=== PATIENT | female | born 1935 | race Caucasian/White ===

== ENCOUNTER → 2020-04-21 20:45 | Outpatient (CLI) | payer MEDICARE, OTHER, SELFPAY ==
[2019-11-27 16:33] VITALS: BMI 24.4
[2020-04-21 21:05] LABS: Absolute Lymphocyte Count 1.49 X10^3/uL (0.83-4.51); Basophil# 0.03 X10^3/uL; Basophil% 0.4 % (0-1); Eosinophil# 0.12 X10^3/uL; Eosinophils% 1.6 % (0-5); Hematocrit 42.7 % (37-47); Hemoglobin 13.8 g/dL (12.0-15.0); Lymphocyte # 1.49 X10^3/ul (4.0); Lymphocyte % 20.4 % (19-41); Mean Corp Hgb Conc 32.3 g/dL (32-36); Mean Corpuscular Hgb 30.1 pg (27.0-32.0); Mean Platelet Vol. 12.7 fl (6.2-12.0); Monocyte% 8.2 % (0-10); NRBC Flagged by Analyzer 0 % (0-5); Neutrophil # 5.04 X10^3/uL (2.7-7.7); Neutrophil % 69.3 % (47-70); Platelet Count 144 K/mm3 (150-450); RBC Distribution Width CV 12.8 % (11.6-14.6); RBC Distribution Width SD 43.5 fl (35.1-43.9); Red Blood Count 4.59 M/mm3 (4.2-5.4); White Blood Count 7.3 K/mm3 (4.4-11.0)
[2020-04-21 21:30] LABS: ALB/GLOB Ratio 1.2 RATIO (0.9-2.4); AST(SGOT) 19 U/L (15-37); Alanine Aminotransfer ALT/SGPT 19 U/L (13-56); Alkaline Phosphatase 77 U/L (45-117); Anion Gap 7 (5-15); BUN 10 mg/dL (7-18); CRP, High Sensitivity Cardiac 1.55 mg/L; Calcium,Total 9.4 mg/dL (8.5-10.1); Chloride 104 mmol/L (98-107); Cholesterol 290 mg/dL (200); Creatinine, Serum 0.71 mg/dL (0.55-1.02); EST Glomerular Filtration Rate 83 mL/min (>60); Est Glom Filt Rate - Afr Amer 100 mL/min (>60); Globulin 3.3 g/dL (2.2-4.2); Glucose 83 mg/dL (74-106); High Density Lipoprotein 76 mg/dL; Protein, Total 7.3 g/dL (6.4-8.2); Sodium Level 139 mmol/L (136-145); Thyroid Stim Hormone (TSH) 1.85 uIU/mL (0.358-3.74); Triglycerides 187 mg/dL; Very Low Density Lipoprotein 37 mg/dL (5-40)
== END ==
PROVIDERS: Visit Provider Nurse Practitioner
DX: M62.81 Muscle weakness (generalized) (principal); R07.9 Chest pain, unspecified; K21.9 Gastro-esophageal reflux disease without esophagitis; F32.9 Major depressive disorder, single episode, unspecified; R06.02 Shortness of breath; R63.4 Abnormal weight loss; E78.5 Hyperlipidemia, unspecified; R05 Cough
CPT/HCPCS: 80053; 80061; 84443; 85025; 86141

== ENCOUNTER → 2020-06-30 21:16 | Outpatient (CLI) | payer MEDICARE, OTHER, SELFPAY ==
[2020-06-30 19:35] VITALS: BMI 25.0
[2020-06-30 21:44] LABS: Absolute Lymphocyte Count 1.42 X10^3/uL (0.83-4.51); Absolute Neutrophil Count 4.8 X10^3/uL (2.0-7.7); Basophil# 0.02 X10^3/uL; Basophil% 0.3 % (0-1); Eosinophil# 0.12 X10^3/uL; Eosinophils% 1.7 % (0-5); Hematocrit 40.9 % (37-47); Hemoglobin 13.7 g/dL (12.0-15.0); Lymphocyte # 1.42 X10^3/ul (4.0); Lymphocyte % 20.3 % (19-41); Mean Corp Hgb Conc 33.5 g/dL (32-36); Mean Corpuscular Hgb 30.9 pg (27.0-32.0); Mean Corpuscular Volume 92.1 fL (81-99); Mean Platelet Vol. 12.2 fl (6.2-12.0); Monocyte# 0.63 X10^3/uL; NRBC Flagged by Analyzer 0 % (0-5); Neutrophil # 4.81 X10^3/uL (2.7-7.7); Neutrophil % 68.6 % (47-70); Platelet Count 192 K/mm3 (150-450); RBC Distribution Width CV 12.6 % (11.6-14.6); RBC Distribution Width SD 42.3 fl (35.1-43.9); Red Blood Count 4.44 M/mm3 (4.2-5.4)
[2020-06-30 21:56] LABS: ALB/GLOB Ratio 1.2 RATIO (0.9-2.4); AST(SGOT) 17 U/L (15-37); Alanine Aminotransfer ALT/SGPT 18 U/L (13-56); Albumin, Serum 3.8 g/dL (3.2-5.0); Alkaline Phosphatase 76 U/L (45-117); Anion Gap 4 (5-15); BUN 14 mg/dL (7-18); BUN/Creat Ratio 16.3 RATIO (10-20); Calcium,Total 9.7 mg/dL (8.5-10.1); Chloride 105 mmol/L (98-107); Creatinine, Serum 0.86 mg/dL (0.55-1.02); EST Glomerular Filtration Rate 67 mL/min (>60); Est Glom Filt Rate - Afr Amer 81 mL/min (>60); Globulin 3.3 g/dL (2.2-4.2); Glucose 88 mg/dL (74-106); Potassium 4.1 mmol/L (3.5-5.1); Protein, Total 7.1 g/dL (6.4-8.2); Sodium Level 139 mmol/L (136-145)
[2020-06-30 21:57] LABS: Vitamin B12 426 pg/mL (211-911)
== END ==
LOC: OLS.AHF 21:17 → LABSPEC 07-01 07:19
PROVIDERS: PCP Nurse Practitioner; Referring Provider Nurse Practitioner; Visit Provider Nurse Practitioner
DX: R06.02 Shortness of breath (principal); R53.83 Other fatigue; R42 Dizziness and giddiness
CPT/HCPCS: 80053; 82607; 82652; 85025

== ENCOUNTER → 2020-08-19 | Outpatient (CLI) | payer MEDICARE, OTHER, SELFPAY ==
[2020-08-19 20:19] VITALS: BMI 24.6
== END | disposition home or self-care (01) ==
LOC: OLS.AHF 21:01 → LABSPEC 08-20 07:53
PROVIDERS: Referring Provider Nurse Practitioner; Visit Provider Nurse Practitioner
DX: T79.2XXA Traumatic secondary and recurrent hemorrhage and seroma, initial encounter (principal); T81.89XA Other complications of procedures, not elsewhere classified, initial encounter
CPT/HCPCS: 87070; 87205

== ENCOUNTER → 2020-10-05 | Outpatient (CLI) | payer MEDICARE, OTHER, SELFPAY ==
[2020-10-05 18:47] VITALS: BMI 24.7
[2020-10-05 21:46] LABS: Absolute Lymphocyte Count 1.49 X10^3/uL (0.83-4.51); Absolute Neutrophil Count 4.4 X10^3/uL (2.0-7.7); Basophil# 0.02 X10^3/uL; Basophil% 0.3 % (0-1); Eosinophils% 1.5 % (0-5); Hematocrit 42.8 % (37-47); Hemoglobin 13.9 g/dL (12.0-15.0); Lymphocyte # 1.49 X10^3/ul (4.0); Lymphocyte % 22.6 % (19-41); Mean Corp Hgb Conc 32.5 g/dL (32-36); Mean Corpuscular Hgb 30.1 pg (27.0-32.0); Mean Corpuscular Volume 92.6 fL (81-99); Monocyte# 0.56 X10^3/uL; Monocyte% 8.5 % (0-10); NRBC Flagged by Analyzer 0 % (0-5); Neutrophil # 4.38 X10^3/uL (2.7-7.7); Neutrophil % 66.5 % (47-70); Platelet Count 194 K/mm3 (150-450); RBC Distribution Width CV 12.6 % (11.6-14.6); RBC Distribution Width SD 42.7 fl (35.1-43.9); Red Blood Count 4.62 M/mm3 (4.2-5.4); White Blood Count 6.6 K/mm3 (4.4-11.0)
[2020-10-05 22:00] LABS: ALB/GLOB Ratio 1.1 RATIO (0.9-2.4); AST(SGOT) 16 U/L (15-37); Alanine Aminotransfer ALT/SGPT 24 U/L (13-56); Albumin, Serum 3.8 g/dL (3.2-5.0); Alkaline Phosphatase 84 U/L (45-117); Anion Gap 4 (5-15); BUN 14 mg/dL (7-18); BUN/Creat Ratio 15.6 RATIO (10-20); Calcium,Total 9.5 mg/dL (8.5-10.1); Chloride 106 mmol/L (98-107); Cholesterol 285 mg/dL (200); EST Glomerular Filtration Rate 64 mL/min (>60); Est Glom Filt Rate - Afr Amer 77 mL/min (>60); Globulin 3.4 g/dL (2.2-4.2); Glucose 112 mg/dL (74-106); High Density Lipoprotein 67 mg/dL; Protein, Total 7.2 g/dL (6.4-8.2); Sodium Level 140 mmol/L (136-145); Triglycerides 221 mg/dL; Very Low Density Lipoprotein 44 mg/dL (5-40)
== END | disposition home or self-care (01) ==
PROVIDERS: Referring Provider Nurse Practitioner; Visit Provider Nurse Practitioner
DX: I10 Essential (primary) hypertension (principal); E78.5 Hyperlipidemia, unspecified; T81.89XA Other complications of procedures, not elsewhere classified, initial encounter
CPT/HCPCS: 80053; 80061; 85025

== ENCOUNTER → 2021-08-11 | Outpatient (CLI) | payer MEDICARE, OTHER, SELFPAY ==
[2021-08-11 22:34] LABS: ALB/GLOB Ratio 1.1 RATIO (0.9-2.4); AST(SGOT) 17 U/L (15-37); Alanine Aminotransfer ALT/SGPT 24 U/L (13-56); Albumin, Serum 3.9 g/dL (3.2-5.0); Alkaline Phosphatase 77 U/L (45-117); Anion Gap 4 (5-15); BUN 9 mg/dL (7-18); BUN/Creat Ratio 10.2 RATIO (10-20); CRP, High Sensitivity Cardiac 1.65 mg/L; Calcium,Total 9.6 mg/dL (8.5-10.1); Chloride 102 mmol/L (98-107); Creatinine, Serum 0.88 mg/dL (0.55-1.02); EST Glomerular Filtration Rate 65 mL/min (>60); Est Glom Filt Rate - Afr Amer 78 mL/min (>60); Globulin 3.6 g/dL (2.2-4.2); Glucose 117 mg/dL (74-106); Potassium 3.9 mmol/L (3.5-5.1); Protein, Total 7.5 g/dL (6.4-8.2); Sodium Level 137 mmol/L (136-145)
== END | disposition home or self-care (01) ==
PROVIDERS: PCP Nurse Practitioner; Visit Provider Nurse Practitioner
DX: I10 Essential (primary) hypertension (principal)
CPT/HCPCS: 80053; 86141

== ENCOUNTER → 2021-10-11 | Outpatient (CLI) | payer MEDICARE, OTHER, SELFPAY ==
[2021-10-11 22:14] LABS: Absolute Lymphocyte Count 0.98 X10^3/uL (0.83-4.51); Absolute Neutrophil Count 5.4 X10^3/uL (2.0-7.7); Basophil# 0.04 X10^3/uL; Basophil% 0.5 % (0-1); Eosinophils% 2.6 % (0-5); Hematocrit 44.6 % (37-47); Lymphocyte # 0.98 X10^3/ul (0.83-4.51); Lymphocyte % 12.9 % (19-41); Mean Corp Hgb Conc 33.6 g/dL (32-36); Mean Corpuscular Volume 92.1 fL (81-99); Mean Platelet Vol. 11.6 fl (6.2-12.0); Monocyte# 0.98 X10^3/uL; Monocyte% 12.9 % (0-10); NRBC Flagged by Analyzer 0 % (0-5); Neutrophil # 5.37 X10^3/uL (2.7-7.7); Platelet Count 197 K/mm3 (150-450); RBC Distribution Width CV 12.9 % (11.6-14.6); RBC Distribution Width SD 43.1 fl (35.1-43.9); Red Blood Count 4.84 M/mm3 (4.2-5.4); White Blood Count 7.6 K/mm3 (4.4-11.0)
[2021-10-11 22:34] LABS: BUN 7 mg/dL (7-18); Creatinine, Serum 0.76 mg/dL (0.55-1.02); Glucose 90 mg/dL (74-106)
[2021-10-11 22:35] LABS: AST(SGOT) 16 U/L (15-37); Alanine Aminotransfer ALT/SGPT 28 U/L (13-56); Albumin, Serum 3.5 g/dL (3.2-5.0); Alkaline Phosphatase 88 U/L (45-117); Anion Gap 7 (5-15); BUN/Creat Ratio 9.2 RATIO (10-20); Calcium,Total 9.1 mg/dL (8.5-10.1); Chloride 95 mmol/L (98-107); Cholesterol 228 mg/dL (200); EST Glomerular Filtration Rate 76 mL/min (>60); Est Glom Filt Rate - Afr Amer 92 mL/min (>60); Globulin 3.5 g/dL (2.2-4.2); High Density Lipoprotein 69 mg/dL; Sodium Level 132 mmol/L (136-145); Triglycerides 153 mg/dL; Very Low Density Lipoprotein 31 mg/dL (5-40)
== END | disposition home or self-care (01) ==
PROVIDERS: PCP Nurse Practitioner; Visit Provider Nurse Practitioner
DX: E78.5 Hyperlipidemia, unspecified (principal); I10 Essential (primary) hypertension
CPT/HCPCS: 80053; 80061; 85025

== ENCOUNTER → 2022-05-09 | Outpatient (CLI) | payer MEDICARE, OTHER, SELFPAY ==
--- NOTE | 2022-05-09 09:20 | NM_ITS ---
CLINICAL: Female, 87 years old. THORACIC BACK PAIN AFTER TWISTING ON STEPS WHOLE BODY NUCLEAR BONE SCAN TECHNIQUE: Following the IV administration of 26.1 mCi of Tc MDP, whole body bone imaging was performed with a gamma camera following a three hour delay. FINDINGS: Increased radiopharmaceutical activity is seen at the level of the T9 vertebrae. This is in keeping with the patient''s history of back injury. Symmetrical uptake is also seen in the posterior lateral aspects of the 12th ribs. This may represent possible nondisplaced rib fractures. NM/Bone Scan Whole Body IMPRESSION: Increased uptake at the level of the T9 vertebra suggestive of compression. Increased uptake also seen along the posterior-lateral aspect of both 12th ribs. Electronically Signed: Jose A Machado MD at 13:29 EDT ,
== END | disposition home or self-care (01) ==
LOC: NM 09:04
PROVIDERS: PCP Nurse Practitioner
DX: M54.6 Pain in thoracic spine (principal)
CPT/HCPCS: 78306; A9503

== ENCOUNTER → 2022-06-15 | Outpatient (CLI) | payer MEDICARE, OTHER, SELFPAY ==
[2022-06-15 23:25] LABS: Absolute Lymphocyte Count 1.26 X10^3/uL (0.83-4.51); Absolute Neutrophil Count 3.2 X10^3/uL (2.0-7.7); Basophil# 0.01 X10^3/uL; Basophil% 0.2 % (0-1); Eosinophil# 0.03 X10^3/uL; Eosinophils% 0.6 % (0-5); Hematocrit 39.4 % (37-47); Hemoglobin 13.7 g/dL (12.0-15.0); Lymphocyte # 1.26 X10^3/ul (0.83-4.51); Lymphocyte % 24.9 % (19-41); Mean Corp Hgb Conc 34.8 g/dL (32-36); Mean Corpuscular Hgb 32.4 pg (27.0-32.0); Mean Corpuscular Volume 93.1 fL (81-99); Mean Platelet Vol. 11.5 fl (6.2-12.0); Monocyte# 0.56 X10^3/uL; Monocyte% 11.1 % (0-10); NRBC Flagged by Analyzer 0 % (0-5); Neutrophil # 3.15 X10^3/uL (2.7-7.7); Neutrophil % 62.2 % (47-70); Platelet Count 155 K/mm3 (150-450); RBC Distribution Width CV 13.2 % (11.6-14.6); RBC Distribution Width SD 45.2 fl (35.1-43.9); Red Blood Count 4.23 M/mm3 (4.2-5.4); White Blood Count 5.1 K/mm3 (4.4-11.0)
[2022-06-15 23:46] LABS: ALB/GLOB Ratio 1.2 RATIO (0.9-2.4); AST(SGOT) 19 U/L (15-37); Alanine Aminotransfer ALT/SGPT 26 U/L (13-56); Albumin, Serum 3.6 g/dL (3.2-5.0); Alkaline Phosphatase 73 U/L (45-117); Anion Gap 9 (5-15); BUN 6 mg/dL (7-18); BUN/Creat Ratio 10.1 RATIO (10-20); Calcium,Total 9.2 mg/dL (8.5-10.1); Chloride 94 mmol/L (98-107); Creatinine, Serum 0.59 mg/dL (0.55-1.02); EST Glomerular Filtration Rate 102 mL/min (>60); Est Glom Filt Rate - Afr Amer 123 mL/min (>60); Globulin 2.9 g/dL (2.2-4.2); Glucose 85 mg/dL (74-106); Potassium 3.3 mmol/L (3.5-5.1); Protein, Total 6.5 g/dL (6.4-8.2); Sodium Level 132 mmol/L (136-145); Thyroid Stim Hormone (TSH) 1.98 uIU/mL (0.358-3.74)
== END | disposition home or self-care (01) ==
PROVIDERS: PCP Nurse Practitioner; Referring Provider Nurse Practitioner; Visit Provider Nurse Practitioner
DX: R19.7 Diarrhea, unspecified (principal); R63.4 Abnormal weight loss
CPT/HCPCS: 80053; 84443; 85025

== ENCOUNTER → 2022-06-27 | Outpatient (CLI) | payer MEDICARE, OTHER, SELFPAY ==
[2022-06-27 23:06] LABS: Absolute Lymphocyte Count 1.63 X10^3/uL (0.83-4.51); Absolute Neutrophil Count 5.6 X10^3/uL (2.0-7.7); Basophil# 0.02 X10^3/uL; Basophil% 0.2 % (0-1); Eosinophil# 0.05 X10^3/uL; Eosinophils% 0.6 % (0-5); Hematocrit 40.1 % (37-47); Hemoglobin 14.1 g/dL (12.0-15.0); Lymphocyte # 1.63 X10^3/ul (0.83-4.51); Lymphocyte % 20.2 % (19-41); Mean Corp Hgb Conc 35.2 g/dL (32-36); Mean Corpuscular Hgb 33.4 pg (27.0-32.0); Mean Platelet Vol. 11.4 fl (6.2-12.0); Monocyte# 0.81 X10^3/uL; NRBC Flagged by Analyzer 0 % (0-5); Neutrophil # 5.55 X10^3/uL (2.7-7.7); Neutrophil % 68.8 % (47-70); Platelet Count 235 K/mm3 (150-450); RBC Distribution Width CV 12.6 % (11.6-14.6); RBC Distribution Width SD 43.4 fl (35.1-43.9); Red Blood Count 4.22 M/mm3 (4.2-5.4); White Blood Count 8.1 K/mm3 (4.4-11.0)
[2022-06-27 23:30] LABS: ALB/GLOB Ratio 1.3 RATIO (0.9-2.4); AST(SGOT) 18 U/L (15-37); Alanine Aminotransfer ALT/SGPT 25 U/L (13-56); Albumin, Serum 3.7 g/dL (3.2-5.0); Alkaline Phosphatase 67 U/L (45-117); Anion Gap 7 (5-15); BUN 6 mg/dL (7-18); BUN/Creat Ratio 10.9 RATIO (10-20); Calcium,Total 9.1 mg/dL (8.5-10.1); Chloride 99 mmol/L (98-107); Creatinine, Serum 0.55 mg/dL (0.55-1.02); EST Glomerular Filtration Rate 111 mL/min (>60); Est Glom Filt Rate - Afr Amer 134 mL/min (>60); Globulin 2.9 g/dL (2.2-4.2); Glucose 96 mg/dL (74-106); Potassium 3.3 mmol/L (3.5-5.1); Protein, Total 6.6 g/dL (6.4-8.2); Sodium Level 134 mmol/L (136-145); Thyroid Stim Hormone (TSH) 1.91 uIU/mL (0.358-3.74)
== END | disposition home or self-care (01) ==
PROVIDERS: PCP Nurse Practitioner; Visit Provider Nurse Practitioner
DX: E16.2 Hypoglycemia, unspecified (principal); R63.0 Anorexia; R63.4 Abnormal weight loss; E53.8 Deficiency of other specified B group vitamins
CPT/HCPCS: 80053; 84443; 85025

== ENCOUNTER → 2022-07-24 | Outpatient (CLI) | payer MEDICARE, OTHER, SELFPAY ==
[2022-07-24 22:23] LABS: Absolute Lymphocyte Count 1.18 X10^3/uL (0.83-4.51); Absolute Neutrophil Count 5.5 X10^3/uL (2.0-7.7); Basophil# 0.03 X10^3/uL; Basophil% 0.4 % (0-1); Eosinophil# 0.06 X10^3/uL; Eosinophils% 0.8 % (0-5); Hematocrit 42.3 % (37-47); Hemoglobin 15.1 g/dL (12.0-15.0); Lymphocyte # 1.18 X10^3/ul (0.83-4.51); Lymphocyte % 15.6 % (19-41); Mean Corp Hgb Conc 35.7 g/dL (32-36); Mean Corpuscular Hgb 33.4 pg (27.0-32.0); Mean Corpuscular Volume 93.6 fL (81-99); Mean Platelet Vol. 11.1 fl (6.2-12.0); Monocyte# 0.81 X10^3/uL; Monocyte% 10.7 % (0-10); NRBC Flagged by Analyzer 0 % (0-5); Neutrophil # 5.48 X10^3/uL (2.7-7.7); Neutrophil % 72.4 % (47-70); Platelet Count 245 K/mm3 (150-450); RBC Distribution Width CV 11.8 % (11.6-14.6); RBC Distribution Width SD 40.8 fl (35.1-43.9); Red Blood Count 4.52 M/mm3 (4.2-5.4); White Blood Count 7.6 K/mm3 (4.4-11.0)
[2022-07-24 22:38] LABS: ALB/GLOB Ratio 1.1 RATIO (0.9-2.4); AST(SGOT) 15 U/L (15-37); Alanine Aminotransfer ALT/SGPT 22 U/L (13-56); Albumin, Serum 3.6 g/dL (3.2-5.0); Alkaline Phosphatase 65 U/L (45-117); Anion Gap 9 (5-15); BUN 8 mg/dL (7-18); CRP, High Sensitivity Cardiac 1.01 mg/L; Calcium,Total 9.1 mg/dL (8.5-10.1); Chloride 98 mmol/L (98-107); Cholesterol 248 mg/dL (200); Creatinine, Serum 0.47 mg/dL (0.55-1.02); EST Glomerular Filtration Rate 133 mL/min (>60); Est Glom Filt Rate - Afr Amer 161 mL/min (>60); Globulin 3.2 g/dL (2.2-4.2); Glucose 93 mg/dL (74-106); High Density Lipoprotein 77 mg/dL; Potassium 3.2 mmol/L (3.5-5.1); Protein, Total 6.8 g/dL (6.4-8.2); Sodium Level 134 mmol/L (136-145); Triglycerides 121 mg/dL; Very Low Density Lipoprotein 24 mg/dL (5-40)
[2022-07-25 09:23] LABS: Troponin-I HS 5 pg/mL (3.0-54.0)
== END | disposition home or self-care (01) ==
PROVIDERS: PCP Nurse Practitioner; Visit Provider Nurse Practitioner
DX: I10 Essential (primary) hypertension (principal)
CPT/HCPCS: 80053; 80061; 84484; 85025; 86141

== ENCOUNTER → 2022-08-02 | Outpatient (CLI) | payer MEDICARE, OTHER, SELFPAY ==
[2022-08-02 21:53] LABS: ALB/GLOB Ratio 1.2 RATIO (0.9-2.4); AST(SGOT) 15 U/L (15-37); Alanine Aminotransfer ALT/SGPT 24 U/L (13-56); Albumin, Serum 3.9 g/dL (3.2-5.0); Alkaline Phosphatase 70 U/L (45-117); Anion Gap 8 (5-15); BUN 9 mg/dL (7-18); BUN/Creat Ratio 13.1 RATIO (10-20); Calcium,Total 9.7 mg/dL (8.5-10.1); Chloride 101 mmol/L (98-107); Creatinine, Serum 0.69 mg/dL (0.55-1.02); EST Glomerular Filtration Rate 86 mL/min (>60); Est Glom Filt Rate - Afr Amer 104 mL/min (>60); Globulin 3.2 g/dL (2.2-4.2); Glucose 111 mg/dL (74-106); Protein, Total 7.1 g/dL (6.4-8.2); Sodium Level 136 mmol/L (136-145)
== END | disposition home or self-care (01) ==
PROVIDERS: PCP Nurse Practitioner; Visit Provider Nurse Practitioner
DX: E87.6 Hypokalemia (principal); R20.2 Paresthesia of skin
CPT/HCPCS: 80053

== ENCOUNTER → 2023-03-10 | Outpatient (CLI) | payer MEDICARE, OTHER, SELFPAY ==
--- NOTE | 2023-03-10 12:00 | RAD_ITS ---
EXAM: XR RIGHT RIBS AND AP CHEST, 3 OR MORE VIEWS CLINICAL INDICATION: fell off stool 1 week ago,pain getting worse TECHNIQUE: Frontal and oblique views of the right ribs and frontal view of the chest. This report was created using [employer] report generation technology. COMPARISON: None. FINDINGS: LUNGS AND PLEURAL SPACES: Unremarkable. No consolidation or edema. No pneumothorax. No effusion. HEART: Unremarkable. Cardiac silhouette not enlarged. MEDIASTINUM: Central airways and mediastinal contour are unremarkable. BONES/JOINTS: Unremarkable. No evidence of displaced rib fractures. RAD/Ribs Uni Min 3V w/PA Chest IMPRESSION: Negative chest and right ribs series. Electronically Signed: Shawn Corcoran MD at 15:13 EDT ,
== END | disposition home or self-care (01) ==
LOC: RAD 11:48
PROVIDERS: PCP Nurse Practitioner; Referring Provider Nurse Practitioner; Visit Provider Nurse Practitioner
DX: R07.81 Pleurodynia (principal)
CPT/HCPCS: 71101

== ENCOUNTER → 2023-04-27 | Outpatient (CLI) | payer MEDICARE, OTHER, SELFPAY ==
--- NOTE | 2023-04-27 10:25 | RAD_ITS ---
STUDY: X-RAY - UNILATERAL RIBS ( LEFT ) WITH CHEST REASON FOR EXAM: Female, 88 years old. Fall 3 steps fell into wood railing TECHNIQUE - RIBS: 4 view(s) of the ribs. TECHNIQUE - CHEST: Single PA view of the chest. COMPARISON: Comparison made to prior study March 10, 2023. FINDINGS - RIBS: Normal visualized ribs without a demonstrated fracture. FINDINGS - CHEST: Hyperinflation. Increased markings at the lung bases suggestive of scarring. There is blunting of the left costophrenic angle. Normal size heart. Normal mediastinum and rain. Normal visualized pulmonary arteries. There is atherosclerotic calcification of the aortic arch with tortuosity. There are diffuse degenerative changes of the visualized thoracic spine. Healed right rib fractures. There is no demonstrated abnormality of the visualized soft tissue structures of the upper abdomen. RAD/Ribs Uni Min 3V w/PA Chest IMPRESSION: RIBS: Healed right rib fractures. CHEST: Stable findings in the chest with increased markings at the lung bases and blunting of the left costophrenic angle. Electronically Signed: Jose A Machado MD at 11:04 EDT ,
== END | disposition home or self-care (01) ==
LOC: RAD 10:20
PROVIDERS: PCP Nurse Practitioner; Referring Provider Nurse Practitioner; Visit Provider Nurse Practitioner
DX: M54.6 Pain in thoracic spine (principal)
CPT/HCPCS: 71101

== ENCOUNTER → 2023-06-25 | Outpatient (CLI) | payer MEDICARE, SELFPAY ==
--- NOTE | 2023-06-25 10:49 | RAD_ITS ---
ACR Level 3 findings have been noted. An addendum which confirms receipt of the report will follow. INDICATION: PAIN, COMPRESSION FRACTURE EXAMINATION/TECHNIQUE: X-RAY - XR Spine Thoracic Min 4 Views COMPARISON: None FINDINGS: VERTEBRAE: There are multiple age indeterminate compression deformities involving the thoracic spine. No spondylolisthesis. Exaggeration of the normal thoracic kyphosis. Severe multilevel facet arthropathy. DISCS: Severe multilevel degenerative disc disease and spondylosis. INCLUDED CHEST/ABDOMEN: No acute abnormalities. RAD/Thoracic Spine Min 4 Views IMPRESSION: Multiple age indeterminate compression deformities involving the thoracic spine. Recommend thoracic spine CT without contrast for better characterization. Severe multilevel degenerative disc disease and spondylosis. Exaggerated kyphosis of the thoracic spine. Electronically Signed: Jesse Walker MD at 2:26 EDT ,
== END | disposition home or self-care (01) ==
PROVIDERS: PCP Nurse Practitioner; Referring Provider Nurse Practitioner; Visit Provider Nurse Practitioner
DX: T14.8XXA Other injury of unspecified body region, initial encounter (principal)
CPT/HCPCS: 72074

== ENCOUNTER → 2023-08-28 | Outpatient (CLI) | payer MEDICARE, SELFPAY ==
[2023-08-28 12:16] LABS: Absolute Lymphocyte Count 1.09 X10^3/uL (0.83-4.51); Absolute Neutrophil Count 6.7 X10^3/uL (2.0-7.7); Basophil# 0.02 X10^3/uL; Basophil% 0.2 % (0-1); Eosinophil# 0.03 X10^3/uL; Eosinophils% 0.3 % (0-5); Hematocrit 43.2 % (37-47); Hemoglobin 14.2 g/dL (12.0-15.0); Lymphocyte # 1.09 X10^3/ul (0.83-4.51); Lymphocyte % 12.4 % (19-41); Mean Corp Hgb Conc 32.9 g/dL (32-36); Mean Corpuscular Hgb 31.4 pg (27.0-32.0); Mean Corpuscular Volume 95.6 fL (81-99); Mean Platelet Vol. 10.5 fl (6.2-12.0); Monocyte# 0.93 X10^3/uL; Monocyte% 10.6 % (0-10); NRBC Flagged by Analyzer 0 % (0-5); Neutrophil # 6.72 X10^3/uL (2.7-7.7); Neutrophil % 76.3 % (47-70); Platelet Count 218 K/mm3 (150-450); RBC Distribution Width CV 12.5 % (11.6-14.6); RBC Distribution Width SD 44.4 fl (35.1-43.9); Red Blood Count 4.52 M/mm3 (4.2-5.4); White Blood Count 8.8 K/mm3 (4.4-11.0)
[2023-08-28 13:11] LABS: ALB/GLOB Ratio 1.2 RATIO (0.9-2.4); AST(SGOT) 16 U/L (15-37); Alanine Aminotransfer ALT/SGPT 22 U/L (13-56); Albumin, Serum 3.8 g/dL (3.2-5.0); Alkaline Phosphatase 73 U/L (45-117); Anion Gap 6 (5-15); BUN 5 mg/dL (7-18); BUN/Creat Ratio 8.9 RATIO (10-20); Calcium,Total 9.2 mg/dL (8.5-10.1); Chloride 102 mmol/L (98-107); Creatinine, Serum 0.56 mg/dL (0.55-1.02); EST Glomerular Filtration Rate 108 mL/min (>60); Est Glom Filt Rate - Afr Amer 131 mL/min (>60); Globulin 3.1 g/dL (2.2-4.2); Glucose 96 mg/dL (74-106); Potassium 3.6 mmol/L (3.5-5.1); Protein, Total 6.9 g/dL (6.4-8.2); Sodium Level 136 mmol/L (136-145); Thyroid Stim Hormone (TSH) 1.33 uIU/mL (0.358-3.74)
== END | disposition home or self-care (01) ==
LOC: LAB 11:05
PROVIDERS: PCP Nurse Practitioner; Referring Provider Internal Medicine Cardiovascular Disease; Visit Provider Internal Medicine Cardiovascular Disease
DX: I10 Essential (primary) hypertension (principal); R53.83 Other fatigue; E78.5 Hyperlipidemia, unspecified; R42 Dizziness and giddiness
CPT/HCPCS: 36415; 80053; 84443; 85025

== ENCOUNTER → 2023-09-13 | Outpatient (CLI) | payer MEDICARE, SELFPAY ==
--- NOTE | 2023-09-13 12:39 | ECHOD_ITS ---
Reason For Study: SHORTNESS OF BREATH Procedure This was a 2D Doppler, Color Flow transthoracic echocardiogram. Exam performed in department. Left Ventricle Normal LV size. Mild concentric left ventricular hypertrophy. The left ventricular ejection fraction is 65 %. Stage 2 diastolic dysfunction. Right Ventricle Normal right ventricle. Atria The left and right atria are normal. Mitral Valve Trivial mitral valve insufficiency. Tricuspid Valve Trivial tricuspid valve insufficiency. Unable to estimate RV systolic pressure due to insufficient tricuspid regurgitant envelope. Aortic Valve Aortic sclerosis, no stenosis. Pulmonic Valve The pulmonic valve is not well visualized. Great Vessels Normal sized aortic root. Pericardium/Pleural No pericardial effusion. MMode/2D Measurements & Calculations LVIDd: 4.0 cm IVSd: 1.3 cm Ao root diam: 3.2 cm LVIDs: 2.5 cm LVPWd: 1.1 cm FS: 38.3 % LAV(MOD-bp): 32.7 ml LVAd ap4: 20.4 cm2 LVAd ap2: 19.2 cm2 LAV(MOD-bp) Indexed: 23.5 ml/m2 LVLd ap4: 6.8 cm LVLd ap2: 6.7 cm LAV(MOD-sp2): 31.7 ml EDV(MOD-sp4): 51.4 ml EDV(MOD-sp2): 46.4 ml LAV(MOD-sp4): 33.3 ml EDV(sp4-el): 52.3 ml EDV(sp2-el): 46.7 ml LVAs ap4: 10.6 cm2 LVAs ap2: 10.2 cm2 LVLs ap4: 5.5 cm LVLs ap2: 5.3 cm ESV(MOD-sp4): 18.1 ml ESV(MOD-sp2): 16.9 ml ESV(sp4-el): 17.3 ml ESV(sp2-el): 16.7 ml EF(MOD-sp4): 64.7 % EF(MOD-sp2): 63.6 % EF(sp4-el): 66.9 % SV(MOD-sp4): 33.3 ml SV(MOD-sp2): 29.5 ml SV(sp4-el): 35.0 ml LA dimension(2D): 3.7 cm LA A4 area: 14.2 cm2 RA A4 area: 11.1 cm2 TAPSE: 1.9 cm Time Measurements MV dec time: 0.17 sec Doppler Measurements & Calculations MV E max brant: 68.0 cm/sec Lat Peak E' Brant: 4.3 cm/sec Med Peak E' Brant: 4.8 cm/sec MV A max brant: 131.1 cm/sec E/E' lat: 15.9 E/E' med: 14.2 MV E/A: 0.52 Ao V2 max: 115.5 cm/sec LV V1 max: 89.3 cm/sec PA V2 max: 94.5 cm/sec Ao max P.3 mmHg LV V1 max P.2 mmHg PA V2 mean: 68.1 cm/sec Ao V2 mean: 84.4 cm/sec LV V1 mean P.7 mmHg Ao mean P.2 mmHg LV V1 mean: 61.1 cm/sec Ao V2 VTI: 21.7 cm LV V1 VTI: 15.7 cm AV (velocity ratio): 0.72 ECHO/Echo Complete Interpretation Summary Mild concentric left ventricular hypertrophy. The left ventricular ejection fraction is 65 %. Stage 2 diastolic dysfunction. Ordering Physician: Anya Etienne Referring Physician: Yumiko Rodriguez Performed By: Izzy Hickey, JERADCS, RVT
== END | disposition home or self-care (01) ==
PROVIDERS: PCP Nurse Practitioner; Referring Provider Internal Medicine Cardiovascular Disease; Visit Provider Internal Medicine Cardiovascular Disease
DX: R06.02 Shortness of breath (principal); R53.83 Other fatigue; E78.5 Hyperlipidemia, unspecified; I10 Essential (primary) hypertension; R42 Dizziness and giddiness
CPT/HCPCS: 93306

== ENCOUNTER → 2023-12-04 | Outpatient (CLI) | payer MEDICARE, SELFPAY ==
--- OUTSIDE RECORDS SUMMARY | 2023-12-04 21:25 | XMS RPT_ITS | CCD ---
Author Name Unknown Address [address] [place] [address] Organization [facility] Care Team Providers Care Director Medical Writing Name Role Phone Agustin Anguiano Unavailable [phone] Michael CRISOSTOMO.Yumiko ORDAZ Primary Care Provide Allergies Allergy Classification Reported Allergen(s) Allergy Type Date of Onset Reaction(s) Facility (1 source) Amoxicillin / Clavulanate Drug Allergy 07-26-2015 Diarrhea [facility] (1 source) cefdinir Drug Allergy 01-19-2017 Diarrhea [facility] (1 source) HMG-CoA reductase inhibitor Drug Allergy 07-26-2015 Other: See Comments [facility] Medications Completed/Discontinued Medications Medication Drug Class(es) Dates Sig (Normalized) Sig (Original) aspirin 81 mg oral tablet (1 source) Platelet Aggregation Inhibitor, Nonsteroidal Anti-inflammatory Drug take 1 tablet by mouth once daily Aspirin 81 mg Tab Take 81 mg by mouth once daily. 0 Active Problems Active Problems Problem Classification Problem Date Documented Da te Episodic/Chronic Chronic obstructive pulmonary disease and bronchiectasis (1 source) Chronic obstructive lung disease; Translations: [Chronic obstructive pulmonary disease, unspecified] Onset: 04-05-2017 03-26-2018 Chronic Disorders of lipid metabolism (1 source) Hyperlipidemia; Translations: [Hyperlipidemia, unspecified] Onset: 04-28-2013 11-21-2021 Chronic Essential hypertension (1 source) Hypertensive disorder; Translations: [Essential (primary) hypertension] Onset: 05-12-2014 11-21-2021 Chronic Other and ill-defined cerebrovascular disease (1 source) Intracranial aneurysm; Translations: [Cerebral aneurysm, nonruptured] Onset: 09-19-2016 11-22-2021 Chronic Other non-traumatic joint disorders (1 source) Hip pain; Translations: [Pain in left hip] Episodic Residual codes; unclassified (1 source) Hypoxia; 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] Onset: 03-27-2018 03-27-2018 Chronic Past or Other Problems Problem Classification Problem Date Documented Da te Episodic/Chronic Conditions associated with dizziness or vertigo (1 source) Vertigo; Translations: [Dizziness and giddiness] Onset: 08-23-2017 08-23-2017 Episodic Fracture of neck of femur (hip) (1 source) Closed fracture of hip; Translations: [Fracture of unspecified part of neck of left femur, subsequent encounter for closed fracture with routine healing] Onset: 03-23-2018 03-27-2018 Episodic Malaise and fatigue (1 source) Asthenia; Translations: [Other malaise] Onset: 03-26-2018 03-27-2018 Episodic Other aftercare (1 source) Follow-up status; Translations: [Encounter for other specified aftercare] Onset: 03-27-2018 03-27-2018 Episodic Other gastrointestinal disorders (1 source) Constipation; Translations: [Constipation, unspecified] Onset: 03-27-2018 03-27-2018 Episodic Other lower respiratory disease (1 source) Hypoxia; Translations: [Hypoxemia] Onset: 03-27-2018 03-27-2018 Episodic Results Test Name Value Interpretation Reference Range Facil ity Encounters Encounter Date Encounter Type Care Provider Facility Start: 03-24-2022 End: 03-24-2022 Subsequent hospital visit by physician [facility] Mabel Wharton Work Phone: Radiology Procedures Date Procedure Procedure Detail Performing Clinician Start: 03-24-2022 Radex hip unilateral with pelvis 2-3 views Carlos Torres PA-C Work Phone: Plan of Treatment Date Care Activity Detail Author Start: 12-24-2022 Urine microalbumin profile DTAP,TDAP ,TD (2 - Tdap) [facility] Start: 07-27-2022 Influenza vaccination INFLUENZA (Sea son Ended) [facility] Start: 04-02-2022 DIABETES SCREEN DIABETES SCREEN [facility] Start: 11-26-2021 ADVANCE DIRECTIVE DISCUSSION ADVANCE DIRECTIVE DISCUSSION [facility] Start: 08-28-2021 COVID-19 VACCINE (3 - Booster for Moderna series) COVID-19 VACCINE (3 - Booster for Moderna series) [facility] Start: 02-12-2014 SHINGRIX VACCINE (2 of 3) FLANNERY GRIX VACCINE (2 of 3) [facility] Immunizations Immunization Date Immunization Notes Care Provider Cain leonardo 09-02-2019 influenza, high dose seasonal, preservative-free [facility] Work Phone: [facility] 08-27-2019 influenza, injectabl e, quadrivalent, contains preservative [facility] Work Phone: [facility] 05-21-2019 zoster vaccine, recombinant, adjuvanted, (SHINGRIX) 50 mcg/0.5 mL injection [employer] [facility] Work Phone: [facility] Work Phone: Payers Date Payer Category Payer Unknown [employer] SUPPLEMENT [id number] 2015-Present [phone] [address] [place] [address] Indemnity [id number] 2003 Medicare MEDICARE MEDICAR E A AND B [id number] 2003-Present [phone] [address] [address] [place] [address] Medicare [id number] Social History Date Type Detail Facility Start: 11-01-2012 [facility] [place] Ex-sm[facility] Work Phone: Start: 03-12-1953 End: 05-12-2006 History of tobacco use Current smoker [facility] Work Phone: Start: 03-12-1953 End: 05-12-2006 History of tobacco use Cigarette Smoker [facility] Work Phone: Start: 11-01-2012 Cigarettes smoked current (pack per day) - Reported 1 [facility] Start: 11-01-2012 Tobacco use and exposure Smokeless tobacco non-user [facility] Work Phone: Start: 10-13-2019 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) [facility] Start: 1935 Sex Assigned At Not on file [facility] Start: 03-14-2022 End: 03-24-2022 Exposure to SARS-CoV-2 (event) Not sure [facility] Medical Equipment Procedure Code Equipment Code Equipment Origin al Text Equipment Identifier Dates Cement Simplex P Bone Radiopaque Full Dose Sterile - [id number] Start: 03-24-2018 Cement Simplex P Bone Radiopaque Full Dose Sterile - [id number] Start: 03-24-2018 Shell 48mm C Hemispherical Tritanium Acetabular Primary Rim Cluster Hole - [id number] Start: 03-24-2018 Liner Mdm 36mm C Cocr Acetabular 2 Mobility Modular Hip - [id number] Start: 03-24-2018 Stem Accolade 12 7d 6 49mm Offset 158mm 37mm Femoral Cemented Neck Hip - [id number] Start: 03-24-2018 Insert Mobile Be aring Hip X3 Acetabular Anatomic Dual Mobility Modular 22.2 - [id number] Start: 03-24-2018 Head V40 Lfit 22 mm +0mm Offset Taper Cocr Femoral Primary Hip - [id number] Start: 03-24-2018 Spacer Accolade C 14mm Large Femoral Ring Style Cemented 6 7 Stem Hip - [id number] Start: 03-24-2018 Goals Date Patient Goal Desired Activity /State Clinical Notes 03-24-2018 to 04-03-2022 BOZENA Thurman - 03/24/2022 12:45 PM EDT Note Date & Type Note Facility 04-03-2022 Note HNO ID: [id number] Author: Osvaldo Hubbard MD Service: ? Author Type: Physician Type: Progress Notes Filed: 04/03/2022 9:48 PM Note Text: POST OP Ms. Reeder presents today for her 4-year postop visit from: Follow Up and Hip Replacement of the Left Hip History: PAIN EVALUATION 03/24/2022 1315 Pain Level: 0 Pain Location: Hip-Left The patient denies swelling, warmth, discharge, drainage, fevers, chills, sweats. She reports compliance none She reports no change in past medical AND surgical history, medications, allergies, social history, family history and review of systems since last visit, with the exception of the following: None Review of Systems Constitutional: Negative for fever. Respiratory: Negative for cough and shortness of breath. Cardiovascular: Negative for chest pain. Radiographs: XR HIP 2V AP/LAT LEFT (AK,FL,ME) Narrative: * * *Final Report* * * DATE OF EXAM: Mar 24 2022 1:05PM OLAMIDE [id number] - XR HIP 2V AP/ LAT LT / PROCEDURE REASON: M25.552-Pain in left hip * * * * Physician Interpretation * * * * XR HIP 2V AP/ LAT LT EXAM DATE/TIME: 03/24/2022 1:05 PM HISTORY: 87 years old Clinical information: Pain in left hip LEFT HIP PAIN-BETSY-AP LOW PELVIS PER ORTHO DR PROTOCOL Pelvis, cross table lateral TECHNIQUE: Images: XR HIP 2V AP/ LAT LT Comparison: 03/24/2019. RESULT: Findings: The components of the LEFT total hip arthroplasty are in good alignment with the respective bones and each other. There is no evidence of loosening of the components. Marked bony demineralization. No fractures or dislocations are seen. 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 Stable left total hip arthroplasty Plan: 1. Continue weightbearing as tolerated 2. We reviewed total hip precautions and reviewed antibiotic prophylactic protocols 3. Follow-up 3 years for repeat clinical/radiographic evaluation Osvaldo Hubbard MD [facility] 03-24-2022 Note HNO ID: [id number] Author: BOZENA Thurman Service: Radiology Author Type: Technologist Type: Progress Notes Filed: 03/24/2022 1:06 PM Note Text: Radiology Service Progress Note PATIENT NAME: Mi Reeder DATE OF SERVICE: March 24, 2022 TIME: 1:06 PM PATIENT IDENTITY VERIFICATION COMPLETED USING TWO (2) IDENTIFIERS: Name and Date of confirmed by patient verbally. FALL SCREENING: Has the patient had 2 falls in the last year or 1 fall with injury or currently using an Ambulatory Assistive Device (Walker, Cane, Wheelchair, Crutches, etc.)? Yes, Patient High Risk for Falls What interventions were put in place to prevent falls during this visit? Offered Assistance with Transfers/Clothing and Increased Observations by Caregivers PATIENT GENDER DATA: Female. status: : No status: NO. PATIENT RELEVANT IMPLANT DATA REVIEWED: Not Applicable RADIOLOGY DEPARTMENT: General X-ray: Exam(s) Completed: Pelvis X-Ray: Pelvis with Hip Left and Wt. Bearing PERIPHERAL IV DATA: Not applicable SIGNED BY: BOZENA Thurman March 24, 2022 1:06 PM [facility] 03-24-2022 History of Present illness Narrative Radiology Service Progress Note PATIENT NAME: Mi Reeder DATE OF SERVICE: March 24, 2022 TIME: 1:06 PM PATIENT IDENTITY VERIFICATION COMPLETED USING TWO (2) IDENTIFIERS: Name and Date of confirmed by patient verbally. FALL SCREENING: Has the patient had 2 falls in the last year or 1 fall with injury or currently using an Ambulatory Assistive Device (Walker, Cane, Wheelchair, Crutches, etc.)? Yes, Patient High Risk for Falls What interventions were put in place to prevent falls during this visit? Offered Assistance with Transfers/Clothing and Increased Observations by Caregivers PATIENT GENDER DATA: Female. status: : No status: NO. PATIENT RELEVANT IMPLANT DATA REVIEWED: Not Applicable RADIOLOGY DEPARTMENT: General X-ray: Exam(s) Completed: Pelvis X-Ray: Pelvis with Hip Left and Wt. Bearing PERIPHERAL IV DATA: Not applicable SIGNED BY: BOZENA Thurman March 24, 2022 1:06 PM documented in this encounter [facility] 08-03-2021 Note Patient Outreach ([facility]) MI REEDER ([id number]) 1935 F Date Time Provider Department 08/03/21 REEMA ROME During your visit today, we recorded the following information about you: Reema Rome RN 08/03/2021 9:58 AM Signed [facility] CDM Engagement Provider Action/FYI: Patient does not even see Dr. Noble anymore Updated PCP and removed from [facility] program Contact Made with Patient: Yes Patient identified by name and . Discussed care with patient Robbie santana name is Reema Rome RN your Getter Filler from Yumiko Rodriguez APRN.CNP office at the [facility]. I am reaching out today because I noticed it has been a few weeks since I have seen any responses from you on your questionnaire. I wanted to check on you and make sure you are doing well, and to remind you that your Yumiko Rodriguez APRN.CNP recommended this program for you so that you can stay better connected to your health. I will be monitoring your responses on the questionnaire to make sure we are not seeing any changes in your health that your Primary Care Physician needs to know about, or looking for improvements and keeping Yumiko Rodriguez APRN.CNP informed about it all. You and I will check in together anytime a problem arises, and determine a solution. I am here to help you stay healthy, and stay connected to your doctor's office. How can I help you in this program? Patient had not been seen by PCP in 2 years and all RX are . Patient stated she does not see Dr. Noble anymore. Reema Rome RN Front Desk Admin [phone] Allergies As of Date: 08/03/2021 Noted Allergy Reaction AMOXICILLIN-POT CLAVULANATE 07/26/2015 6 - Diarrhea CEFDINIR 01/19/2017 6 - Diarrhea [id number] REDUCTASE INHIBIT*07/26/2015 14 - Other: See Comments Comments: Body aches Date Reviewed: 05/21/2019 Reviewed by: Layla Gorman MA - Fully Assessed Prescriptions as of 08/03/2021 - losartan (COZAAR) 100 mg tablet Take 1 tablet by mouth once daily. - Hydrochlorothiazide 12.5 mg capsule Take 1 capsule by mouth once daily. - diltiazem CR (TIAZAC, TAZTIA XT) 180 mg 24 hr capsule Take 1 capsule by mouth once daily. - zoster vaccine, recombinant, adjuvanted, (SHINGRIX) 50 mcg/0.5 mL injection 0.5ml IM at month 0 and then in 2-6 months - COMPOUNDED PRESCRIPTION 3 LPM O2 via nasal cannula with any sleep. Assoc DX: G47.34, J43.2. - loratadine (CLARITIN) 10 mg tablet Take 10 mg by mouth as needed. - Aspirin 81 mg Tab Take 81 mg by mouth once daily. Problem List As Of Date 08/03/2021 Noted Resolved Hyperlipidemia [E78.5] 04/28/2013 HTN (hypertension) [I10] 05/12/2014 Pancreatitis [K85.90] 02/27/2015 04/05/2017 Brain aneurysm [I67.1] 09/19/2016 UTI (urinary tract infection) [N39.0] 09/19/2016 04/05/2017 COPD (chronic obstructive pulmonary disease) (H*04/05/2017 Vertigo [R42] 08/23/2017 Closed fracture of left hip with routine healin*03/23/2018 Hip fracture, left (HCC) [S72.002A] 03/23/2018 03/26/2018 Hypokalemia [E87.6] 03/24/2018 03/26/2018 Debility [R53.81] 03/26/2018 Constipation [K59.00] 03/27/2018 Hypoxia [R09.02] 03/27/2018 Nocturnal hypoxia [G47.34] 03/27/2018 Aftercare [Z51.89] 03/27/2018 Encounter Status:Closed by REEMA ROME on 08/03/21 [facility] 08-03-2021 Note HNO ID: [id number] Author: Reema Rome RN Service: ? Author Type: Registered Nurse Type: Progress Notes Filed: 08/03/2021 9:58 AM Note Text: [facility] CDM Engagement Provider Action/FYI: Patient does not even see Dr. Noble anymore Updated PCP and removed from [facility] program Contact Made with Patient: Yes Patient identified by name and . Discussed care with patient Robbie santana name is Reema Rome RN your Getter Filler from Yumiko Rodriguez APRN.CNP office at the [facility]. I am reaching out today because I noticed it has been a few weeks since I have seen any responses from you on your questionnaire. I wanted to check on you and make sure you are doing well, and to remind you that your Yumiko Rodriguez APRN.CNP recommended this program for you so that you can stay better connected to your health. I will be monitoring your responses on the questionnaire to make sure we are not seeing any changes in your health that your Primary Care Physician needs to know about, or looking for improvements and keeping Yumiko Rodriguez APRN.CNP informed about it all. You and I will check in together anytime a problem arises, and determine a solution. I am here to help you stay healthy, and stay connected to your doctor's office. How can I help you in this program? Patient had not been seen by PCP in 2 years and all RX are . Patient stated she does not see Dr. Noble anymore. Reema Rome RN Front Desk Admin [phone] [facility] 07-14-2021 Note HNO ID: [id number] Author: Bonnie Maciel RN Service: ? Author Type: Registered Nurse Type: Progress Notes Filed: 07/14/2021 4:02 PM Note Text: [facility]M TELEPHONIC OUTREACH Provider Action/FYI: Denies any new or worsening symptoms. Appreciated call. Contact made with patient: Yes Patient identified by name and . Discussed care with patient It?s nice talking to you again. As a reminder, this is our bi-weekly check-in where I will be asking you questions about your health. This will only take a few minutes of your time. Is this a good time? Yes Symptoms What Chronic Disease(s) does the patient have: COPD Do you check your blood pressures at home? Yes, Enter readings: stable Do you have new or worse shortness of breath with activity? No Do you have new or worsening cough? No Do you have new or worsening wheezing? No Do you need to use your rescue (Albuterol) inhaler or nebulizer more often than normal? No Are you having any other symptoms that your PCP needs to know about? No Symptom Escalation The patient required an escalation for symptom(s)? No Medications Do you have any questions about taking your medication or which medications you should be on? No Do you need any medication refills at this time, including any of the medications you might take only when needed? No Social We would like to make sure you have what you need so that your basic needs are met- including your personal safety, food, housing and medications? Would you like to speak with a social work security team lead to help give you support for any of these needs? No It can be normal to feel anxious or down during a time like this. Would you like to talk to a mental health professional about how you have been feeling? No Closing Thank you for taking the time to talk with me today. We want to work with you to ensure that we are keeping your medical condition(s) well-controlled and to keep you healthy and out of the doctor's office or hospital. It?s also not too late for me to sign you up for automated weekly questionnaires through [employer]. This is an easy way for us to stay connected each week. Are you interested? No, I understand. We can always sign you up in the future if you change your mind. Just as a reminder, will continue to call you every other week to check in on your health. Our calls should take 10-15 minutes or less. Remember, if you have concerns in between our calls, please call your PCP's office right away. Thank you. Enter next patient outreach date for two weeks on the same day of the week as today in the Track Pt Outreach and End outreach. [facility] 07-14-2021 Note Patient Outreach ([facility] MI REEDER ([id number]) 1935 F Date Time Provider Department 07/14/21 BONNIE MACIEL During your visit today, we recorded the following information about you: Bonnie Maciel RN 07/14/2021 4:02 PM Signed [facility] TELEPHONIC OUTREACH Provider Action/FYI: Denies any new or worsening symptoms. Appreciated call. Contact made with patient: Yes Patient identified by name and . Discussed care with patient It?s nice talking to you again. As a reminder, this is our bi-weekly check-in where I will be asking you questions about your health. This will only take a few minutes of your time. Is this a good time? Yes Symptoms What Chronic Disease(s) does the patient have: COPD Do you check your blood pressures at home? Yes, Enter readings: stable Do you have new or worse shortness of breath with activity? No Do you have new or worsening cough? No Do you have new or worsening wheezing? No Do you need to use your rescue (Albuterol) inhaler or nebulizer more often than normal? No Are you having any other symptoms that your PCP needs to know about? No Symptom Escalation The patient required an escalation for symptom(s)? No Medications Do you have any questions about taking your medication or which medications you should be on? No Do you need any medication refills at this time, including any of the medications you might take only when needed? No Social We would like to make sure you have what you need so that your basic needs are met- including your personal safety, food, housing and medications? Would you like to speak with a social work security team lead to help give you support for any of these needs? No It can be normal to feel anxious or down during a time like this. Would you like to talk to a mental health professional about how you have been feeling? No Closing Thank you for taking the time to talk with me today. We want to work with you to ensure that we are keeping your medical condition(s) well-controlled and to keep you healthy and out of the doctor's office or hospital. It?s also not too late for me to sign you up for automated weekly questionnaires through [employer]. This is an easy way for us to stay connected each week. Are you interested? No, I understand. We can always sign you up in the future if you change your mind. Just as a reminder, will continue to call you every other week to check in on your health. Our calls should take 10-15 minutes or less. Remember, if you have concerns in between our calls, please call your PCP's office right away. Thank you. Enter next patient outreach date for two weeks on the same day of the week as today in the Track Pt Outreach and End outreach. Allergies As of Date: 07/14/2021 Noted Allergy Reaction AMOXICILLIN-POT CLAVULANATE 07/26/2015 6 - Diarrhea CEFDINIR 01/19/2017 6 - Diarrhea UOTVAEJ-PAM-IDF REDUCTASE INHIBIT*07/26/2015 14 - Other: See Comments Comments: Body aches Date Reviewed: 05/21/2019 Reviewed by: Layla Gorman MA - Fully Assessed Reason for Visit: community monitoring outreach [Other] Cmt: checkin Prescriptions as of 07/14/2021 - losartan (COZAAR) 100 mg tablet Take 1 tablet by mouth once daily. - Hydrochlorothiazide 12.5 mg capsule Take 1 capsule by mouth once daily. - diltiazem CR (TIAZAC, TAZTIA XT) 180 mg 24 hr capsule Take 1 capsule by mouth once daily. - zoster vaccine, recombinant, adjuvanted, (SHINGRIX) 50 mcg/0.5 mL injection 0.5ml IM at month 0 and then in 2-6 months - COMPOUNDED PRESCRIPTION 3 LPM O2 via nasal cannula with any sleep. Assoc DX: G47.34, J43.2. - loratadine (CLARITIN) 10 mg tablet Take 10 mg by mouth as needed. - Aspirin 81 mg Tab Take 81 mg by mouth once daily. Problem List As Of Date 07/14/2021 Noted Resolved Hyperlipidemia [E78.5] 04/28/2013 HTN (hypertension) [I10] 05/12/2014 Pancreatitis [K85.90] 02/27/2015 04/05/2017 Brain aneurysm [I67.1] 09/19/2016 UTI (urinary tract infection) [N39.0] 09/19/2016 04/05/2017 COPD (chronic obstructive pulmonary disease) (H*04/05/2017 Vertigo [R42] 08/23/2017 Closed fracture of left hip with routine healin*03/23/2018 Hip fracture, left (HCC) [S72.002A] 03/23/2018 03/26/2018 Hypokalemia [E87.6] 03/24/2018 03/26/2018 Debility [R53.81] 03/26/2018 Constipation [K59.00] 03/27/2018 Hypoxia [R09.02] 03/27/2018 Nocturnal hypoxia [G47.34] 03/27/2018 Aftercare [Z51.89] 03/27/2018 Encounter Status:Closed by BONNIE MACIEL on 07/14/21 [facility] 06-30-2021 Note Patient Outreach ([facility] MI REEDER ([id number]) 1935 F Date Time Provider Department 06/30/21 BONNIE MACIEL [facility] During your visit today, we recorded the following information about you: Bonnie Maciel RN 06/30/2021 11:00 AM Signed [facility] TELEPHONIC OUTREACH Provider Action/FYI: Denies any new or worsening symptoms. Reports doing well overall. Appreciated call. Contact made with patient: Yes Patient identified by name and . Discussed care with patient It?s nice talking to you again. As a reminder, this is our bi-weekly check-in where I will be asking you questions about your health. This will only take a few minutes of your time. Is this a good time? Yes Symptoms What Chronic Disease(s) does the patient have: COPD Do you check your blood pressures at home? Yes, Enter readings: reports stable-130/80's Do you have new or worse shortness of breath with activity? No Do you have new or worsening cough? No Do you have new or worsening wheezing? No Do you need to use your rescue (Albuterol) inhaler or nebulizer more often than normal? No Are you having any other symptoms that your PCP needs to know about? No Symptom Escalation The patient required an escalation for symptom(s)? No Medications Do you have any questions about taking your medication or which medications you should be on? No Do you need any medication refills at this time, including any of the medications you might take only when needed? No Social We would like to make sure you have what you need so that your basic needs are met- including your personal safety, food, housing and medications? Would you like to speak with a social work security team lead to help give you support for any of these needs? No It can be normal to feel anxious or down during a time like this. Would you like to talk to a mental health professional about how you have been feeling? No Closing Thank you for taking the time to talk with me today. We want to work with you to ensure that we are keeping your medical condition(s) well-controlled and to keep you healthy and out of the doctor's office or hospital. It?s also not too late for me to sign you up for automated weekly questionnaires through [employer]. This is an easy way for us to stay connected each week. Are you interested? No, I understand. We can always sign you up in the future if you change your mind. Just as a reminder, will continue to call you every other week to check in on your health. Our calls should take 10-15 minutes or less. Remember, if you have concerns in between our calls, please call your PCP's office right away. Thank you. Enter next patient outreach date for two weeks on the same day of the week as today in the Track Pt Outreach and End outreach. Allergies As of Date: 06/30/2021 Noted Allergy Reaction AMOXICILLIN-POT CLAVULANATE 07/26/2015 6 - Diarrhea CEFDINIR 01/19/2017 6 - Diarrhea [id number] REDUCTASE INHIBIT*07/26/2015 14 - Other: See Comments Comments: Body aches Date Reviewed: 05/21/2019 Reviewed by: Layla Gorman MA - Fully Assessed Reason for Visit: community monitoring outreach [Other] Cmt: checkin Prescriptions as of 06/30/2021 - losartan (COZAAR) 100 mg tablet Take 1 tablet by mouth once daily. - Hydrochlorothiazide 12.5 mg capsule Take 1 capsule by mouth once daily. - diltiazem CR (TIAZAC, TAZTIA XT) 180 mg 24 hr capsule Take 1 capsule by mouth once daily. - zoster vaccine, recombinant, adjuvanted, (SHINGRIX) 50 mcg/0.5 mL injection 0.5ml IM at month 0 and then in 2-6 months - COMPOUNDED PRESCRIPTION 3 LPM O2 via nasal cannula with any sleep. Assoc DX: G47.34, J43.2. - loratadine (CLARITIN) 10 mg tablet Take 10 mg by mouth as needed. - Aspirin 81 mg Tab Take 81 mg by mouth once daily. Problem List As Of Date 06/30/2021 Noted Resolved Hyperlipidemia [E78.5] 04/28/2013 HTN (hypertension) [I10] 05/12/2014 Pancreatitis [K85.90] 02/27/2015 04/05/2017 Brain aneurysm [I67.1] 09/19/2016 UTI (urinary tract infection) [N39.0] 09/19/2016 04/05/2017 COPD (chronic obstructive pulmonary disease) (H*04/05/2017 Vertigo [R42] 08/23/2017 Closed fracture of left hip with routine healin*03/23/2018 Hip fracture, left (HCC) [S72.002A] 03/23/2018 03/26/2018 Hypokalemia [E87.6] 03/24/2018 03/26/2018 Debility [R53.81] 03/26/2018 Constipation [K59.00] 03/27/2018 Hypoxia [R09.02] 03/27/2018 Nocturnal hypoxia [G47.34] 03/27/2018 Aftercare [Z51.89] 03/27/2018 Encounter Status:Closed by BONNIE MACIEL on 06/30/21 [facility] 06-30-2021 Note HNO ID: [id number] Author: Bonnie Maciel RN Service: ? Author Type: Registered Nurse Type: Progress Notes Filed: 06/30/2021 11:00 AM Note Text: [facility] TELEPHONIC OUTREACH Provider Action/FYI: Denies any new or worsening symptoms. Reports doing well overall. Appreciated call. Contact made with patient: Yes Patient identified by name and . Discussed care with patient It?s nice talking to you again. As a reminder, this is our bi-weekly check-in where I will be asking you questions about your health. This will only take a few minutes of your time. Is this a good time? Yes Symptoms What Chronic Disease(s) does the patient have: COPD Do you check your blood pressures at home? Yes, Enter readings: reports stable-130/80's Do you have new or worse shortness of breath with activity? No Do you have new or worsening cough? No Do you have new or worsening wheezing? No Do you need to use your rescue (Albuterol) inhaler or nebulizer more often than normal? No Are you having any other symptoms that your PCP needs to know about? No Symptom Escalation The patient required an escalation for symptom(s)? No Medications Do you have any questions about taking your medication or which medications you should be on? No Do you need any medication refills at this time, including any of the medications you might take only when needed? No Social We would like to make sure you have what you need so that your basic needs are met- including your personal safety, food, housing and medications? Would you like to speak with a social work security team lead to help give you support for any of these needs? No It can be normal to feel anxious or down during a time like this. Would you like to talk to a mental health professional about how you have been feeling? No Closing Thank you for taking the time to talk with me today. We want to work with you to ensure that we are keeping your medical condition(s) well-controlled and to keep you healthy and out of the doctor's office or hospital. It?s also not too late for me to sign you up for automated weekly questionnaires through [employer]. This is an easy way for us to stay connected each week. Are you interested? No, I understand. We can always sign you up in the future if you change your mind. Just as a reminder, will continue to call you every other week to check in on your health. Our calls should take 10-15 minutes or less. Remember, if you have concerns in between our calls, please call your PCP's office right away. Thank you. Enter next patient outreach date for two weeks on the same day of the week as today in the Track Pt Outreach and End outreach. [facility] 06-15-2021 Note HNO ID: [id number] Author: Bonnie Maciel RN Service: ? Author Type: Registered Nurse Type: Progress Notes Filed: 06/15/2021 3:36 PM Note Text: [facility] TELEPHONIC OUTREACH Provider Action/FYI: Denies any new or worsening symptoms. Appreciated call. Contact made with patient: Yes Patient identified by name and . Discussed care with patient It?s nice talking to you again. As a reminder, this is our bi-weekly check-in where I will be asking you questions about your health. This will only take a few minutes of your time. Is this a good time? Yes Symptoms What Chronic Disease(s) does the patient have: COPD Do you check your blood pressures at home? Yes, Enter readings: continue to be stable Do you have new or worse shortness of breath with activity? No Do you have new or worsening cough? No Do you have new or worsening wheezing? No Do you need to use your rescue (Albuterol) inhaler or nebulizer more often than normal? No Are you having any other symptoms that your PCP needs to know about? No Symptom Escalation The patient required an escalation for symptom(s)? No Medications Do you have any questions about taking your medication or which medications you should be on? No Do you need any medication refills at this time, including any of the medications you might take only when needed? No Social We would like to make sure you have what you need so that your basic needs are met- including your personal safety, food, housing and medications? Would you like to speak with a social work security team lead to help give you support for any of these needs? No It can be normal to feel anxious or down during a time like this. Would you like to talk to a mental health professional about how you have been feeling? No Closing Thank you for taking the time to talk with me today. We want to work with you to ensure that we are keeping your medical condition(s) well-controlled and to keep you healthy and out of the doctor's office or hospital. It?s also not too late for me to sign you up for automated weekly questionnaires through [employer]. This is an easy way for us to stay connected each week. Are you interested? No, I understand. We can always sign you up in the future if you change your mind. Just as a reminder, will continue to call you every other week to check in on your health. Our calls should take 10-15 minutes or less. Remember, if you have concerns in between our calls, please call your PCP's office right away. Thank you. Enter next patient outreach date for two weeks on the same day of the week as today in the Track Pt Outreach and End outreach. [facility] 06-02-2021 Note HNO ID: [id number] Author: Bonnie Maciel RN Service: ? Author Type: Registered Nurse Type: Progress Notes Filed: 06/02/2021 12:42 PM Note Text: [employer] [facility] TELEPHONIC OUTREACH Provider Action/FYI: Another attempt. Left Vm. Contact made with patient: No - Left message - Hello my name is Bonnie stock Getter Filler from the [facility] I am calling today for your bi-weekly check in. I am sorry I missed your call. I will reach out to you again tomorrow. (if the third call I will reach out to you again next week) Enter next patient outreach date for the following business day using the Track Pt Outreach. End outreach. [facility] 06-01-2021 Note Patient Outreach ([facility]) [place] REEDER ([id number]) 1935 F Date Time Provider Department [facility]/01[facility] [place] your visit today, we recorded the following information about you: Bonnie Maciel RN 06/01/2021 11:40 AM Signed [employer] TELEPHONIC OUTREACH Provider Action/FYI: Left VM. Contact made with patient: No - Left message - Hello my name is Bonnie stock Getter Filler from the [facility] I am calling today for your bi-weekly check in. I am sorry I missed your call. I will reach out to you again tomorrow. (if the third call I will reach out to you again next week) Enter next patient outreach date for the following business day using the Track Pt Outreach. End outreach. Bonnie Maciel RN 06/02/2021 12:42 PM Signed [employer] [facility] TELEPHONIC OUTREACH Provider Action/FYI: Another attempt. Left Vm. Contact made with patient: No - Left message - Robbie my name is Bonnie stock Getter Filler from the [facility] I am calling today for your bi-weekly check in. I am sorry I missed your call. I will reach out to you again tomorrow. (if the third call I will reach out to you again next week) Enter next patient outreach date for the following using the Track Pt Outreach. End outreach. Bonnie Maciel RN 06/15/2021 3:36 PM Signed [facility] TELEPHONIC OUTREACH Provider Action/FYI: Denies any new or worsening symptoms. Appreciated call. Contact made with patient: Yes Patient identified by name and . Discussed care with patient It?s nice talking to you again. As a reminder, this is our bi-weekly check-in where I will be asking you questions about your health. This will only take a few minutes of your time. Is this a good time? Yes Symptoms What Chronic Disease(s) does the patient have: COPD Do you check your blood pressures at home? Yes, Enter readings: continue to be stable Do you have new or worse shortness of breath with activity? No Do you have new or worsening cough? No Do you have new or worsening wheezing? No Do you need to use your rescue (Albuterol) inhaler or nebulizer more often than normal? No Are you having any other symptoms that your PCP needs to know about? No Symptom Escalation The patient required an escalation for symptom(s)? No Medications Do you have any questions about taking your medication or which medications you should be on? No Do you need any medication refills at this time, including any of the medications you might take only when needed? No Social We would like to make sure you have what you need so that your basic needs are met- including your personal safety, food, housing and medications? Would you like to speak with a social work security team lead to help give you support for any of these needs? No It can be normal to feel anxious or down during a time like this. Would you like to talk to a mental health professional about how you have been feeling? No Closing Thank you for taking the time to talk with me today. We want to work with you to ensure that we are keeping your medical condition(s) well-controlled and to keep you healthy and out of the doctor's office or hospital. It?s also not too late for me to sign you up for automated weekly questionnaires through [employer]. This is an easy way for us to stay connected each week. Are you interested? No, I understand. We can always sign you up in the future if you change your mind. Just as a reminder, will continue to call you every other week to check in on your health. Our calls should take 10-15 minutes or less. Remember, if you have concerns in between our calls, please call your PCP's office right away. Thank you. Enter next patient outreach date for two weeks on the same day of the week as today in the Track Pt Outreach and End outreach. Allergies As of Date: 06/01/2021 Noted Allergy Reaction AMOXICILLIN-POT CLAVULANATE 07/26/2015 6 - Diarrhea CEFDINIR 01/19/2017 6 - Diarrhea [id number] REDUCTASE INHIBIT*07/26/2015 14 - Other: See Comments Comments: Body aches Date Reviewed: 05/21/2019 Reviewed by: Layla Gorman MA - Fully Assessed Reason for Visit: community monitoring outreach [Other] Cmt: checkin Prescriptions as of 06/15/2021 - losartan (COZAAR) 100 mg tablet Take 1 tablet by mouth once daily. - Hydrochlorothiazide 12.5 mg capsule Take 1 capsule by mouth once daily. - diltiazem CR (TIAZAC, TAZTIA XT) 180 mg 24 hr capsule Take 1 capsule by mouth once daily. - zoster vaccine, recombinant, adjuvanted, (SHINGRIX) 50 mcg/0.5 mL injection 0.5ml IM at month 0 and then in 2-6 months - COMPOUNDED PRESCRIPTION 3 LPM O2 via nasal cannula with any sleep. Assoc DX: G47.34, J43.2. - loratadine (CLARITIN) 10 mg tablet Take 10 mg by mouth as needed. - Aspirin 81 mg Tab Take 81 mg by mouth once daily. Problem List As O (more content not included)... [facility] 06-01-2021 Note HNO ID: [id number] Author: Bonnie Maciel RN Service: ? Author Type: Registered Nurse Type: Progress Notes Filed: 06/01/2021 11:40 AM Note Text: [facility] TELEPHONIC OUTREACH Provider Action/FYI: Left VM. Contact made with patient: No - Left message - Robbie my name is Bonnie montrell Getter Filler from the [facility] I am calling today for your bi-weekly check in. I am sorry I missed your call. I will reach out to you again tomorrow. (if the third call I will reach out to you again next week) Enter next patient outreach date for the following day using the Track Pt Outreach. End outreach. [facility] 05-16-2021 Note HNO ID: [id number] Author: Bonnie Maciel RN Service: ? Author Type: Registered Nurse Type: Progress Notes Filed: 05/16/2021 11:21 AM Note Text: [facility] TELEPHONIC OUTREACH Provider Action/FYI: Doing well overall. Denies any new or worsening symptoms. BP stable. Appreciated call. Contact made with patient: Yes Patient identified by name and . Discussed care with patient It?s nice talking to you again. As a reminder, this is our bi-weekly check-in where I will be asking you questions about your health. This will only take a few minutes of your time. Is this a good time? Yes Symptoms What Chronic Disease(s) does the patient have: COPD Do you check your blood pressures at home? Yes, Enter readings: range 120-130/70-80's Do you have new or worse shortness of breath with activity? No Do you have new or worsening cough? No Do you have new or worsening wheezing? No Do you need to use your rescue (Albuterol) inhaler or nebulizer more often than normal? No Are you having any other symptoms that your PCP needs to know about? No Symptom Escalation The patient required an escalation for symptom(s)? No Medications Do you have any questions about taking your medication or which medications you should be on? No Do you need any medication refills at this time, including any of the medications you might take only when needed? No Social We would like to make sure you have what you need so that your basic needs are met- including your personal safety, food, housing and medications? Would you like to speak with a social work security team lead to help give you support for any of these needs? No It can be normal to feel anxious or down during a time like this. Would you like to talk to a mental health professional about how you have been feeling? No Closing Thank you for taking the time to talk with me today. We want to work with you to ensure that we are keeping your medical condition(s) well-controlled and to keep you healthy and out of the doctor's office or hospital. It?s also not too late for me to sign you up for automated weekly questionnaires through [employer]. This is an easy way for us to stay connected each week. Are you interested? No, I understand. We can always sign you up in the future if you change your mind. Just as a reminder, will continue to call you every other week to check in on your health. Our calls should take 10-15 minutes or less. Remember, if you have concerns in between our calls, please call your PCP's office right away. Thank you. Enter next patient outreach date for two weeks on the same day of the week as today in the Track Pt Outreach and End outreach. [facility] 05-12-2021 Note HNO ID: [id number] Author: Bonnie Maciel RN Service: ? Author Type: Registered Nurse Type: Progress Notes Filed: 05/12/2021 2:39 PM Note Text: [facility] TELEPHONIC OUTREACH Provider Action/FYI: Left VM. Contact made with patient: No - Left message - Robbie my name is Bonnie stock Getter Filler from the [facility] I am calling today for your bi-weekly check in. I am sorry I missed your call. I will reach out to you again tomorrow. (if the third call I will reach out to you again next week) Enter next patient outreach date for the following using the Track Pt Outreach. End outreach. [facility] 05-12-2021 Note Patient Outreach ([facility] [place] [place] REEDER ([id number]) 1935 F Date Time Provider Department 05/12/21 RM, BONNIE [facility] During your visit today, we recorded the following information about you: Bonnie Maciel RN 05/12/2021 2:39 PM Signed [facility] TELEPHONIC OUTREACH Provider Action/FYI: Left VM. Contact made with patient: No - Left message - Robbie my name is Bonnie your Getter Filler from the [facility] I am calling today for your bi-weekly check in. I am sorry I missed your call. I will reach out to you again tomorrow. (if the third call I will reach out to you again next week) Enter next patient outreach date for the following day using the Track Pt Outreach. End outreach. Bonnie Maciel RN 05/16/2021 11:21 AM Signed [facility] TELEPHONIC OUTREACH Provider Action/FYI: Doing well overall. Denies any new or worsening symptoms. BP stable. Appreciated call. Contact made with patient: Yes Patient identified by name and . Discussed care with patient It?s nice talking to you again. As a reminder, this is our bi-weekly check-in where I will be asking you questions about your health. This will only take a few minutes of your time. Is this a good time? Yes Symptoms What Chronic Disease(s) does the patient have: COPD Do you check your blood pressures at home? Yes, Enter readings: range 120-130/70-80's Do you have new or worse shortness of breath with activity? No Do you have new or worsening cough? No Do you have new or worsening wheezing? No Do you need to use your rescue (Albuterol) inhaler or nebulizer more often than normal? No Are you having any other symptoms that your PCP needs to know about? No Symptom Escalation The patient required an escalation for symptom(s)? No Medications Do you have any questions about taking your medication or which medications you should be on? No Do you need any medication refills at this time, including any of the medications you might take only when needed? No Social We would like to make sure you have what you need so that your basic needs are met- including your personal safety, food, housing and medications? Would you like to speak with a social work security team lead to help give you support for any of these needs? No It can be normal to feel anxious or down during a time like this. Would you like to talk to a mental health professional about how you have been feeling? No Closing Thank you for taking the time to talk with me today. We want to work with you to ensure that we are keeping your medical condition(s) well-controlled and to keep you healthy and out of the doctor's office or hospital. It?s also not too late for me to sign you up for automated weekly questionnaires through [employer]. This is an easy way for us to stay connected each week. Are you interested? No, I understand. We can always sign you up in the future if you change your mind. Just as a reminder, will continue to call you every other week to check in on your health. Our calls should take 10-15 minutes or less. Remember, if you have concerns in between our calls, please call your PCP's office right away. Thank you. Enter next patient outreach date for two weeks on the same day of the week as today in the Track Pt Outreach and End outreach. Allergies As of Date: 05/12/2021 Noted Allergy Reaction AMOXICILLIN-POT CLAVULANATE 07/26/2015 6 - Diarrhea CEFDINIR 01/19/2017 6 - Diarrhea [id number] REDUCTASE INHIBIT*07/26/2015 14 - Other: See Comments Comments: Body aches Date Reviewed: 05/21/2019 Reviewed by: Layla Gorman MA - Fully Assessed Reason for Visit: community monitoring outreach [Other] Cmt: checkin Prescriptions as of 05/12/2021 Sig: LOSARTAN 100 MG TABLET Take 1 tablet by mouth once d* HYDROCHLOROTHIAZIDE 12.5 MG C* Take 1 capsule by mouth once * DILTIAZEM CR 180 MG CAP Take 1 capsule by mouth once * VARICELLA-ZOSTER GLYCOE VACC-* 0.5ml IM at month 0 and then * COMPOUNDED PRESCRIPTION 3 LPM O2 via nasal cannula wi* LORATADINE 10 MG TABLET Take 10 mg by mouth as needed. ASPIRIN 81 MG TABLET Take 81 mg by mouth once sasha* Problem List As Of Date 05/12/2021 Noted Resolved Hyperlipidemia [E78.5] 04/28/2013 HTN (hypertension) [I10] 05/12/2014 Pancreatitis [K85.90] 02/27/2015 04/05/2017 Brain aneurysm [I67.1] 09/19/2016 UTI (urinary tract infection) [N39.0] 09/19/2016 04/05/2017 COPD (chronic obstructive pulmonary disease) (H*04/05/2017 Vertigo [R42] 08/23/2017 Closed fracture of left hip with routine healin*03/23/2018 Hip fracture, left (HCC) [S72.002A] 03/23/2018 03/26/2018 Hypokalemia [E87.6] 03/24/2018 03/26/2018 Debility [R53.81] 03/26/2018 Constipation [K59.00] 03/27/2018 Hypoxia [R09.02] 03/27/2018 Nocturnal hypoxia [G47.34] 03/27/2018 Aftercare [Z51.89] 03/27/2018 (more content not included)... [facility] 04-28-2021 Note HNO ID: [id number] Author: Bonnie Maciel RN Service: ? Author Type: Registered Nurse Type: Progress Notes Filed: 04/28/2021 4:20 PM Note Text: [facility] CDM Enrollment Provider Action/FYI: Enrolled in program telephonically. Patient referred by: [facility] Al[place] Contact made with patient: Yes - Patient identified by name and . Discussed care with patient Robbie this is Bonnie Maciel RN and I am calling from Bill Noble MD office at the [facility]. I am a RN Getter Filler with our [facility] Chronic Disease Management program. Bill Noble MD wanted me to reach out to help you manage your health at home. Our goal is to keep you well at home. We want to help you manage your chronic disease by providing a safety net of resources around you, getting you the care you need in a timely manner, and hopefully keep you out of the ED and hospital. I will send you a few questions once a week through your [employer] account. It will automatically show up for you to complete. There are simple questions that will help us identify if you have any concerns or symptoms and I will call you to help get what you need. We will be able to connect you, review your symptoms, do an on demand visit, or communicate with Bill Noble MD if needed. I am going to sign you up for the program now. Enrollment Questions: Let's get you enrolled in the program. Yes, Do you have regular access to a computer/smartphone? Yes. Goal Setting: I would like to take some time today to discuss your personal health goals. Yes, patient has goals. Capture the goal the patient wants to accomplish: Continue to do well overall and live with back pain. Does the goal align with programs offered at the [facility]? No Patient accepts telephonic outreach Thank you for your time today. I am excited to work together in managing your health! I will check back within in two weeks to see how things are going. If questions or concerns arise between phone calls, please reach out to your PCP?s office. (Place in active status for [facility] and place name in care team and update next patient outreach data to next business day two weeks from today?s date) Most people know what to do to become healthier, yet struggle to put it into action on their own.It can be hard to maintain a healthy lifestyle, especially when life is so stressful. Can we connect you with a [facility] Health Analysis Mgr to find a program that could help you meet your goals? No Closing: Patient accepts telephonic outreach Thank you for your time today. I am excited to work together in managing your health! I will check back within in two weeks to see how things are going. If questions or concerns arise between phone calls, please reach out to your PCP?s office. (Place in active status for [facility] and place name in care team and update next patient outreach data to next business day two weeks from today?s date) [facility] 04-28-2021 Note Patient Outreach (AM BC) MI REEDER ([id number]) 1935 F Date Time Provider Department 04/28/21 BONNIE MACIEL During your visit today, we recorded the following information about you: Bonnie Maciel RN 04/28/2021 4:20 PM Signed [facility] CDM Enrollment Provider Action/FYI: Enrolled in program telephonically. Patient referred by: [facility] Alona Contact made with patient: Yes - Patient identified by name and . Discussed care with patient Robbie this is Bonnie Maciel RN and I am calling from Bill Noble MD office at the [facility]. I am a RN Getter Filler with our [facility] Chronic Disease Management program. Bill Noble MD wanted me to reach out to help you manage your health at home. Our goal is to keep you well at home. We want to help you manage your chronic disease by providing a safety net of resources around you, getting you the care you need in a timely manner, and hopefully keep you out of the ED and hospital. I will send you a few questions once a week through your [employer] account. It will automatically show up for you to complete. There are simple questions that will help us identify if you have any concerns or symptoms and I will call you to help get what you need. We will be able to connect you, review your symptoms, do an on demand visit, or communicate with Bill Noble MD if needed. I am going to sign you up for the program now. Enrollment Questions: Let's get you enrolled in the program. Yes, Do you have regular access to a computer/smartphone? Yes. Goal Setting: I would like to take some time today to discuss your personal health goals. Yes, patient has goals. Capture the goal the patient wants to accomplish: Continue to do well overall and live with back pain. Does the goal align with programs offered at the [facility]? No Patient accepts telephonic outreach Thank you for your time today. I am excited to work together in managing your health! I will check back within in two weeks to see how things are going. If questions or concerns arise between phone calls, please reach out to your PCP?s office. (Place in active status for [facility] and place name in care team and update next patient outreach data to next business day two weeks from today?s date) Most people know what to do to become healthier, yet struggle to put it into action on their own.It can be hard to maintain a healthy lifestyle, especially when life is so stressful. Can we connect you with a [facility] Health Analysis Mgr to find a program that could help you meet your goals? No Closing: Patient accepts telephonic outreach Thank you for your time today. I am excited to work together in managing your health! I will check back within in two weeks to see how things are going. If questions or concerns arise between phone calls, please reach out to your PCP?s office. (Place in active status for [facility] and place name in care team and update next patient outreach data to next business day two weeks from today?s date) Allergies As of Date: 04/28/2021 Noted Allergy Reaction AMOXICILLIN-POT CLAVULANATE 07/26/2015 6 - Diarrhea CEFDINIR 01/19/2017 6 - Diarrhea ORYDCQM-GLU-MOO REDUCTASE INHIBIT*07/26/2015 14 - Other: See Comments Comments: Body aches Date Reviewed: 05/21/2019 Reviewed by: Layla Gorman MA - Fully Assessed Reason for Visit: community monitoring outreach [Other] Cmt: enrollment Primary Visit Diagnosis:Centrilobular emphysema (HCC) [J43.2] Order(s):CONSULT TO PRIMARY CARE COORDINATION CD [[id number]] Order #: [id number]: 1 Prescriptions as of 04/28/2021 Sig: LOSARTAN 100 MG TABLET Take 1 tablet by mouth once d* HYDROCHLOROTHIAZIDE 12.5 MG C* Take 1 capsule by mouth once * DILTIAZEM CR 180 MG CAP Take 1 capsule by mouth once * VARICELLA-ZOSTER GLYCOE VACC-* 0.5ml IM at month 0 and then * COMPOUNDED PRESCRIPTION 3 LPM O2 via nasal cannula wi* LORATADINE 10 MG TABLET Take 10 mg by mouth as needed. ASPIRIN 81 MG TABLET Take 81 mg by mouth once sasha* Problem List As Of Date 04/28/2021 Noted Resolved Hyperlipidemia [E78.5] 04/28/2013 HTN (hypertension) [I10] 05/12/2014 Pancreatitis [K85.90] 02/27/2015 04/05/2017 Brain aneurysm [I67.1] 09/19/2016 UTI (urinary tract infection) [N39.0] 09/19/2016 04/05/2017 COPD (chronic obstructive pulmonary disease) (H*04/05/2017 Vertigo [R42] 08/23/2017 Closed fracture of left hip with routine healin*03/23/2018 Hip fracture, left (HCC) [S72.002A] 03/23/2018 03/26/2018 Hypokalemia [E87.6] 03/24/2018 03/26/2018 Debility [R53.81] 03/26/2018 Constipation [K59.00] 03/27/2018 Hypoxia [R09.02] 03/27/2018 Nocturnal hypoxia [G47.34] 03/27/2018 Aftercare [Z51.89] 03/27/2018 Encounter Status:Closed by BONNIE MACIEL on 04/28/21 [facility] documented as of this encounter (statuses as of 03/25/2022) [facility] Pain in left hip Pain in joint, pelvic region and thigh documented in this encounter [facility] for referral (narrative)* Diagnostic Procedure Only (Routine) - Closed Specialty Diagnoses / Procedures Referred By Contac t Referred To Contact XR IMAGING Diagnoses Pain in left hip Procedures XR HIP 2V AP/LAT LEFT ([place]) RADEX HIP UNILATERAL WITH PELVIS 2-3 VIEWS Carlos Torres PA-C [address] [place] [address] Xr Imaging Referral ID Status Reason Start Date Expiration Date V isits Requested Visits Authorized [id number] Closed Auto-Generate d Referral 03/03/2022 04/01/2023 1 1 [facility] for visit Narrative* Diagnostic Procedure Only (Routine) - Closed Specialty Diagnoses / Procedures Referred By Contac t Referred To Contact XR IMAGING Diagnoses Pain in left hip Procedures XR HIP 2V AP/LAT LEFT ([place]) RADEX HIP UNILATERAL WITH PELVIS 2-3 VIEWS Carlos Torres PA-C [address] [place] [address] Xr Imaging Referral ID Status Reason Start Date Expiration Date V isits Requested Visits Authorized [id number] Closed Auto-Generate d Referral 03/03/2022 04/01/2023 1 1 [facility] Advance Directives No Advanced Directives Records FoundDocuments on File Type Date 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 Advance Directive(s) 05/19/2019 1:42 PM Advance Directive(s) 03/22/2018 10:11 PM Advance Directive(s) 09/19/2016 2:25 PM Summary Purpose Family History No Family History Records FoundNo Family History Records Found Additional Source Comments Source Comments (unrecognize d section and content) In the event this informatio n is protected by the Federal Confidentiality of Alcohol and Drug Abuse Patient Records regulations: The Federal rules restrict any use of the information to criminally investigate or prosecute any alcohol or drug abuse patient.[facility] Care Teams (unrecognized sec tion and content) INFORMATION SOURCE (unrecogn ized section and content) DATE CREATED AUTHOR AUTHOR'S MARGARET ATION 04/04/2022 [facility] FOR RECORDS PERTAINING TO PATIENTS WHO ARE OR HAVE BEEN ENROLLED IN A CHEMICAL DEPENDENCY/SUBSTANCEABUSE PROGRAM, SOME INFORMATION MAY BE OMITTED. This clinical summary was aggregated from multiple sources. Caution should be exercised in using it in the provision of clinical care. This summary normalizes information from multiple sources, and as a consequence, information in this document may materially change the coding, format and clinical context of patient data. In addition, data may be omitted in some cases. CLINICAL DECISIONS SHOULD BE BASED ON THE PRIMARY CLINICAL RECORDS. [facility] [facility]. provides no warranty or guarantee of the accuracy or completeness of information in this document.
[2023-12-04 21:38] LABS: Absolute Lymphocyte Count 0.92 X10^3/uL (0.83-4.51); Absolute Neutrophil Count 6.2 X10^3/uL (2.0-7.7); Basophil# 0.01 X10^3/uL; Basophil% 0.1 % (0-1); Eosinophil# 0.04 X10^3/uL; Eosinophils% 0.5 % (0-5); Hematocrit 44.3 % (37-47); Hemoglobin 14.9 g/dL (12.0-15.0); Lymphocyte # 0.92 X10^3/ul (0.83-4.51); Lymphocyte % 10.7 % (19-41); Mean Corp Hgb Conc 33.6 g/dL (32-36); Mean Corpuscular Hgb 31.2 pg (27.0-32.0); Mean Corpuscular Volume 92.9 fL (81-99); Mean Platelet Vol. 11.9 fl (6.2-12.0); Monocyte% 16.3 % (0-10); NRBC Flagged by Analyzer 0 % (0-5); Neutrophil % 72.3 % (47-70); Platelet Count 206 K/mm3 (150-450); RBC Distribution Width CV 12.7 % (11.6-14.6); RBC Distribution Width SD 43.6 fl (35.1-43.9); Red Blood Count 4.77 M/mm3 (4.2-5.4); White Blood Count 8.6 K/mm3 (4.4-11.0)
[2023-12-04 21:54] LABS: ALB/GLOB Ratio 1.2 RATIO (0.9-2.4); AST(SGOT) 15 U/L (15-37); Alanine Aminotransfer ALT/SGPT 20 U/L (13-56); Albumin, Serum 3.7 g/dL (3.2-5.0); Alkaline Phosphatase 73 U/L (45-117); Anion Gap 5 (5-15); BUN 11 mg/dL (7-18); BUN/Creat Ratio 13.3 RATIO (10-20); Calcium,Total 8.9 mg/dL (8.5-10.1); Chloride 109 mmol/L (98-107); Creatinine, Serum 0.83 mg/dL (0.55-1.02); EST Glomerular Filtration Rate 69 mL/min (>60); Est Glom Filt Rate - Afr Amer 84 mL/min (>60); Globulin 3.1 g/dL (2.2-4.2); Glucose 105 mg/dL (74-106); Potassium 3.7 mmol/L (3.5-5.1); Protein, Total 6.8 g/dL (6.4-8.2); Sodium Level 141 mmol/L (136-145)
== END | disposition home or self-care (01) ==
PROVIDERS: PCP Nurse Practitioner; Visit Provider Nurse Practitioner
DX: I10 Essential (primary) hypertension (principal); R42 Dizziness and giddiness
CPT/HCPCS: 80053; 85025

== ENCOUNTER → 2024-01-01 | Outpatient (CLI) | payer MEDICARE, SELFPAY ==
--- OUTSIDE RECORDS SUMMARY | 2024-01-01 20:46 | XMS RPT_ITS | CCD ---
Author Name Unknown Address [address] [place] [address] Organization [facility] Care Team Providers Care Arts Administrator Or Manager Name Role Phone Agustin Anguiano Unavailable Michael CRISOSTOMO.Yumiko ORDAZ Primary Care Provide Allergies Allergy Classification Reported Allergen(s) Allergy Type Date of Onset Reaction(s) Facility (1 source) Amoxicillin / Clavulanate Drug Allergy 07-26-2015 Diarrhea [facility] (1 source) cefdinir Drug Allergy 01-19-2017 Diarrhea [facility] (1 source) HMG-CoA reductase inhibitor Drug Allergy 07-26-2015 Other: See Comments [facility] Medications Completed/Discontinued Medications Medication Drug Class(es) Dates [...] microalbumin profile DTAP,TDAP ,TD (2 - Tdap) [facility] Start: 07-27-2022 Influenza vaccination INFLUENZA (Sea son Ended) [facility] Start: 04-02-2022 DIABETES SCREEN DIABETES SCREEN [facility] Start: 11-26-2021 ADVANCE DIRECTIVE DISCUSSION ADVANCE DIRECTIVE DISCUSSION [facility] Start: 08-28-2021 COVID-19 VACCINE (3 - Booster for Moderna series) COVID-19 VACCINE (3 - Booster for Moderna series) [facility] Start: 02-12-2014 SHINGRIX VACCINE (2 of 3) FLANNERY GRIX VACCINE (2 of 3) [facility] Immunizations Immunization Date Immunization Notes Care Provider Cain leonardo 09-02-2019 influenza, high dose seasonal, preservative-free [employer] Work Phone: [facility] 08-27-2019 influenza, injectabl e, quadrivalent, contains preservative [employer] Work Phone: [facility] 05-21-2019 zoster vaccine, recombinant, adjuvanted, (SHINGRIX) 50 mcg/0.5 mL injection [employer] Work Phone: [facility] Work Phone: Payers Date Payer Category Payer Unknown [employer] SUPPLEMENT [id number] 2015-Present [phone] [address] [place] [address] Indemnity [id number] 2003 Medicare MEDICARE MEDICAR E A AND B [id number] 2003-Present [phone] [address] [address] [place] [address] Medicare [id number] Social History Date Type Detail Facility Start: 11-01-2012 [facility] Work Phone: Start: 03-12-1953 End: 05-12-2006 History of tobacco use Current smoker [facility] Work Phone: Start: 03-12-1953 End: 05-12-2006 History of tobacco use Cigarette Smoker [facility] Work Phone: Start: 11-01-2012 Cigarettes smoked current (pack per day) - Reported 1 [facility] Start: 11-01-2012 Tobacco use and exposure Smokeless tobacco non-user [facility] Work Phone: Start: 10-13-2019 Alcohol intake Current non-dr ingredient mixer of alcohol (finding) [facility] Start: 1935 Sex Assigned At Not on file [facility] Start: 03-14-2022 End: 03-24-2022 Exposure to SARS-CoV-2 (event) Not sure [facility] Medical Equipment Procedure Code Equipment Code Equipment Origin al Text Equipment Identifier Dates Cement Simplex P Bone Radiopaque Full Dose Sterile - [id number] Start: 03-24-2018 Cement Simplex P Bone Radiopaque Full Dose Sterile - [id number] Start: 03-24-2018 Shell 48mm C Hemispherical Tritanium Acetabular Primary Rim Cluster Hole - [id number] Start: 03-24-2018 Liner Mdm 36mm C Cocr Acetabular 2 Mobility Modular Hip - [id number] Start: 03-24-2018 Stem Accolade 12 7d 6 49mm Offset 158mm 37mm Femoral Cemented Neck Hip - [id number] Start: 03-24-2018 Insert Mobile Be aring Hip X3 Acetabular Anatomic Dual Mobility Modular 22.2 - [id number] Start: 03-24-2018 Head V40 Lfit 22 mm +0mm Offset Taper Cocr Femoral Primary Hip - [id number] Start: 03-24-2018 Spacer Accolade C 14mm Large Femoral Ring Style Cemented 6 7 Stem Hip - [id number] Start: 03-24-2018 Goals Date Patient Goal Desired Activity /State Clinical Notes 03-24-2018 to 04-03-2022 BOZENA Thurman - 03/24/2022 12:45 PM EDT Note Date & Type Note Facility 04-03-2022 Note HNO ID: [id number] Author: Osvaldo Hubbard MD Service: ? Author [...] Impression: IMPRESSION: Stable LEFT total hip arthroplasty Supervisor Paper Products: [employer] Transcribe Date/Time: Mar 24 2022 2:13P [...] for repeat clinical/radiographic evaluation Osvaldo Hubbard MD [facility] 03-24-2022 Note HNO ID: [id number] Author: BOZENA Thurman Service: Radiology Author Type: [...] BOZENA Thurman March 24, 2022 1:06 PM [facility] 03-24-2022 History of Present illness Narrative Radiology [...] 2022 1:06 PM documented in this encounter [facility] 08-03-2021 Note Patient Outreach (FA [facility]) [place] REEDER ([id number]) 1935 F Date Time Provider Department 08/03/21 [...] santana name is Reema Rome RN your Forming Machine Upkeep Mechanic from Yumiko Rodriguez APRN.CNP office at the [facility]. I am reaching out today because I [...] see Dr. Noble anymore. Reema Rome RN Supervisor [employer] [phone] Allergies As of Date: 08/03/2021 Noted Allergy Reaction AMOXICILLIN-POT CLAVULANATE 07/26/2015 6 - Diarrhea CEFDINIR 01/19/2017 6 - Diarrhea NEGVTDQ-[id number]-[id number] REDUCTASE INHIBIT*07/26/2015 14 - Other: See Comments [...] Encounter Status:Closed by REEMA ROME on 08/03/21 [facility] 08-03-2021 Note HNO ID: [id number] Author: Reema Rome RN Service: ? Author Type: Registered Nurse Type: Progress Notes Filed: 08/03/2021 9:58 AM Note Text: [facility] CDM Engagement Provider Action/FYI: Patient does not even see Dr. Noble anymore Updated PCP and removed from [facility] program Contact Made with Patient: Yes Patient identified by name and . Discussed care with patient Robbie santana name is Reema Rome RN your Forming Machine Upkeep Mechanic from Yumiko Rodriguez APRN.CNP office at the [facility]. I am reaching out today because I [...] see Dr. Noble anymore. Reema Rome RN Supervisor [employer] [phone] [facility] 07-14-2021 Note HNO ID: [id number] Author: Bonnie Maciel RN Service: ? Author Type: Registered Nurse Type: Progress Notes Filed: 07/14/2021 4:02 PM Note Text: [facility] CD[facility] TELEPHONIC OUTREACH Provider Action/FYI: Denies any [...] like to speak with a social work team automobile assembler to help give you support for any [...] you up for automated weekly questionnaires through [employer] ???. This is an easy way for us [...] the Track Pt Outreach and End outreach. [facility] 07-14-2021 Note Patient Outreach (AM [facility]) [place] REEDER ([id number]) 1935 F Date Time Provider Department 07/14/21 BONNIE MACIEL During your visit today, we recorded the following information about you: Bonnie Maciel RN 07/14/2021 4:02 PM Signed [facility]IGHT [facility] TELEPHONIC OUTREACH Provider Action/FYI: Denies any [...] like to speak with a social work team automobile assembler to help give you support for any [...] you up for automated weekly questionnaires through [employer] ???. This is an easy way for us [...] - Diarrhea CEFDINIR 01/19/2017 6 - Diarrhea EFFPTNM-TFM-ZUH REDUCTASE INHIBIT*07/26/2015 14 - Other: See Comments Comments: Body aches Date Reviewed: 05/21/2019 Reviewed by: Layla Gormna MA - Fully Assessed Reason for Visit: [...] Encounter Status:Closed by BONNIE MACIEL on 07/14/21 [facility] 06-30-2021 Note Patient Outreach (AM [facility]) [place] REEDER ([id number]) 1935 F Date Time Provider Department 06/30/21 BONNIE MACIEL [facility] During your visit today, we recorded the following information about you: Bonnie Maciel RN 06/30/2021 11:[address] [facility] TELEPHONIC OUTREACH Provider Action/FYI: Denies any [...] like to speak with a social work team automobile assembler to help give you support for any [...] you up for automated weekly questionnaires through [employer] ???. This is an easy way for us [...] - Diarrhea CEFDINIR 01/19/2017 6 - Diarrhea QERWDFG-QYA-WDJ REDUCTASE INHIBIT*07/26/2015 14 - Other: See Comments [...] Encounter Status:Closed by BONNIE MACIEL on 06/30/21 [facility] 06-30-2021 Note HNO ID: [id number] Author: Bonnie Maciel RN Service: ? Author [...] like to speak with a social work team automobile assembler to help give you support for any [...] you up for automated weekly questionnaires through [employer] ???. This is an easy way for us [...] the Track Pt Outreach and End outreach. [facility] 06-15-2021 Note HNO ID: [id number] Author: Bonnie Maciel RN Service: ? Author [...] like to speak with a social work team automobile assembler to help give you support for any [...] you up for automated weekly questionnaires through [employer] ???. This is an easy way for us [...] the Track Pt Outreach and End outreach. [facility] 06-02-2021 Note HNO ID: [id number] Author: Bonnie Maciel RN Service: ? Author Type: Registered Nurse Type: Progress Notes Filed: 06/02/2021 12:42 PM Note Text: [facility] TELEPHONIC OUTREACH Provider Action/FYI: Another attempt. Left Vm. Contact made with patient: No - Left message - Hello my name is Bonnie stock Forming Machine Upkeep Mechanic from the [facility] I am calling today for your bi-weekly check in. I am sorry I missed your call. I will reach out to you again tomorrow. (if the third call I will reach out to you again next week) Enter next patient outreach date for the following business day using the Track Pt Outreach. End outreach. [facility] 06-01-2021 Note Patient Outreach (AM [facility]) MI REEDER ([id number]) 1935 F Date Time Provider Department 06/01/21 [facility] your visit today, we recorded the following information about you: Bonnie Maciel RN 06/01/2021 11:40 AM Signed [facility] TELEPHONIC OUTREACH Provider Action/FYI: Left VM. Contact made with patient: No - Left message - Hello my name is Bonnie stock Forming Machine Upkeep Mechanic from the [facility] I am calling today for your bi-weekly check in. I am sorry I missed your call. I will reach out to you again tomorrow. (if the third call I will reach out to you again next week) Enter next patient outreach date for the following business day using the Track Pt Outreach. End outreach. Bonnie Maciel RN 06/02/2021 12:42 PM Signed [facility] TELEPHONIC OUTREACH Provider Action/FYI: Another attempt. Left Vm. Contact made with patient: No - Left message - Robbie my name is Bonnie stock Forming Machine Upkeep Mechanic from the [facility] I am calling today for your bi-weekly check in. I am sorry I missed your call. I will reach out to you again tomorrow. (if the third call I will reach out to you again next week) Enter next patient outreach date for the following using the Track Pt Outreach. End outreach. Bonnie Maciel RN 06/15/2021 3:36 PM Signed RAD[facility] TELEPHONIC OUTREACH Provider Action/FYI: Denies any [...] like to speak with a social work team automobile assembler to help give you support for any [...] you up for automated weekly questionnaires through [employer] ???. This is an easy way for us [...] - Diarrhea CEFDINIR 01/19/2017 6 - Diarrhea LUMZGNM-DEA-TOP REDUCTASE INHIBIT*07/26/2015 14 - Other: See Comments [...] List As O (more content not included)... [facility] 06-01-2021 Note HNO ID: [id number] Author: Bonnie Maciel RN Service: ? Author Type: Registered Nurse Type: Progress Notes Filed: 06/01/2021 11:40 AM Note Text: [facility] CDM TELEPHONIC OUTREACH Provider Action/FYI: Left VM. Contact made with patient: No - Left message - Robbie my name is Bonnie montrell Forming Machine Upkeep Mechanic from the [facility] I am calling today for your bi-weekly check in. I am sorry I missed your call. I will reach out to you again tomorrow. (if the third call I will reach out to you again next week) Enter next patient outreach date for the following day using the Track Pt Outreach. End outreach. [facility] 05-16-2021 Note HNO ID: [id number] Author: Bonnie Maciel RN Service: ? Author [...] like to speak with a social work team automobile assembler to help give you support for any [...] you up for automated weekly questionnaires through [employer] ???. This is an easy way for us [...] the Track Pt Outreach and End outreach. [facility] 05-12-2021 Note HNO ID: [id number] Author: Bonnie Maciel RN Service: ? Author Type: Registered Nurse Type: Progress Notes Filed: 05/12/2021 2:39 PM Note Text: [facility] CDM TELEPHONIC OUTREACH Provider Action/FYI: Left VM. Contact made with patient: No - Left message - Robbie my name is Bonnie stock Forming Machine Upkeep Mechanic from the [facility] I am calling today for your bi-weekly check in. I am sorry I missed your call. I will reach out to you again tomorrow. (if the third call I will reach out to you again next week) Enter next patient outreach date for the following using the Track Pt Outreach. End outreach. [facility] 05-12-2021 Note Patient Outreach (AM [facility]) MI REEDER ([id number]) 1935 F Date Time Provider Department 05/12/21 RM, BONNIE [facility] During your visit today, we recorded the following information about you: Bonnie Maciel RN 05/12/2021 2:39 PM Signed RADHA [facility] TELEPHONIC OUTREACH Provider Action/FYI: Left VM. Contact made with patient: No - Left message - Robbie my name is Bonnie your Forming Machine Upkeep Mechanic from the [facility] I am calling today for your bi-weekly check in. I am sorry I missed your call. I will reach out to you again tomorrow. (if the third call I will reach out to you again next week) Enter next patient outreach date for the following day using the Track Pt Outreach. End outreach. Bonnie Maciel RN 05/16/2021 11:21 AM Signed RAD[facility] TELEPHONIC OUTREACH Provider Action/FYI: Doing well [...] like to speak with a social work team automobile assembler to help give you support for any [...] you up for automated weekly questionnaires through [employer]wl[employer]ing ???. This is an easy way for us [...] - Diarrhea CEFDINIR 01/19/2017 6 - Diarrhea RYTQTJB-QML-KAZ REDUCTASE INHIBIT*07/26/2015 14 - Other: See Comments [...] Aftercare [Z51.89] 03/27/2018 (more content not included)... [facility] 04-28-2021 Note HNO ID: [id number] Author: Bnonie Maciel RN Service: ? Author Type: Registered Nurse Type: Progress Notes Filed: 04/28/2021 4:20 PM Note Text: [facility] CDM Enrollment Provider Action/FYI: Enrolled in program telephonically. Patient referred by: [facility] [place] Contact made with patient: Yes - Patient identified by name and . Discussed care with patient Robbie this is Bonnie Maciel RN and I am calling from Bill Noble MD office at the [facility]. I am a RN Forming Machine Upkeep Mechanic with our [facility] Chronic Disease Management program. [...] few questions once a week through your OwlTing ??? account. It will automatically show up for [...] goal align with programs offered at the [facility]? No Patient accepts telephonic outreach Thank you [...] stressful. Can we connect you with a [facility] Health Instrumentation And Controls Technician to find a program that could help [...] business day two weeks from today?s date) [facility] 04-28-2021 Note Patient Outreach (AM [facility]) [place] REEDER ([id number]) 1935 F Date Time Provider Department 04/28/21 BONNIE MACIEL During your visit today, we recorded the following information about you: Bonnie Maciel RN 04/28/2021 4:20 PM Signed [facility] CDM Enrollment Provider Action/FYI: Enrolled in program telephonically. Patient referred by: [facility] [place] Contact made with patient: Yes - Patient identified by name and . Discussed care with patient Robbie this is Bonnie Maciel RN and I am calling from Bill Noble MD office at the [facility]. I am a RN Forming Machine Upkeep Mechanic with our [facility] Chronic Disease Management program. [...] few questions once a week through your [employer] ??? account. It will automatically show up for [...] goal align with programs offered at the [facility]? No Patient accepts telephonic outreach Thank you [...] stressful. Can we connect you with a [facility] Health Instrumentation And Controls Technician to find a program that could help [...] - Diarrhea CEFDINIR 01/19/2017 6 - Diarrhea XNDTTVN-XLH-HKB REDUCTASE INHIBIT*07/26/2015 14 - Other: See Comments Comments: Body aches Date Reviewed: 05/21/2019 Reviewed by: Layla Gorman MA - Fully Assessed Reason for Visit: community monitoring outreach [Other] Cmt: enrollment Primary Visit Diagnosis:Centrilobular emphysema (HCC) [J43.2] Order(s):CONSULT TO PRIMARY CARE COORDINATION CD [[id number]] Order #: [id number]: 1 Prescriptions as of 04/28/2021 Sig: LOSARTAN [...] Encounter Status:Closed by BONNIE MACIEL on 04/28/21 [facility] documented as of this encounter (statuses as of 03/25/2022) [facility] Pain in left hip Pain in joint, pelvic region and thigh documented in this encounter [facility] for referral (narrative)* Diagnostic Procedure Only (Routine) - Closed Specialty Diagnoses / Procedures Referred By Contac t Referred To Contact XR IMAGING Diagnoses Pain in left hip Procedures XR HIP 2V AP/LAT LEFT ([place]) RADEX HIP UNILATERAL WITH PELVIS 2-3 VIEWS Carlos Torres PA-C [address] [place] [address] Xr Imaging Referral ID Status Reason Start Date Expiration Date V isits Requested Visits Authorized [id number] Closed Auto-Generate d Referral 03/03/2022 04/01/2023 1 1 [facility] for visit Narrative* Diagnostic Procedure Only (Routine) - Closed Specialty Diagnoses / Procedures Referred By Contac t Referred To Contact XR IMAGING Diagnoses Pain in left hip Procedures XR HIP 2V AP/LAT LEFT ([place]) RADEX HIP UNILATERAL WITH PELVIS 2-3 VIEWS Carlos Torres PA-C [address] [place] [address] Xr Imaging Referral ID Status Reason Start Date Expiration Date V isits Requested Visits Authorized [id number] Closed Auto-Generate d Referral 03/03/2022 04/01/2023 1 1 [facility] Advance Directives No Advanced Directives Records FoundDocuments on File Type Date Recorded Patient Shutdown Planner Expl anation Advance Directive(s) 05/19/2019 1:42 PM [...] or prosecute any alcohol or drug abuse patient.[facility] Care Teams (unrecognized sec tion and content) INFORMATION SOURCE (unrecogn ized section and content) DATE CREATED AUTHOR AUTHOR'S MARGARET ATION 04/04/2022 [facility] FOR RECORDS PERTAINING TO PATIENTS WHO ARE [...] BE BASED ON THE PRIMARY CLINICAL RECORDS. [facility]. provides no warranty or guarantee of the accuracy or completeness of information in this document.
[2024-01-01 20:53] LABS: Absolute Lymphocyte Count 1.54 X10^3/uL (0.83-4.51); Absolute Neutrophil Count 3.4 X10^3/uL (2.0-7.7); Basophil# 0.02 X10^3/uL; Basophil% 0.3 % (0-1); Eosinophil# 0.05 X10^3/uL; Eosinophils% 0.9 % (0-5); Hematocrit 43.5 % (37-47); Hemoglobin 14.3 g/dL (12.0-15.0); Lymphocyte # 1.54 X10^3/ul (0.83-4.51); Lymphocyte % 26.6 % (19-41); Mean Corp Hgb Conc 32.9 g/dL (32-36); Mean Corpuscular Hgb 31.4 pg (27.0-32.0); Mean Corpuscular Volume 95.4 fL (81-99); Mean Platelet Vol. 12.5 fl (6.2-12.0); Monocyte# 0.73 X10^3/uL; Monocyte% 12.6 % (0-10); NRBC Flagged by Analyzer 0 % (0-5); Neutrophil # 3.44 X10^3/uL (2.7-7.7); Neutrophil % 59.4 % (47-70); Platelet Count 172 K/mm3 (150-450); RBC Distribution Width CV 14.6 % (11.6-14.6); RBC Distribution Width SD 50.2 fl (35.1-43.9); Red Blood Count 4.56 M/mm3 (4.2-5.4); White Blood Count 5.8 K/mm3 (4.4-11.0)
[2024-01-01 21:11] LABS: Erythrocyte Sedimentation Rate 3 mm/hr (0-30)
== END | disposition home or self-care (01) ==
PROVIDERS: PCP Nurse Practitioner; Visit Provider Nurse Practitioner
DX: M31.6 Other giant cell arteritis (principal); R42 Dizziness and giddiness
CPT/HCPCS: 85025; 85652

== ENCOUNTER 2024-04-19 09:23 | Emergency (ER) | payer MEDICARE, SELFPAY ==
[2024-04-19 09:24] VITALS: BP 190/96; PULSE 108; RESP 16; TEMP 36.4; O2SAT 95
[2024-04-19 09:33] VITALS: BP 159/102; PULSE 109
--- NOTE | 2024-04-19 10:08 | EKG12_ITS ---
Test Reason : Blood Pressure : / mmHG Vent. Rate : 098 BPM Atrial Rate : 098 BPM P-R Int : 182 ms QRS Dur : 072 ms QT Int : 378 ms P-R-T Axes : 026 -09 046 degrees QTc Int : 482 ms Sinus rhythm with Premature atrial complexes Otherwise normal ECG BASELINE ARTIFACT Confirmed by Sudeep Kulkarni ([id number]), online editor DANIEL NEIL ([id number]) on 04/21/2024 8:16:01 AM Referred By: Confirmed By:Sudeep Kulkarni
--- NOTE | 2024-04-19 10:09 | EX.ED.DYSGE1 ---
HPI History of Present Illness Chief Complaint: Weakness Informant: patient, family and EMS Narrative Narrative: 89-year-old female presenting to the emergency room with a chief complaint of I have not felt right for 2 to 3 months and hypertension. Patient states she has felt more fatigued lately. Recently she was placed on amlodipine and states her symptoms got worse. She has subsequently discontinued that medicine. She states that she was unable to sleep last night because the neighbor with the bone on his head was playing loud music all night and the neighbor on the other side of her she also has problems with. She states that this morning she took her blood pressure and it was parviz high (180/110 range). Family states that she called them and when they got there she was shaky and was not feeling correct. She has taken her morning blood pressure medications including diltiazem and losartan. She denies any fevers or chills. No arm or leg weakness. No speech difficulty. No chest pain shortness of breath or headache. Patient denies any urinary symptoms. She notes intermittent constipation. She notes easy bruising from thin skin from being out in the sun too long when I was a kid. [facility] Medical History Anorexia Centrilobular emphysema Lung nodules Nocturnal hypoxemia Vertigo Fracture of ribs, multiple Risk for falls Rib pain on left side Thoracic back pain Rib pain on right side Fall on/from ladder Musculoskeletal back pain B12 deficiency Fatigue Petechial hemorrhage Hypokalemia Tingling in extremities Essential tremor Hypoglycemia Adverse effect of drug with proper dosing Diarrhea Closed rib fracture Fusion of spine, lumbar region Compression fx, thoracic spine Right-sided low back pain with sciatica Right hip pain Costochondral chest pain Bruising tendency Constipation Basal cell carcinoma, face Basal cell carcinoma, face Nonhealing nonsurgical wound Left hip pain Hyperlipidemia Strain of right trapezius muscle Anxiety Hypertension Need for influenza vaccination Dizziness Shortness of breath Anemia Depression Generalized muscle weakness Cough Weight loss Bronchitis Pain in the groin Sebaceous cyst Compression fracture of thoracic vertebra Thoracic spine pain Compression fracture of thoracic vertebra Acute frontal sinusitis FH: total abdominal hysterectomy and bilateral salpingo-oophorectomy Primary localized osteoarthritis of left hip Home Medications ?Medication ?Instructions ?Recorded ?Last Taken ?Type polyethylene glycol 3350 17 4 g PO DAILY PRN 08/28/23 Unknown History gram/dose oral powder (Miralax) alprazolam 0.25 mg tablet 0.25 mg PO QHS PRN anxiety #30 tabs 12/04/23 Unknown Rx desvenlafaxine succinate 25 mg 25 mg PO DAILY anxiety and 12/26/23 Unknown Rx tablet,extended release 24 hr depression #90 tabs gabapentin 100 mg capsule 200 mg (2 x 100 mg) PO TID PRN 12/26/23 Unknown Rx pain (scale score 4-6)shingles #360 caps losartan 100 mg tablet 100 mg PO DAILY #90 tabs 12/26/23 Unknown Rx potassium chloride 20 mEq 20 meq PO DAILY #90 tabs 12/26/23 Unknown Rx tablet,extended release diltiazem HCl 240 mg 240 mg PO DAILY #90 tabs 02/22/24 Unknown Rx tablet,extended release 24 hr doxycycline hyclate 100 mg capsule 100 mg PO BID #14 caps 03/13/24 Unknown Rx amlodipine 5 mg tablet 5 mg PO DAILY #90 tabs 04/11/24 Unknown Rx mirtazapine 7.5 mg tablet 7.5 mg PO QHS #90 tabs 04/11/24 Unknown Rx Allergy/AdvReac Type Severity Reaction Status Date / Time amoxicillin Allergy Severe sob and Verified 04/19/24 09:29 severe diarrhea Gwsiaax-QZA-NgE Reductase Allergy Severe muscle Verified 04/19/24 09:29 Inhibitor (Cfcmozu-Egu-Wxu aches Reductase Inhibitor) Sulfa (Sulfonamide AdvReac Severe diarrhea Verified 04/19/24 09:29 Antibiotics) Family History Father Heart disease Surgical History History of total left hip replacement Social History Smoking Status: Former smoker how long ago did patient quit smokin years ago alcohol intake: never substance use type: does not use caffeine: Yes Type: coffee Number of servings: 3 ROS ROS ED ROS Narrative Generalized fatigue Constitutional Constitutional ED: Denies chills, fever(s) or weight loss Eyes Eyes: Denies change in vision or diplopia ENT ENT ED: Denies ear pain, rhinorrhea or sore throat Cardiovascular Cardiovascular: Denies chest pain, orthopnea, palpitations or racing heartbeat Respiratory/Chest Respiratory/Chest: Denies cough, dyspnea or orthopnea Gastrointestinal Gastrointestinal: Denies abdominal pain, diarrhea, nausea or vomiting Genitourinary Genitourinary ED: Denies dysuria, hematuria or urinary frequency Musculoskeletal Musculoskeletal: Denies arthralgias, back pain, myalgias or neck pain Integumentary Denies abscess or rash Neurologic Neurologic: Denies headache(s) or weakness Psychiatric Psychiatric: Denies anxiety, depression, suicidal ideation or suicidal thoughts Endocrine Endocrinology: Denies polydipsia, polyphagia or polyuria Hematologic/Lymphatic Hematologic/Lymphatic: Reports easy bruising Allergic/Immunologic Allergic/Immunologic ED: Denies mouth swelling, tongue swelling or urticaria EXAM Physical Exam Const Vital Signs: 04/19/24 09:24 04/19/24 09:29 04/19/24 09:33 Temperature 97.5 F L Temperature Source Oral Pulse Rate 108 H 109 H Respiratory Rate 16 Respiratory Effort Normal Non-Labored Respiratory Pattern Normal Blood Pressure 190/96 H 159/102 H Blood Pressure Mean 127 121 Pulse Ox 95 Oxygen Delivery Method Room Air Positive well nourished and well developed General Appearance ED: well developed HEENT Reports normocephalic, head/scalp atraumatic and moist mucous membranes Eyes PERRL and EOMs intact bilaterally Neck no lymphadenopathy, supple and no JVD Resp normal respiratory effort and clear to auscultation bilaterally Cardio regular rate, regular rhythm and no murmurs GI normal to inspection, nondistended, normoactive bowel sounds and non-tender Palpation: soft Back/Spine no CVA tenderness and normal ROM Extremity normal to inspection General Extremety ED: Negative for edema General Extremity: Negative for edema Neuro oriented x3 and CN's II-XII intact bilaterally Sensorium / Orientation: alert Motor Exam: strength 5/5 throughout Psych mental status grossly normal Mood & Affect: Negative for depressed or tearful Skin no rashes or lesions noted and no wounds Skin Narrative: There are various contusions in different states of healing noted on the arms and the legs particularly the bilateral shins and bilateral forearms. No evidence of cellulitis. MDM MDM MDM Narrative Medical decision making narrative: Functional diagnosis is very broad given generalized complaint of fatigue. Coupled with the elevated blood pressure differential diagnosis could include endorgan injury such as NSTEMI STEMI and renal disease electrolyte abnormalities or dissection stroke CBC is normal coags normal. BMP with a glucose of of 101. Normal creatinine. No proteinuria. Troponin is normal. LFTs are normal. My independent interpretation of the chest x-ray is no acute process. Normal mediastinal silhouette. Nonischemic Repeat examination finds the patient's blood pressure to currently be 121/82. She is resting comfortably in the bed. At this point I do not believe the patient needs to have an alteration in her blood pressure medications. I am not seeing evidence of endorgan damage. I do not believe she has had a stroke with a normal neurologic exam and no headache. The patient's blood pressure has come down with her morning medications. Would recommend following up with her primary care doctor History & Record Review Discussion w/independent historian: Patient and Family Lab Data Attestation: I reviewed the patient's lab results. Labs: Laboratory Results - last 24 hr 04/19/24 04/19/24 09:50 10:35 WBC 5.0 RBC 4.37 Hgb 13.9 Hct 41.3 MCV 94.5 MCH 31.8 MCHC 33.7 RDW Std Deviation 42.7 RDW Coeff of [place] 12.2 Plt Count 183 MPV 10.8 Immature Gran % (Auto) 0.200 Neut % (Auto) 62.2 Lymph % (Auto) 24.7 [place] % (Auto) 11.1 H Eos % (Auto) 1.4 Baso % (Auto) 0.4 Absolute Neuts (auto) 3.1 Absolute Lymphs (auto) 1.23 Nucleated RBC % 0 PT 12.9 INR 1.0 APTT 31.5 Sodium 145 Potassium 3.4 L Chloride 113 H Carbon Dioxide 27.0 Anion Gap 5 BUN 6 L Creatinine 0.63 Estim Creat Clear Calc 34.24 Est GFR (MDRD) Af Amer 114 Est GFR (MDRD) Non-Af 95 BUN/Creatinine Ratio 9.5 L Glucose 101 Calcium 9.4 Total Bilirubin 0.50 Direct Bilirubin 0.17 AST 21 ALT 19 Alkaline Phosphatase 70 Troponin I High Sens 6 Total Protein 6.8 Albumin 3.6 Globulin 3.2 Urine Color Straw Urine Clarity Clear Urine pH 8.0 Ur Specific [place] 1.010 Urine Protein Negative Urine Glucose (UA) Normal Urine Ketones Negative Urine Occult Blood Negative Urine Nitrite Negative Urine Bilirubin Negative Urine Urobilinogen Normal Ur Leukocyte Esterase Negative Urine RBC 0 SEEN Urine WBC 0 SEEN Ur Squamous Epith Cells 0 SEEN Urine Bacteria 0 SEEN Urine Mucus 0 SEEN Radiography Diagnostic Testing: Clinical Impression(s) from Imaging Studies Chest X-Ray 04/19/24 10:48 IMPRESSION: Degenerative changes, as described above. No demonstrated acute cardiopulmonary process. Electronically Signed: Kojo Roblero MD at 11:10 EDT Reading Location ID and State: [address] [place] [address] , Service support , EKG Initial EKG: Attestation: I personally reviewed and interpreted this EKG as follows: Comments: Normal sinus rhythm with premature atrial complexes at a rate of 98 beats per min Discharge Plan Triage Chief Complaint: Weakness ED Provider: Carlos Monsivais Dx/Rx/DC Orders Clinical Impression: Fatigue, Hypertension Instructions: ED High Blood Pressure Hypertension Prescriptions: No Action polyethylene glycol 3350 [Miralax] 17 gram/dose powder 4 g PO DAILY PRN alprazolam 0.25 mg tablet 0.25 mg PO QHS PRN (Reason: anxiety) Qty: 30 5RF doxycycline hyclate 100 mg capsule 100 mg PO BID Qty: 14 0RF amlodipine 5 mg tablet 5 mg PO DAILY Qty: 90 3RF mirtazapine 7.5 mg tablet 7.5 mg PO QHS Qty: 90 0RF desvenlafaxine succinate 25 mg tablet extended release 24 hr 25 mg PO DAILY Qty: 90 2RF gabapentin 100 mg capsule 200 mg PO TID PRN (Reason: pain (scale score 4-6)shingles) Qty: 360 2RF potassium chloride 20 mEq tablet extended release 20 meq PO DAILY Qty: 90 2RF losartan 100 mg tablet 100 mg PO DAILY Qty: 90 2RF diltiazem HCl 240 mg tablet extended release 24 hr 240 mg PO DAILY Qty: 90 2RF Primary Care Provider: Yumiko Rodriguez NP Referrals: Yumiko Rodriguez NP, [facility] [Primary Care Provider] - 1-2 Weeks Print Language: Thai Disposition Disposition: Home, Self Care
[2024-04-19 10:19] LABS: Absolute Lymphocyte Count 1.23 X10^3/uL (0.83-4.51); Absolute Neutrophil Count 3.1 X10^3/uL (2.0-7.7); Basophil# 0.02 X10^3/uL; Basophil% 0.4 % (0-1); Eosinophil# 0.07 X10^3/uL; Eosinophils% 1.4 % (0-5); Hematocrit 41.3 % (37-47); Hemoglobin 13.9 g/dL (12.0-15.0); Lymphocyte # 1.23 X10^3/ul (0.83-4.51); Lymphocyte % 24.7 % (19-41); Mean Corp Hgb Conc 33.7 g/dL (32-36); Mean Corpuscular Hgb 31.8 pg (27.0-32.0); Mean Corpuscular Volume 94.5 fL (81-99); Mean Platelet Vol. 10.8 fl (6.2-12.0); Monocyte# 0.55 X10^3/uL; Monocyte% 11.1 % (0-10); NRBC Flagged by Analyzer 0 % (0-5); Neutrophil # 3.09 X10^3/uL (2.7-7.7); Neutrophil % 62.2 % (47-70); Platelet Count 183 K/mm3 (150-450); RBC Distribution Width CV 12.2 % (11.6-14.6); RBC Distribution Width SD 42.7 fl (35.1-43.9); Red Blood Count 4.37 M/mm3 (4.2-5.4)
[2024-04-19 10:26] LABS: Partial Thromboplast Time 31.5 Seconds (24.1-36.2); Prothrombin Time (Protime)PT. 12.9 SECONDS (11.7-14.9)
[2024-04-19 10:37] LABS: AST(SGOT) 21 U/L (15-37); Alanine Aminotransfer ALT/SGPT 19 U/L (13-56); Albumin, Serum 3.6 g/dL (3.2-5.0); Alkaline Phosphatase 70 U/L (45-117); Anion Gap 5 (5-15); BUN 6 mg/dL (7-18); BUN/Creat Ratio 9.5 RATIO (10-20); Bilirubin, Direct 0.17 mg/dL (0.00-0.30); Calcium,Total 9.4 mg/dL (8.5-10.1); Chloride 113 mmol/L (98-107); Creatinine, Serum 0.63 mg/dL (0.55-1.02); EST Glomerular Filtration Rate 95 mL/min (>60); Est Glom Filt Rate - Afr Amer 114 mL/min (>60); Estimated Creatinine Clearance 34.24 ml/min; Globulin 3.2 g/dL (2.2-4.2); Glucose 101 mg/dL (74-106); Potassium 3.4 mmol/L (3.5-5.1); Protein, Total 6.8 g/dL (6.4-8.2); Sodium Level 145 mmol/L (136-145); Troponin-I HS 6 pg/mL (3.0-54.0)
[2024-04-19 10:37] LABS: Bacteria 0 SEEN /hpf (None Seen); Mucous, Urine 0 SEEN /hpf (<or=2+); Red Blood Cells-Urine 0 SEEN /hpf (0-5); Squamous Epithelial Cells - UA 0 SEEN /hpf (5-10); White Blood Cells 0 SEEN /hpf (0-5)
[2024-04-19 10:41] LABS: Color, Urine Straw (Yellow); Glucose, Dipstick Normal (Normal); Ketone-Dipstick Negative (Negative); Leukocyte Esterase-Dipstick Negative /ul (Negative); Nitrite-Dipstick Negative (Negative); Occult Blood-Urine Negative /ul (Negative); Protein-Dipstick Negative (Negative); Urine Bilirubin Dipstick Negative (Negative); Urine Clarity Clear (Clear); Urine Urobilinogen Normal (Normal)
--- NOTE | 2024-04-19 10:48 | RAD_ITS ---
STUDY: X-RAY CHEST REASON FOR EXAM: Female, 89 years old. hypertension pt reports hypertension at home it was parviz high squad reports general weakness x1 week TECHNIQUE: Single AP portable view of the chest. COMPARISON: None. FINDINGS: The lungs are clear and expanded. There is no demonstrated pleural abnormality. Normal size heart. Normal mediastinum and rain. Normal visualized pulmonary arteries. There is atherosclerotic calcification of the aortic arch with tortuosity. There are diffuse degenerative changes of the visualized thoracic spine. Normal visualized ribs, clavicles, and shoulders. There is no demonstrated abnormality of the visualized soft tissue structures of the upper abdomen. RAD/Chest 1 View (Portable) IMPRESSION: Degenerative changes, as described above. No demonstrated acute cardiopulmonary process. Electronically Signed: Kojo Roblero MD at 11:10 EDT ,
[2024-04-19 11:24] VITALS: BP 121/82; PULSE 86; RESP 15; O2SAT 93
== END 2024-04-19 11:34 | disposition home or self-care (01) ==
PROVIDERS: Emergency Provider Emergency Medicine; PCP Nurse Practitioner; Visit Provider Emergency Medicine
DX: R53.83 Other fatigue (principal); Z87.891 Personal history of nicotine dependence; I10 Essential (primary) hypertension; Z79.899 Other long term (current) drug therapy; R23.3 Spontaneous ecchymoses
CPT/HCPCS: 71045; 80048; 80076; 81001; 84484; 85025; 85610; 85730; 93005; 99284; A4216

== ENCOUNTER → 2024-09-16 | Outpatient (CLI) | payer MEDICARE, SELFPAY ==
--- OUTSIDE RECORDS SUMMARY | 2024-09-16 21:21 | XMS RPT_ITS | CCD ---
Author Organization [facility] Care Team Providers Care Lens Grinding Machine Operator Name Role Phone Agustin Anguiano Unavailable Michael SECRET SERVICE AGENT.Jj ORDAZ Primary Care Provide r JJ JAMISON Primary Care Unavailable JAKE DIAZ Attending Unavailable JJ JAMISON Primary Care Unavailable KRISTEN FALCON Attending Unava ilable JJ JAMISON Primary Care Unavailable ALEXANDRE MARX Admitting Unavailable RAJI RUTLEDGE Attending Unavailable Allergies Allergy Classification Reported Allergen(s) Allergy Type Date of Onset Reaction(s) Facility (3 sources) Amoxicillin / Clavulanate; Translations: [AMOXICILLIN-POT CLAVULANATE] Drug Allergy 07-26-2015 Diarrhea [facility] (3 sources) cefdinir; Translations: [CEFDINIR] Drug Allergy 01-19-2017 Diarrhea [facility] (3 sources) HMG-CoA reductase inhibitor; Translations: [KHVRTKY-VVC-GRY REDUCTASE INHIBITORS] Drug Allergy 07-26-2015 Other: See Comments [facility] Medications Completed/Discontinued Medications Medication Drug Class(es) Dates Sig (Normalized) Sig (Original) aspirin 81 mg oral tablet (1 source) Platelet Aggregation Inhibitor, Nonsteroidal Anti-inflammator y Drug take 1 tablet by mouth once daily Aspirin 81 mg Tab Take 81 mg by mouth once daily. 0 Active Comment on above: Take 81 mg by mouth once daily. COMPOUNDED PRESCRIPTION (1 source) Start: 8 COMPOUNDED PRESCRIPTION 3 LPM O2 via nasal cannula with any sleep. Assoc DX: G47.34, J43.2. 1 Each 0 01/15/2018 Active Comment on above: 3 LPM O2 via nasal c annula with any sleep. Assoc DX: G47.34, J43.2. 24 hr dilTIAZem hydrochloride 180 mg extended release oral capsule (1 source) Calcium Channel Xavier Start: 9 take 1 capsule by mouth once daily diltiazem CR (TIAZAC, TAZTIA XT) 180 mg 24 hr capsule Indications: Essential hypertension Take 1 capsule by mouth once daily. 30 capsule 11 08/18/2019 Active Comment on above: Take 1 capsule by mo uth once daily. hydroCHLOROthiazide 12.5 mg oral capsule (1 source) Thiazide Diuretic Start: 0 take 1 capsule by mouth once daily Hydrochlorothiazide 12.5 mg capsule Take 1 capsule by mouth once daily. 90 capsule 3 02/04/2020 Active Comment on above: Take 1 capsule by mo uth once daily. loratadine 10 mg oral tablet (1 source) loratadine (CLAR ITIN) 10 mg tablet Take 10 mg by mouth as needed. 0 Active Comment on above: Take 10 mg by mouth as needed. losartan potassium 100 mg oral tablet (1 source) Angiotensin 2 Receptor Xavier Start: 0 take 1 tablet by mouth once daily losartan (COZAAR) 100 mg tablet Take 1 tablet by mouth once daily. 90 tablet 3 02/04/2020 Active Comment on above: Take 1 tablet by lana once daily. Problems Active Problems Problem Classification Problem Date Documented Da te Episodic/Chronic Chronic obstructive pulmonary disease and bronchiectasis (2 sources) Chronic obstructive lung disease; Translations: [Chronic obstructive pulmonary disease, unspecified] Onset: 04-05-2017 03-26-2018 Chronic Conditions associated with dizziness or vertigo (2 sources) Vertigo; Translations: [Dizziness and giddiness] Onset: 08-23-2017 08-23-2017 Episodic Disorders of lipid metabolism (1 source) Hyperlipidemia; Translations: [Hyperlipidemia, unspecified] Onset: 04-28-2013 11-21-2021 Chronic Essential hypertension (3 sources) Hypertensive disorder; Translations: [Essential (primary) hypertension] Onset: 05-12-2014 11-21-2021 Chronic Other and ill-defined cerebrovascular disease (1 source) Intracranial aneurysm; Translations: [Cerebral aneurysm, nonruptured] Onset: 09-19-2016 11-22-2021 Chronic Other fractures (2 sources) Multiple fractures of ribs, left side, initial encounter for closed fracture; Translations: [Multiple fractures of ribs, left side, initial encounter for closed fracture] Onset: 04-30-2024 Episodic Other injuries and conditions due to external causes (1 source) Unspecified injury of head, initial encounter; Translations: [Minor head trauma] Onset: 04-28-2024 Episodic Other lower respiratory disease (1 source) Pleurodynia; Translations: [Rib pain] Onset: 04-30-2024 Episodic Other non-traumatic joint disorders (1 source) Hip pain; Translations: [Pain in left hip] Episodic Residual codes; unclassified (1 source) Hypoxia; 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] Onset: 03-27-2018 03-27-2018 Chronic Superficial injury; contusion (1 source) Contusion of left front wall of thorax, initial encounter; Translations: [Contusion of left chest wall, initial encounter] Onset: 04-28-2024 Episodic Past or Other Problems Problem Classification Problem Date Documented Da te Episodic/Chronic Fracture of neck of femur (hip) (1 [...] Results Test Name Value Interpretation Reference Range Facility 25(OH)D3 [facility] 2023 25-hydroxyvitamin D3 [Mass/Vol] 13.3 ng/mL Low 31.0-80.0 [facility] Comment on above: Order Comment: Speci men Type: BLOOD SPECIMENOrdering Facility: [facility] Address: [address] [place] [address] Result Comment: Clas sification of 25 [place] Vitamin D status: Deficiency/Insufficiency: < or = 30 ng/ml. Sufficiency/Optimal Levels: 31-80 ng/mL Toxicity: > 100 ng/mL. Test performed by chemiluminescent immunoassay. Performed By: #### 1 989-3 ####[facility] LABCLIA [id number] [place] [id number] [place] HISTORY PHYSICALon HISTORY PHYSICAL HNO ID: [id number] Author: ALEXANDRE MARX MD Service: Hospital Medicine Author Type: Physician Type: H&P Filed: 05/01/2024 03:34 Note Text: DEPARTMENT OF HOSPITAL MEDICINE HISTORY AND PHYSICAL EXAM SERVICE DATE: 05/01/2024 SERVICE TIME: 3:05 AM Primary Care Physician: Jj Jamison APRN.[facility] NIGHT AND WEEKEND COVERAGE: [place] COVERAGE: Days: [phone], please page attending physician. Nights: [phone], please page [place] [facility] Night coverage pager [phone]. Subjective CHIEF COMPLAINT: Left lower chest pain/Rib fracture HPI: This is a 89 year old female with PMHx as listed below who presents to the ED with concerns of left lower chest pain x 2 days. On 04/28, she had a fall, she was unsteady on her feet and her legs gave out. She hit her head and landed on her left side of her ribs. No LOC a that time. She was seen in the ED, CTH obtained was WNL. CXR showed left sided rib fractures. She was discharged with conservative management - tylenol/motrin. She returned yesterday with uncontrolled pain at the same site. No SOB or pain with inspiration. Not on blood thinners. In the ED, her vitals were WNL. Labs unremarkable. Repeat CXR showed a small pleural effusion, bones are osteopenic and there are multiple chronic vertebral compression deformities. CT chest - Thoracic vertebral compressions are probably chronic. Small left pleural effusion. Bibasilar subsegmental atelectasis. PAST MEDICAL HISTORY Diagnosis Date Palmer's palsy Compression fracture of T6 vertebra (HCC) 09/22/2019 Compression fracture of T7 vertebra (HCC) 09/22/2019 Compression fracture of T8 vertebra (HCC) 09/22/2019 DDD (degenerative disc disease), lumbar 09/22/2019 Hyperlipidemia Hypertension Lumbar radiculopathy 09/22/2019 Osteoporosis Vertigo PAST SURGICAL HISTORY Procedure Laterality Date ARTHRP ACETBLR/PROX FEM PROSTC AGRFT/ALGRFT Left Hip replacement, total CHOLECYSTECTOMY HX HYSTERECTOMY due to bleeding, fibroids; no cancer HYSTERECTOMY HX OVARIAN CYSTECTOMY TONSILLECTOMY HX age 18 FAMILY HISTORY Problem Relation Age of Onset other (Stomach cancer) Mother other (Lung Cancer) Brother lung Cancer Sister Unknown type other (Liver cirrhosis) Father Alcohol abuse Asthma Paternal Grandmother Asthma Paternal Grandfather Social History Tobacco Use Smoking status: Former Packs/day: 1.00 Years: 53.00 Additional pack years: 0.00 Total pack years: 53.00 Types: Cigarettes Start date: 03/12/1953 Quit date: 05/12/2006 Years since quittin.9 Smokeless tobacco: Never Vaping Use Vaping Use: Never used Substance Use Topics Alcohol use: No Drug use: No PRIOR TO ADMISSION MEDICATIONS: desvenlafaxine ER (PRISTIQ) 25 mg 24 hr tablet, Take 25 mg by mouth once daily., Disp: , Rfl: Mirtazapine (REMERON) 7.5 mg tablet, Take 7.5 mg by mouth daily at bedtime., Disp: , Rfl: amLODIPine (NORVASC) 5 mg tablet, Take 5 mg by mouth once daily., Disp: , Rfl: ALPRAZolam (XANAX) 0.25 mg tablet, TAKE 1 TABLET BY MOUTH AT BEDTIME NEEDED FOR ANXIETY, Disp: , Rfl: losartan (COZAAR) 100 mg tablet, Take 1 tablet by mouth once daily., Disp: 90 tablet, Rfl: 3 diltiazem CR (TIAZAC, TAZTIA XT) 180 mg 24 hr capsule, Take 1 capsule by mouth once daily. (Patient taking differently: Take 240 mg by mouth once daily.), Disp: 30 capsule, Rfl: 11 Hydrochlorothiazide 12.5 mg capsule, Take 1 capsule by mouth once daily., Disp: 90 capsule, Rfl: 3 zoster vaccine, recombinant, adjuvanted, (SHINGRIX) 50 mcg/0.5 mL injection, 0.5ml IM at month 0 and then in 2-6 months, Disp: 2 Each, Rfl: 0 COMPOUNDED PRESCRIPTION, 3 LPM O2 via nasal cannula with any sleep. Assoc DX: G47.34, J43.2., Disp: 1 Each, Rfl: 0 loratadine (CLARITIN) 10 mg tablet, Take 10 mg by mouth as needed., Disp: , Rfl: Aspirin 81 mg Tab, Take 81 mg by mouth once daily. (Patient not taking: Reported on 03/24/2022 ), Disp: , Rfl: ALLERGIES Allergen Reactions Amoxicillin-Pot Cla* Diarrhea Cefdinir Diarrhea Odgemwr-Wxu-Nuc Red* Other: See Comments Body aches COMPLETE REVIEW OF SYSTEMS: PAIN ASSESSMENT: Negative for pain, history of chronic pain, or current treatment for a chronic pain condition. GENERAL: No weight loss, malaise or fevers HEENT: Negative for frequent or significant headaches, No changes in hearing or vision, no nose bleeds or other nasal problems NECK: Negative for lumps, goiter, pain and significant neck swelling RESPIRATORY: Negative for cough, hemoptysis, wheezing, COPD, dyspnea or shortness of breath CARDIOVASCULAR: Lower chest pain GI: No nausea, vomiting, or diarrhea : No history of dysuria, frequency or incontinence MUSCULOSKELETAL: Negative for joint pain or swelling, back pain or muscle pain SKIN: Negative for lesions, rash, and itching PSYCH: Negative for sleep disturbance, mood disorder and recent psychosocial stressors HEMATOLOGY/LYMPHOLOGY: Negativ (more content not included)... [facility] 04-30-2024 [facility] HNO ID: [id number] Author: LAYLA SIMONS RT(R) Service: Radiology Author Type: Technologist Type: Allied Health Filed: 04/30/2024 14:57 Note Text: Radiology Service Progress Note DATE OF SERVICE: April 30, 2024 TIME: 2:56 PM PATIENT IDENTITY VERIFICATION COMPLETED USING TWO (2) STANDARD IDENTIFIERS: Name and Date of confirmed by patient verbally and Name and Date of confirmed by identification band. FALL SCREENING: Has the patient had 2 falls in the last year or 1 fall with injury or currently using an Ambulatory Assistive Device (Walker, Cane, Wheelchair, Crutches, etc.)? Emergency Room Patient: Screened in ED PATIENT GENDER DATA: Female. status: : No status: NO. PATIENT RELEVANT IMPLANT DATA REVIEWED: Yes PATIENT PRESENTS WITH AN IMPLANTABLE OR ATTACHED POLISHER DIAL: No ALLERGIES: Reviewed and unchanged CONTRAST ALLERGY: NO. EXAM: CT -CONTRAST INDUCED NEPHROPATHY RISK FACTORS: Patient age > 60 years CREATININE: Creatinine Date Value Ref Range Status 04/30/2024 0.62 0.58 - 0.96 mg/dL Final 04/23/2024 0.65 0.58 - 0.96 mg/dL Final 04/02/2019 0.71 0.58 - 0.96 mg/dL Final Estimated Glomerular Filtration Rate Date Value Ref Range Status 04/30/2024 85 >=60 mL/min/1.73m? Final Comment: Estimated Glomerular Filtration Rate (eGFR) is calculated using the 2020 CKD-EPI creatinine equation. This equation utilizes serum creatinine, sex, and age as parameters. The creatinine assay has traceable calibration to isotope dilution-mass spectrometry. Refer to KDIGO guidelines for clinical interpretation. In patients with unstable renal function, e.g. those with acute kidney injury, the eGFR may not accurately reflect actual GFR. eGFR- Date Value Ref Range Status 04/02/2019 >60 Final P.O.C.T. RESULTS: POC done: Yes, See Lab Tab April 30, 2024 TREATMENT: N/A PERIPHERAL IV DATA: Ambulatory: A peripheral IV was started in the Right antecubital site with a Angio cath: 20 gauge. RADIOLOGY DEPARTMENT: CT; Exam(s) Completed: Chest SIGNATURE: RT Dylon(R) PATIENT NAME: Mi Reeder DATE: April 30, 2024 TIME: 2:56 PM [facility] HNO ID: [id number] Author: NUVIA JAQUEZ Tech Service: ? Author Type: Computer Applications Engineer Type: Allied Health Filed: 04/30/2024 12:53 Note Text: Radiology Service Progress Note PATIENT NAME: Mi Reeder DATE OF SERVICE: April 30, 2024 TIME: 12:52 PM PATIENT IDENTITY VERIFICATION COMPLETED USING TWO (2) IDENTIFIERS: Name and Date of confirmed by patient verbally and Name and Date of confirmed by identification band. FALL SCREENING: Has the patient had 2 falls in the last year or 1 fall with injury or currently using an Ambulatory Assistive Device (Walker, Cane, Wheelchair, Crutches, etc.)? Emergency Room Patient: Screened in ED PATIENT GENDER DATA: Female. status: : No status: N/A PATIENT RELEVANT IMPLANT DATA REVIEWED: Not Applicable PATIENT PRESENTS WITH AN IMPLANTABLE OR ATTACHED POLISHER DIAL: No RADIOLOGY DEPARTMENT: General X-ray: Exam(s) Completed: Chest X-Ray PERIPHERAL IV DATA: Not applicable SIGNED BY: Nae Benitez April 30, 2024 12:52 PM Normal [facility] CBC W Auto Differential pane l (Bld)on 04-30-2024 Basophils (Bld) [#/Vol] 10*3/uL Normal <0.11 [facility] Comment on above: Order Comment: Speci men Type: BLOOD SPECIMENOrdering Facility: [facility] Address: [address] [place] [address] Performed By: #### 5 7021-8 ####[facility]ATORYCLIA [id number] [place] [address] [place] Basophils/100 WBC (Bld) 0.1 % Normal [facility] Comment on above: Order Comment: Speci men Type: BLOOD SPECIMENOrdering Facility: [facility] Address: [address] [place] [address] Performed By: #### 5 7021-8 ####[facility]ORATORYCLIA [id number] [place] [address] [place] Differential cell count method Nom (Bld) Auto Normal [facility] Comment on above: Order Comment: Speci men Type: BLOOD SPECIMENOrdering Facility: [facility] Address: [address] [place] [address] Performed By: #### 5 7021-8 ####[facility]ATORYCLIA [id number] [place] [address] [place] Eosinophils (Bld) [#/Vol] 0.03 10*3/uL Normal <0.46 [facility] Comment on above: Order Comment: Speci men Type: BLOOD SPECIMENOrdering Facility: [facility] Address: [address] [place] [address] Performed By: #### 5 7021-8 ####[facility]ORATORYCLIA [id number] [place] [address] [place] Eosinophils/100 WBC (Bld) 0.4 % Normal [facility] Comment on above: Order Comment: Speci men Type: BLOOD SPECIMENOrdering Facility: [facility] Address: [address] [place] [address] Performed By: #### 5 7021-8 ####[facility]ORATORYCLIA [id number] [place] [address] [place] Erythrocyte distribution width (RBC) [Ratio] 12.2 % Normal 11.5-15.0 [facility] Comment on above: Order Comment: Speci men Type: BLOOD SPECIMENOrdering Facility: [facility] Address: [address] [place] [address] Performed By: #### 5 7021-8 ####[facility]ORATORYCLIA [id number] [place] [address] [place] Hematocrit (Bld) [Volume fraction] 42.0 % Normal 36.0-46.0 [facility] Comment on above: Order Comment: Speci men Type: BLOOD SPECIMENOrdering Facility: [facility] Address: [address] [place] [address] Performed By: #### 5 7021-8 ####[facility]ORATORYCLIA [id number] [place] [address] [place] Hemoglobin (Bld) [Mass/Vol] 14.6 g/dL Normal 11.5-15.5 [facility] Comment on above: Order Comment: Speci men Type: BLOOD SPECIMENOrdering Facility: [facility] Address: [address] [place] [address] Performed By: #### 5 7021-8 ####[facility]ORATORYCLIA [id number] [place] [address] [place] Immature granulocytes (Bld) [#/Vol] 10*3/uL Normal <0.10 [facility] Comment on above: Order Comment: Speci men Type: BLOOD SPECIMENOrdering Facility: [facility] Address: [address] [place] [address] Performed By: #### 5 7021-8 ####[facility]ORATORYCLIA [id number] [place] [address] [place] Immature granulocytes/100 WBC (Bld) 0.1 % Normal [facility] Comment on above: Order Comment: Speci men Type: BLOOD SPECIMENOrdering Facility: [facility] Address: [address] [place] [address] Performed By: #### 5 7021-8 ####[facility]ORATORYCLIA [id number] [place] [address] [place] Lymphocytes (Bld) [#/Vol] 0.88 10*3/uL Low 1.00-4.00 [facility] Comment on above: Order Comment: Speci men Type: BLOOD SPECIMENOrdering Facility: [facility] Address: [address] [place] [address] Performed By: #### 5 7021-8 ####[facility]ORATORYCLIA [id number] [address] Lymphocytes/100 WBC (Bld) 12.0 % Normal [facility] Comment on above: Order Comment: Speci men Type: BLOOD SPECIMENOrdering Facility: [facility] Address: [address] [place] [address] Performed By: #### 5 7021-8 ####[facility]ORATORYCLIA [id number] [address] [place] [facility] MCH (RBC) [Entitic mass] 31.9 pg Normal 26.0-34.0 [facility] Comment on above: Order Comment: Speci men Type: BLOOD SPECIMENOrdering Facility: [facility] Address: [address] [place] [address] Performed By: #### 5 7021-8 ####[facility]ORATORYCLIA [id number] [address] MCHC (RBC) [Mass/Vol] 34.8 g/dL Normal 30.5-36.0 [facility] Comment on above: Order Comment: Speci men Type: BLOOD SPECIMENOrdering Facility: [facility] Address: [address] [place] [address] Performed By: #### 5 7021-8 ####[facility]ORATORYCLIA [id number] [address] MCV (RBC) [Entitic vol] 91.9 fL Normal 80.0-100.0 [facility] Comment on above: Order Comment: Speci men Type: BLOOD SPECIMENOrdering Facility: [facility] Address: [address] [place] [address] Performed By: #### 5 7021-8 ####[facility]ORATORYCLIA [id number] [place] [address] [place] Monocytes (Bld) [#/Vol] 0.70 10*3/uL Normal <0.87 [facility] Comment on above: Order Comment: Speci men Type: BLOOD SPECIMENOrdering Facility: [facility] Address: [address] [place] [address] Performed By: #### 5 7021-8 ####[facility]ORATORYCLIA [id number] [address] Monocytes/100 WBC (Bld) 9.5 % Normal [facility] Comment on above: Order Comment: Speci men Type: BLOOD SPECIMENOrdering Facility: [facility] Address: [address] [place] [address] Performed By: #### 5 7021-8 ####[facility]ORATORYCLIA [id number] [place] [address] [place] Neutrophils (Bld) [#/Vol] 5.71 10*3/uL Normal 1.45-7.50 [facility] Comment on above: Order Comment: Speci men Type: BLOOD SPECIMENOrdering Facility: [facility] Address: [address] [place] [address] Performed By: #### 5 7021-8 ####[facility]ORATORYCLIA [id number] [address] [place] Neutrophils/100 WBC (Bld) 77.9 % Normal [facility] Comment on above: Order Comment: Speci men Type: BLOOD SPECIMENOrdering Facility: [facility] Address: [address] [place] [address] Performed By: #### 5 7021-8 ####[facility]ORATORYCLIA [id number] [place] [address] [place] Nucleated RBC (Bld) [#/Vol] 10*3/uL Normal <0.01 [facility] Comment on above: Order Comment: Speci men Type: BLOOD SPECIMENOrdering Facility: [facility] Address: [address] [place] [address] Performed By: #### 5 7021-8 ####[facility] LABORATORYCLIA [id number] [address] [place] Nucleated RBC/100 WBC (Bld) [Ratio] 0.0 /100 WBC Normal [facility] Comment on above: Order Comment: Speci men Type: BLOOD SPECIMENOrdering Facility: [facility] Address: [address] [place] [address] Performed By: #### 5 7021-8 ####[facility]ORATORYCLIA [id number] [place] [address] [place] Platelet mean volume (Bld) [Entitic vol] 10.1 fL Normal 9.0-12.7 [facility] Comment on above: Order Comment: Speci men Type: BLOOD SPECIMENOrdering Facility: [facility] Address: [address] [place] [address] Performed By: #### 5 7021-8 ####[facility]ORATORYCLIA [id number] [place] [address] [place] Platelets (Bld) [#/Vol] 201 10*3/uL Normal 150-400 [facility] Comment on above: Order Comment: Speci men Type: BLOOD SPECIMENOrdering Facility: [facility] Address: [address] [place] [address] Performed By: #### 5 7021-8 ####[facility]ORATORYCLIA [id number] [place] [address] [place] RBC (Bld) [#/Vol] 4.57 10*6/uL Normal 3.90-5.20 [facility] Comment on above: Order Comment: Speci men Type: BLOOD SPECIMENOrdering Facility: [facility] Address: [address] [place] [address] Performed By: #### 5 7021-8 ####[facility]ORATORYCLIA [id number] [address] [place] WBC (Bld) [#/Vol] 7.34 10*3/uL Normal 3.70-11.00 [facility] Comment on above: Order Comment: Speci men Type: BLOOD SPECIMENOrdering Facility: [facility] Address: [place] [address] Performed By: #### 5 7021-8 ####[facility] LABORATORYCLIA [id number] [place] [address] [place] CT CHEST W IVCONon 4 CT CHEST W IVCON * * *Final Report* * * * * * SEE BOTTOM OF REPORT FOR ADDENDED TEXT * * * DATE OF EXAM: Apr 30 2024 2:58PM [facility] 0539 - CT CHEST W IVCON / PROCEDURE REASON: Chest trauma, blunt * * * * Physician Interpretation * * * * * * * * * * * * ORIGINAL REPORT * * * * * * * * EXAMINATION: CHEST CT WITH CONTRAST CLINICAL HISTORY: Patient fell, back pain Technique: Spiral CT acquisition of the chest from the thoracic inlet to the upper abdomen following IV contrast. MQ: [id number]_6 Contrast: 50 mL Omnipaque [address] Radiation dose: Integrated Dose-length product (DLP) for this visit = 129 mGy*cm CT Dose Reduction Employed: Automated exposure control(AEC) and iterative recon Comparison: 03/20/2017 noncontrast high-resolution CT of the lungs RESULT: Limitations: None. Lines, tubes, and devices: None. Lung parenchyma and airways: No pneumothorax. Bibasilar small linear-appearing areas of consolidation are thought to be subsegmental atelectasis. Small left pleural effusion. No mass. Moderate centrilobular emphysema. Pleural space: No pleural effusion. No pleural thickening. Lower neck, lymph nodes, and mediastinum: The imaged thyroid gland is normal. No lymphadenopathy in the supraclavicular, axillary, mediastinal, or hilar regions. Heart, pericardium, and thoracic vessels: The thoracic aorta and main pulmonary artery are normal in caliber. The cardiac chambers are normal in size. coronary artery atherosclerotic calcifications are noted, although the study is not optimized for coronary assessment. No pericardial effusion or thickening. Bones and soft tissues: Compression of most of the thoracic vertebral bodies, many of which were present previously. No vertebral malalignment. Upper abdomen: No abnormality in the imaged upper abdomen. Slight thickening of both adrenal glands present previously. Localizer images: Nonspecific IMPRESSION: Thoracic vertebral compressions are probably chronic. Small left pleural effusion. Bibasilar subsegmental atelectasis. * * * * * * * * ADDENDUM #1 * * * * * * * * On further review there are slightly displaced fractures of the posterior left ninth and 10th ribs, which may account for the left pleural effusion. The effusion appears water density, however, and is most likely not hemorrhage. Record Changer Assembler: PSCB Transcribe Date/Time: Apr 30 2024 3:47P Dictated by : CAROL DE LA ROSA MD This examination was interpreted and the report reviewed and electronically signed by: CAROL DE LA ROSA MD on Apr 30 2024 3:21PM EST This document has been addended by: CAROL DE LA ROSA MD on Apr 30 2024 3:48PM EST [id number] Normal [facility] Comprehensive metabolic 2000 panelon 04-30-2024 Albumin [Mass/Vol] 4.2 g/dL Normal 3.9-4.9 [facility] Comment on above: Order Comment: Speci men Type: BLOOD SPECIMENOrdering Facility: [facility] Address: [address] [place] [address] Performed By: #### 2 4323-8, 3040-3, [id number] ####[facility] LABORATORYCLIA [id number] [place] [address] [place] ALP [Catalytic activity/Vol] 79 U/L Normal 34-123 [facility] Comment on above: Order Comment: Speci men Type: BLOOD SPECIMENOrdering Facility: [facility] Address: [address] [place] [address] Performed By: #### 2 4323-8, 3040-3, [id number] ####[facility] LABORATORYCLIA [id number] [address] [place] ALT [Catalytic activity/Vol] 11 U/L Normal 7-38 [facility] Comment on above: Order Comment: Speci men Type: BLOOD SPECIMENOrdering Facility: [facility] Address: [address] [place] [address] Performed By: #### 2 4323-8, 3040-3, [id number] ####[facility] LABORATORYCLIA [id number] [place] [address] [place] Anion gap [Moles/Vol] 13 mmol/L Normal 8-15 [facility] Comment on above: Order Comment: Speci men Type: BLOOD SPECIMENOrdering Facility: [facility] Address: [address] [place] [address] Performed By: #### 2 4323-8, 3040-3, [id number] ####[facility] LABORATORYCLIA [id number] [place] [address] [place] AST [Catalytic activity/Vol] 18 U/L Normal 13-35 [facility] Comment on above: Order Comment: Speci men Type: BLOOD SPECIMENOrdering Facility: [facility] Address: [address] [place] [address] Performed By: #### 2 4323-8, 3040-3, [id number] ####[facility] LABORATORYCLIA [id number] [place] [address] [place] Bilirubin [Mass/Vol] 0.7 mg/dL Normal 0.2-1.3 [facility] Comment on above: Order Comment: Speci men Type: BLOOD SPECIMENOrdering Facility: [facility] Address: [address] [place] [address] Performed By: #### 2 4323-8, 3040-3, [id number] ####[facility] LABORATORYCLIA [id number] [place] [address] [place] Calcium [Mass/Vol] 9.2 mg/dL Normal 8.5-10.2 [facility] Comment on above: Order Comment: Speci men Type: BLOOD SPECIMENOrdering Facility: [facility] Address: [address] [place] [address] Performed By: #### 2 4323-8, 3040-3, [id number] ####[facility] LABORATORYCLIA [id number] [place] [address] [place] Chloride [Moles/Vol] 99 mmol/L Normal 98-107 [facility] Comment on above: Order Comment: Speci men Type: BLOOD SPECIMENOrdering Facility: [facility] Address: [address] [place] [id number] Performed By: #### 2 4323-8, 3040-3, [id number] ####[facility] LABORATORYCLIA [id number] [place] [address] [place] CO2 [Moles/Vol] 24 mmol/L Normal 22-30 [facility] Comment on above: Order Comment: Speci men Type: BLOOD SPECIMENOrdering Facility: [facility] Address: [address] [place] [address] Performed By: #### 2 4323-8, 3040-3, [id number] ####[facility] LABORATORYCLIA [id number] [place] [address] [place] Creatinine [Mass/Vol] 0.62 mg/dL Normal 0.58-0.96 [facility] Comment on above: Order Comment: Speci men Type: BLOOD SPECIMENOrdering Facility: [facility] Address: [address] [place] [address] [place] [address] Performed By: #### 2 4323-8, 3040-3, [id number] ####[facility] LABORATORYCLIA [id number] [address] Creatinine and Glomerular filtration rate.predicted panel (S/P/Bld) 85 mL/min/1.73m??? Normal >=60 [facility] Comment on above: Order Comment: Speci men Type: BLOOD SPECIMENOrdering Facility: [facility] Address: [address] [place] [address] Result Comment: Roula mated Glomerular Filtration Rate (eGFR) is calculated using the 2020 CKD-EPI creatinine equation. This equation utilizes serum creatinine, sex, and age as parameters. The creatinine assay has traceable calibration to isotope dilution-mass spectrometry. Refer to KDIGO guidelines for clinical interpretation. In patients with unstable renal function, e.g. those with acute kidney injury, the eGFR may not accurately reflect actual GFR. Performed By: #### 2 4323-8, 3040-3, [id number] ####[facility] LABORATORYCLIA [id number] [place] [id number] [place] Glucose [Mass/Vol] 101 mg/dL High 74-99 [facility] Comment on above: Order Comment: Edwin caro Type: BLOOD SPECIMENOrdering Facility: [facility] Address: [address] [place], [place] [id number] Result Comment: The [place] Diabetes Association (ADA) provides guidance for cutoff values for fasting glucose and random glucose. The ADA defines fasting as no caloric intake for at least 8 hours. Fasting plasma glucose results between 100 to 125 mg/dL indicate increased risk for diabetes (prediabetes). Fasting plasma glucose results greater than or equal to 126 mg/dL meet the criteria for diagnosis of diabetes. In the absence of unequivocal hyperglycemia, results should be confirmed by repeat testing. In a patient with classic symptoms of hyperglycemia or hyperglycemic crisis, random plasma glucose results greater than or equal to 200 mg/dL meet the criteria for diagnosis of diabetes. Reference: Standards of Medical Care in Diabetes 2016, [place] [employer] Diabetes Association. Diabetes Care. 2016.39(Suppl 1). Performed By: #### 2 4323-8, 3040-3, [id number] ####[facility] LABORATORYCLIA [id number] [place] [address] [place] Potassium [Moles/Vol] 4.0 mmol/L Normal 3.7-5.1 [facility] Comment on above: Order Comment: Edwin caro Type: BLOOD SPECIMENOrdering Facility: [facility] Address: [address] [place] [address] Performed By: #### 2 4323-8, 3040-3, [id number] ####[facility] LABORATORYCLIA [id number] [place] [id number] [place] Protein [Mass/Vol] 7.0 g/dL Normal 6.3-8.0 [facility] Comment on above: Order Comment: Edwin caro Type: BLOOD SPECIMENOrdering Facility: [facility] Address: [address] [place], [place] [address] Performed By: #### 2 4323-8, 3040-3, [id number] ####[facility] LABORATORYCLIA [id number] [place] [address] [place] Sodium [Moles/Vol] 136 mmol/L Normal 136-144 [facility] Comment on above: Order Comment: Edwin men Type: BLOOD SPECIMENOrdering Facility: [facility] Address: [address] [place] [address] Performed By: #### 2 4323-8, 3040-3, [id number] ####[facility]ORATORYCLIA [id number] [address] Urea nitrogen [Mass/Vol] 10 mg/dL Normal 7-21 [facility] Comment on above: Order Comment: Speci men Type: BLOOD SPECIMENOrdering Facility: [facility] Address: [address] [place] [address] Performed By: #### 2 4323-8, 3040-3, [id number] ####[facility]ORATORYCLIA [id number] [address] ECG COMPLETEon 04-30-2024 ECG COMPLETE Ventricular Rate : 9 3 BPM Atrial Rate : 93 BPM P-R Interval : 160 ms QRS Duration : 66 ms Q-T Interval : 394 ms QTC Calculation(Bazett) : 489 ms Calculated P [place] : 11 degrees Calculated R [place] : -18 degrees Calculated T [place] : 14 degrees SINUS RHYTHM WITH PREMATURE ATRIAL COMPLEXES POSSIBLE ANTERIOR INFARCT , AGE UNDETERMINED ABNORMAL ECG 1620 no STEMI Confirmed by LAYLA MCCOY MD ([id number]), manuscript editor KAYLENE KHANNA ([id number]) on 05/01/2024 7:53:24 AM NAME : MI REEDER PID : [id number] : 1935 Gender : Female Race : ORD : [id number] Procedure Date : Apr 30 2024 16:15:39 Edit Date : May 01 2024 07:53:27 Diagnosis: SINUS RHYTHM WITH PREMATURE ATRIAL COMPLEXES POSSIBLE ANTERIOR INFARCT , AGE UNDETERMINED ABNORMAL ECG 1620 no STEMI Confirmed by LAYLA MCCOY MD ([id number]), manuscript editor KAYLENE KHANNA ([id number]) on 05/01/2024 7:53:24 AM Test Reason : Chest Pain Location : 1 : ER ED Overread By : LAYLA MCCOY MD Edited By : KAYLENE KHANNA Referred By : , Acquired by : Katina barnett [facility] ED NOTEon 04-30-2024 ED NOTE HNO ID: [id number] Author: DEENA TAMAYO RN Service: ? Author Type: Registered Nurse Type: ED Notes Filed: 04/30/2024 18:43 Note Text: Verbal phone report was provided to Karmen on . The pt remains stable for transport to the floor for admission. NAD noted at this time. Belongings list was completed. Transport was notified. [facility] ED NOTE HNO ID: [id number] Author: DEENA TAMAYO, SPENCER Service: ? Author Type: Registered Nurse Type: ED Notes Filed: 04/30/2024 18:15 Note Text: Heads up called to [facility] charge nurse (Spoke with SOCIAL SERVICES SPECIALIST) [facility] ED PROV NOTEon 04-30-2024 ED PROV NOTE HNO ID: [id number] Author: LAYLA MCCOY MD Service: ? Author Type: Physician Type: ED Provider Notes Filed: 04/30/2024 18:29 Note Text: ED Provider Note Patient Name: Mi Reeder : 1935 SERVICE DATE: 04/30/24 History Patient presents with: Back Pain: Left side of back pain after falling on Sunday; back hit the bed, head hit the wall She was seen at [place] [facility] Patient presents for uncontrolled pain after falling 2 days ago, diagnosed with left rib fractures yesterday. Patient had a negative head CT at an outside ED. She had rib fractures noted and was discharged home. Patient states she has uncontrolled pain. She denies any shortness of breath or severe pain with deep breath. No other injuries. She is not on blood thinners. PAST MEDICAL HISTORY Diagnosis Date Palmer's palsy Compression fracture of T6 vertebra (HCC) 09/22/2019 Compression fracture of T7 vertebra (HCC) 09/22/2019 Compression fracture of T8 vertebra (HCC) 09/22/2019 DDD (degenerative disc disease), lumbar 09/22/2019 Hyperlipidemia Hypertension Lumbar radiculopathy 09/22/2019 Osteoporosis Vertigo PAST SURGICAL HISTORY Procedure Laterality Date ARTHRP ACETBLR/PROX FEM PROSTC AGRFT/ALGRFT Left Hip replacement, total CHOLECYSTECTOMY HX HYSTERECTOMY due to bleeding, fibroids; no cancer HYSTERECTOMY HX OVARIAN CYSTECTOMY TONSILLECTOMY HX age 18 FAMILY HISTORY Problem Relation Age of Onset other (Stomach cancer) Mother other (Lung Cancer) Brother lung Cancer Sister Unknown type other (Liver cirrhosis) Father Alcohol abuse Asthma Paternal Grandmother Asthma Paternal Grandfather Social History Tobacco Use Smoking status: Former Packs/day: 1.00 Years: 53.00 Additional pack years: 0.00 Total pack years: 53.00 Types: Cigarettes Start date: 03/12/1953 Quit date: 05/12/2006 Years since quittin.9 Smokeless tobacco: Never Vaping Use Vaping Use: Never used Substance and Sexual Activity Alcohol use: No Drug use: No Sexual activity: Not on file ALLERGIES Allergen Reactions Amoxicillin-Pot Cla* Diarrhea Cefdinir Diarrhea Cagkujj-Moe-Ttc Red* Other: See Comments Body aches Review of Systems Constitutional: Pertinent positives and negatives as per HPI. All other systems reviewed and are negative. Physical Exam Vitals [04/30/24 1240] BP Pulse Temp Temp src Resp SpO2 Weight Height 162/91 (!) 100 36.6 ?C (97.8 ?F) Temporal 16 99 % 47.2 kg (104 lb) -- Physical Exam Vitals and nursing note reviewed. Exam conducted with a maintenance department technician present. Constitutional: General: She is not in acute distress. Appearance: Normal appearance. She is not ill-appearing. HENT: Head: Normocephalic and atraumatic. Cardiovascular: Rate and Rhythm: Normal rate and regular rhythm. Heart sounds: No murmur heard. Pulmonary: Effort: Pulmonary effort is normal. No respiratory distress. Breath sounds: Normal breath sounds. No wheezing, rhonchi or rales. Chest: Chest wall: Tenderness present. Abdominal: General: Abdomen is flat. Tenderness: There is no abdominal tenderness. There is no guarding or rebound. Musculoskeletal: General: No tenderness or deformity. Normal range of motion. Arms: Cervical back: Neck supple. No tenderness. Skin: General: Skin is warm and dry. Neurological: General: No focal deficit present. Mental Status: She is alert and oriented to person, place, and time. Sensory: No sensory deficit. Motor: No weakness. Diagnostic Testing ED Labs Ordered and Reviewed COMPREHENSIVE METABOLIC PANEL - Abnormal; Notable for the following components: Result Value Ref Range Glucose 101 (*) 74 - 99 mg/dL All other components within normal limits COMPLETE BLOOD COUNT AND DIFFERENTIAL - Abnormal; Notable for the following components: Abs Lymph 0.88 (*) 1.00 - 4.00 k/uL All other components within normal limits LIPASE - Normal Procedures ED Course / Clinical Impression ED Course as of 04/30/24 1826 Layla Mccoy's Documentation SunApr 30, 2024 1620 EKG Heart rate 93, normal sinus rhythm, normal WA and QRS duration, normal QTc interval, no fascicular, bundle branch or AV block. No ST or T-wave changes. No STEMI. EKG was independently interpreted by me. 1700 DOR[address]HY High Sensitivity(!): 13 No significant delta Clinical Impressions as of 04/30/24 1826 Multiple fractures of ribs, left side, initial encounter for closed fracture Rib pain Centrilobular emphysema (HCC) Primary hypertension MDM / Disposition / Plan Medical Decision Making: Differential includes, but is not limited to, pneumothorax, pulmonary contusion, hemothorax, pneumonia, rib fractures, ACS. Patient was given fentanyl for her pain. CT chest with contrast was performed that did show small left pleural effusion that did not appear like hemothorax but rather likely due to poor inspiration. Patient did have some left- (more content not included)... Normal [facility] HIGH SENSITIVITY TROPONIN T (INITIAL)on 04-30-2024 Troponin T.cardiac High sensitivity method [Mass/Vol] 14 ng/L High <12 [facility] Comment on above: Order Comment: Edwin caro Type: BLOOD SPECIMENOrdering Facility: [facility] Address: [address] [place] [address] [place] [address] Result Comment: When assessing risk for acute coronary syndromes: In patients undergoing blood draw greater than or equal to 2 hours from symptom onset, with history of very low to moderate risk and non-ischemic ECG, an initial hs-Troponin T less than 12 ng/L AND a 1 hour delta hs-Troponin T less than 3 ng/L should be considered very low risk for 30 day MACE. Performed By: #### 2 4323-8, 3040-3, [id number] ####[facility]ORATORYCLIA [id number] [address] STATES OF [facility] HIGH SENSITIVITY TROPONIN T (SECOND)on 04-30-2024 Troponin T.cardiac High sensitivity method [Mass/Vol] 13 ng/L High <[address] [place] [address] Comment on above: Order Comment: Edwin caro Type: BLOOD SPECIMEN [facility] Address: [facility] [place] [address] Result Comment: When assessing risk for acute coronary syndromes: In patients undergoing blood draw greater than or equal to 2 hours from symptom onset, with history of very low to moderate risk and non-ischemic ECG, an initial hs-Troponin T less than 12 ng/L AND a 1 hour delta hs-Troponin T less than 3 ng/L should be considered very low risk for 30 day MACE. Performed By: #### L [id number] #### [facility] CLIA [id number] [address] [place] HIGH SENSITIVITY TROPONIN T (THIRD) 3 HRS AFTER INITIALon 04-30-2024 Troponin T.cardiac High sensitivity method [Mass/Vol] 14 ng/L High <12 [facility] Comment on above: Order Comment: Edwin caro Type: BLOOD SPECIMENOrdering Facility: [facility] Address: [address] [place] [address] Result Comment: When assessing risk for acute coronary syndromes: In patients undergoing blood draw greater than or equal to 2 hours from symptom onset, with history of very low to moderate risk and non-ischemic ECG, an initial hs-Troponin T less than 12 ng/L AND a 1 hour delta hs-Troponin T less than 3 ng/L should be considered very low risk for 30 day MACE. Performed By: #### L [id number] ####[facility] LABORATORYCLIA [id number] [place] [address] [place] Lipase SerPl-cCncon 04-30-20 24 Lipase [Catalytic activity/Vol] 28 U/L Normal 16-61 [facility] Comment on above: Order Comment: Edwin caro Type: BLOOD SPECIMENOrdering Facility: [facility] Address: [address] [place] [address] Performed By: #### 2 4323-8, 3040-3, [id number] ####[facility] LABORATORYCLIA [id number] [place] [address] [place] XR CHEST 2V FRONTAL/LATon XR CHEST 2V FRONTAL/LAT * * *Final Report* * * DATE OF EXAM: Apr 30 2024 12:52PM MDX 5291 - XR CHEST 2V FRONTAL/LAT / PROCEDURE REASON: Other * * * * Physician Interpretation * * * * EXAMINATION: CHEST RADIOGRAPH (2 VIEW FRONTAL and LATERAL) CLINICAL HISTORY: Other, left rib fractures - worsening pain MQ: XC2_6 EXAM DATE/TIME: 04/30/2024 12:52 PM COMPARISON: 04/28/2024 left rib series. RESULT: Lines, tubes, and devices: None. Lungs and pleura: Streaky opacity at retrocardiac left lower lobe and blunted left costophrenic gutter. No pneumothorax. Cardiomediastinal silhouette: Stable cardiomediastinal silhouette. Bones and soft tissues: Bones are osteopenic and there are multiple chronic vertebral compression deformities. IMPRESSION: Small left pleural effusion. No pneumothorax. Record Changer Assembler: PSCB Transcribe Date/Time: Apr 30 2024 12:56P Dictated by : Alix LERNER MD This examination was interpreted and the report reviewed and electronically signed by: Alix LERNER MD on Apr 30 2024 1:05PM EST [id number] [facility] 04-28-2024 [facility] HNO ID: [id number] Author: SHUBHAM CAMPUZANO RT(R) Service: Radiology Author Type: Computer Applications Engineer Type: Allied Health Filed: 04/28/2024 04:29 Note Text: Radiology Service Progress Note PATIENT NAME: Mi Reeder DATE OF SERVICE: April 28, 2024 TIME: 4:29 AM PATIENT IDENTITY VERIFICATION COMPLETED USING TWO (2) IDENTIFIERS: Name and Date of confirmed by patient verbally and Name and Date of confirmed by identification band. FALL SCREENING: Has the patient had 2 falls in the last year or 1 fall with injury or currently using an Ambulatory Assistive Device (Walker, Cane, Wheelchair, Crutches, etc.)? Emergency Room Patient: Screened in ED PATIENT GENDER DATA: Female. status: : No status: N/A PATIENT RELEVANT IMPLANT DATA REVIEWED: Not Applicable PATIENT PRESENTS WITH AN IMPLANTABLE OR ATTACHED POLISHER DIAL: No RADIOLOGY DEPARTMENT: CT; Exam(s) Completed: Brain and General X-ray: Exam(s) Completed: Rib X-Ray: Left REPEATED CT BRAIN D/T MOTION PERIPHERAL IV DATA: Not applicable SIGNED BY: RT Gracia(R) April 28, 2024 4:[address] [facility] [address] BRAIN WO IVCONon 04-28-[address] BRAIN WO IVCON * * *Final Report* * * DATE OF EXAM: Apr 28 2024 4:26AM [facility] 0504 - CT BRAIN WO IVCON / PROCEDURE REASON: Head trauma, moderate-severe * * * * Physician Interpretation * * * * EXAMINATION: CT BRAIN WO IVCON CLINICAL HISTORY: Head trauma, moderate-severe. TECHNIQUE: Routine CT of the brain without IV contrast. CT Dose-Length Product (DLP): 1412.44 mGy*cm CT Dose Reduction Employed: No dose reduction techniques were required; COMPARISON: 04/23/[address] RESULT: Post-operative change: None. Acute change: No evidence of a sizable/large acute territorial brain infarct/parenchymal edema. MRI may be considered as a more sensitive modality if continued clinical concern/warranted. Hemorrhage: No evidence of acute intracranial hemorrhage. Mass Lesion / Mass Effect: There is no evidence of a sizable brain mass. No significant mass effect or extra-axial fluid collection. Chronic changes, including parenchymal: Intracranial arterial wall calcifications. Dural calcifications noted. Mild eccentric to the LEFT senescent-type basal ganglia calcifications. Patchy foci of low attenuation coefficient are present within the supratentorial white matter, which is nonspecific, but most commonly on the basis of moderate microvascular ischemia. There is generalized cerebral volume loss (up to mild-moderate in the frontoparietal regions). Ventricles: Commensurate with sulcal sizes. No hydrocephalus. Visualized paranasal sinuses: Partially imaged. Essentially clear. Other: Bilateral temporomandibular arthritic changes. No depressed skull fracture is seen. Ocular lens replacement(s). The skull/skull base show osteopenia. Tapering Machine Operator (topogram) images: Degenerative spine changes. Non-diagnostic otherwise. IMPRESSION: Brain CT shows no evidence of an acute intracranial abnormality. Chronic intracranial changes and other details above. Record Changer Assembler: PSCB Transcribe Date/Time: Apr 28 2024 4:27A Dictated by : CHAD STRICKLAND MD This examination was interpreted and the report reviewed and electronically signed by: CHAD STRICKLAND MD on Apr 28 2024 4:31AM EST [id number] Normal [facility] ED NOTEon 04-28-2024 ED NOTE HNO ID: [id number] Author: RYCH, JAYASHREE, RN Service: Emergency Medicine Author Type: Registered Nurse Type: ED Notes Filed: 04/28/2024 04:50 Note Text: Patient discharge instructions given to patient. Patient educated on discharge instructions. Patient denied having questions at this time regarding discharge instructions. Patient discharged home at this time with patient's daughter. [facility] ED NOTE HNO ID: [id number] Author: ÁNGELA PACHECO RN Service: ? Author Type: Registered Nurse Type: ED Notes Filed: 04/29/2024 09:40 Note Text: Patient Call Back Information How are you doing ? no change Did we appropriately manage your pain? Yes Did you understand your discharge instructions? Yes Did you get your prescriptions filled? Were you able to make a follow-up appointment with your physician? No Were you comfortable during your stay here? Yes Did a member of the ER nursing team round on you during your visit? Yes You will receive a patient satisfaction survey in the mail in the nest 2 weeks, please take the time to fill out the survey as your input from your ER visit is very important to us. Yes Can we do anything else to help you? No [facility] ED NOTE HNO ID: [id number] Author: JAYASHREE SINGH RN Service: Emergency Medicine Author Type: Registered Nurse Type: ED Notes Filed: 04/28/2024 04:50 Note Text: Physician at bedside. Patient's daughter at bedside. [facility] ED PROV NOTEon 04-28-2024 ED PROV NOTE HNO ID: [id number] Author: JAKE DIAZ MD Service: Emergency Medicine Author Type: Physician Type: ED Provider Notes Filed: 04/28/2024 06:28 Note Text: ED Provider Note Patient Name: Mi Reeder : 1935 SERVICE DATE: 04/28/24 History Patient presents with: Head Injury Rib Injury Patient presents to the emergency department after falling at home. Apparently she fell around 1130 this evening. She notes she hit her head as well as landing on her left side of her ribs. She notes pain with movement. Patient thinks she is on a blood thinner. She denies any loss of conscious, neck pain, back pain, chest pain, syncope, shortness of breath, abdominal pain, extremity injury, nausea, vomiting, or diarrhea. PAST MEDICAL HISTORY Diagnosis Date Palmer's palsy Compression fracture of T6 vertebra (HCC) 09/22/2019 Compression fracture of T7 vertebra (HCC) 09/22/2019 Compression fracture of T8 vertebra (HCC) 09/22/2019 DDD (degenerative disc disease), lumbar 09/22/2019 Hyperlipidemia Hypertension Lumbar radiculopathy 09/22/2019 Osteoporosis Vertigo PAST SURGICAL HISTORY Procedure Laterality Date ARTHRP ACETBLR/PROX FEM PROSTC AGRFT/ALGRFT Left Hip replacement, total CHOLECYSTECTOMY HX HYSTERECTOMY due to bleeding, fibroids; no cancer HYSTERECTOMY HX OVARIAN CYSTECTOMY TONSILLECTOMY HX age 18 FAMILY HISTORY Problem Relation Age of Onset other (Stomach cancer) Mother other (Lung Cancer) Brother lung Cancer Sister Unknown type other (Liver cirrhosis) Father Alcohol abuse Asthma Paternal Grandmother Asthma Paternal Grandfather Social History Tobacco Use Smoking status: Former Packs/day: 1.00 Years: 53.00 Additional pack years: 0.00 Total pack years: 53.00 Types: Cigarettes Start date: 03/12/1953 Quit date: 05/12/2006 Years since quittin.9 Smokeless tobacco: Never Vaping Use Vaping Use: Never used Substance and Sexual Activity Alcohol use: No Drug use: No Sexual activity: Not on file ALLERGIES Allergen Reactions Amoxicillin-Pot Cla* Diarrhea Cefdinir Diarrhea Okeikkj-Yed-Tdz Red* Other: See Comments Body aches Review of Systems Constitutional: Negative for diaphoresis and fever. HENT: Negative for rhinorrhea and sore throat. Eyes: Negative for pain and redness. Respiratory: Negative for cough and shortness of breath. Cardiovascular: Negative for chest pain and leg swelling. Gastrointestinal: Negative for abdominal pain, blood in stool, nausea and vomiting. Genitourinary: Positive for flank pain. Negative for dysuria and hematuria. Musculoskeletal: Negative for back pain and neck pain. Skin: Negative for rash and wound. Neurological: Negative for syncope and weakness. Physical Exam Vitals [04/28/24 0401] BP Pulse Temp Temp src Resp SpO2 Weight Height 142/97 (!) 92 36.3 ?C (97.3 ?F) Temporal Art 18 95 % 47.2 kg (104 lb) -- Physical Exam Vitals and nursing note reviewed. Constitutional: Appearance: Normal appearance. HENT: Head: Normocephalic and atraumatic. Nose: Nose normal. Mouth/Throat: Mouth: Mucous membranes are moist. Pharynx: Oropharynx is clear. Eyes: General: No scleral icterus. Conjunctiva/sclera: Conjunctivae normal. Pupils: Pupils are equal, round, and reactive to light. Cardiovascular: Rate and Rhythm: Normal rate and regular rhythm. Heart sounds: No murmur heard. Pulmonary: Effort: Pulmonary effort is normal. Breath sounds: Normal breath sounds. Comments: Tenderness to the left lateral posterior ribs. There are no abrasions crepitance or ecchymosis noted on exam. Chest: Chest wall: Tenderness present. Abdominal: General: Bowel sounds are normal. Palpations: Abdomen is soft. Tenderness: There is no right CVA tenderness or left CVA tenderness. Hernia: No hernia is present. Musculoskeletal: General: No swelling or tenderness. Normal range of motion. Cervical back: Normal range of motion and neck supple. No tenderness. Skin: General: Skin is warm and dry. Neurological: General: No focal deficit present. Mental Status: She is alert and oriented to person, place, and time. Psychiatric: Mood and Affect: Mood normal. Behavior: Behavior normal. Diagnostic Testing ED Labs Ordered and Reviewed - No data to display Procedures ED Course / Clinical Impression Clinical Impressions as of 04/28/24 0437 Minor head trauma Contusion of left chest wall, initial encounter MDM / Disposition / Plan Remained stable throughout ED course. CT scan of the head was unremarkable. X-ray of the chest showed no pneumothorax. There is no obvious rib fractures. Patient was to be discharged to home with outpatient follow-up. Addendum : Radiology read x-ray as minimally displaced fracture of the left rib. Clinically this will not change patient's management. Continue with conservative care Tylenol and or Motrin for pain. We (more content not included)... Normal [facility] XR RIB/CHST 3V AP RIB/OBL/CH ST Kevin 04-28-2024 XR RIB/CHST 3V AP RIB/OBL/CHST L * * *Final Report* * * DATE OF EXAM: Apr 28 2024 4:25AM LDX 5243 - XR RIB/CHST 3V AP RIB/OBL/CHST L / PROCEDURE REASON: Trauma * * * * Physician Interpretation * * * * Frontal chest and left ribs: Provided history: * 89 years old Female * Trauma Comparison Study: 05/19/2019 3 views of the left ribs were obtained including a frontal view of the chest. The heart, mediastinum, lungs and pleura appear to be within normal limits. There are mildly displaced fractures of the left and right lateral ribs. IMPRESSION: Mildly displaced fractures of left lateral ribs Record Changer Assembler: PSCTony Transcribe Date/Time: Apr 28 2024 5:00A Dictated by : ZAHIRA LOBATO MD This examination was interpreted and the report reviewed and electronically signed by: ZAHIRA LOBATO MD on Apr 28 2024 5:06AM EST [id number] Normal [facility] ALLIED HEALTHon 04-23-2024 ALLIED HEALTH HNO ID: [id number] Author: VIDAL FITZGERALD RT(R) Service: ? Author Type: Computer Applications Engineer Type: Allied Health Filed: 04/23/2024 16:19 Note Text: Radiology Service Progress Note PATIENT NAME: Mi Reeder DATE OF SERVICE: April 23, 2024 TIME: 4:19 PM PATIENT IDENTITY VERIFICATION COMPLETED USING TWO (2) IDENTIFIERS: Name and Date of confirmed by patient verbally. FALL SCREENING: Has the patient had 2 falls in the last year or 1 fall with injury or currently using an Ambulatory Assistive Device (Walker, Cane, Wheelchair, Crutches, etc.)? Emergency Room Patient: Screened in ED PATIENT GENDER DATA: Female. status: : No status: NO. PATIENT RELEVANT IMPLANT DATA REVIEWED: Yes PATIENT PRESENTS WITH AN IMPLANTABLE OR ATTACHED POLISHER DIAL: No RADIOLOGY DEPARTMENT: CT; Exam(s) Completed: Brain PERIPHERAL IV DATA: Not applicable SIGNED BY: RT Maxine(R) April 23, 2024 4:19 PM Normal [facility] Basic metabolic 2000 panelon 04-23-2024 Anion gap [Moles/Vol] 14 mmol/L Normal 9-18 [facility] Comment on above: Order Comment: Speci men Type: BLOOD SPECIMEN Ordering Facility: [facility] Address: [address] [place] [address] Performed By: #### 2 4321-2, 04293-6 #### [facility] CLIA [id number] [address] [place] [address] [place] Calcium [Mass/Vol] 10.3 mg/dL High 8.5-10.2 [facility] Comment on above: Order Comment: Speci men Type: BLOOD SPECIMEN Ordering Facility: [facility] Address: [address] [place] [address] Performed By: #### 2 4321-2, 00263-3 #### [facility] CLIA [id number] [address] [place] [address] [place] Chloride [Moles/Vol] 103 mmol/L Normal 97-105 [facility] Comment on above: Order Comment: Speci men Type: BLOOD SPECIMEN Ordering Facility: [facility] Address: [address] [place] [address] Performed By: #### 2 4321-2, 57693-9 #### [facility] CLIA [id number] [address] [place] [address] [place] CO2 [Moles/Vol] 23 mmol/L Normal 22-30 [facility] Comment on above: Order Comment: Speci men Type: BLOOD SPECIMEN Ordering Facility: [facility] Address: [address] [place] [address] Performed By: #### 2 4321-2, 02552-1 #### [facility] CLIA [id number] [address] [place] [address] [place] Creatinine [Mass/Vol] 0.65 mg/dL Normal 0.58-0.96 [facility] Comment on above: Order Comment: Speci men Type: BLOOD SPECIMEN Ordering Facility: [facility] Address: [address] [place] [address] Performed By: #### 2 4321-2, 86354-0 #### [facility] CLIA [id number] [address] [place] [address] [facility] Creatinine and Glomerular filtration rate.predicted panel (S/P/Bld) 84 mL/min/1.73m??? Normal >=60 [facility] Comment on above: Order Comment: Speci men Type: BLOOD SPECIMEN Ordering Facility: [facility] Address: [address] [place] [address] Result Comment: Roula mated Glomerular Filtration Rate (eGFR) is calculated using the 2020 CKD-EPI creatinine equation. This equation utilizes serum creatinine, sex, and age as parameters. The creatinine assay has traceable calibration to isotope dilution-mass spectrometry. Refer to KDIGO guidelines for clinical interpretation. In patients with unstable renal function, e.g. those with acute kidney injury, the eGFR may not accurately reflect actual GFR. Performed By: #### 2 4321-2, 33995-5 #### [facility] CLIA [id number] [address] [place] [address] [place] Glucose [Mass/Vol] 162 mg/dL High 74-99 [facility] Comment on above: Order Comment: Edwin caro Type: BLOOD SPECIMEN Ordering Facility: [facility] Address: [address] [place] [address] Result Comment: The [place] Diabetes Association (ADA) provides guidance for cutoff values for fasting glucose and random glucose. The ADA defines fasting as no caloric intake for at least 8 hours. Fasting plasma glucose results between 100 to 125 mg/dL indicate increased risk for diabetes (prediabetes). Fasting plasma glucose results greater than or equal to 126 mg/dL meet the criteria for diagnosis of diabetes. In the absence of unequivocal hyperglycemia, results should be confirmed by repeat testing. In a patient with classic symptoms of hyperglycemia or hyperglycemic crisis, random plasma glucose results greater than or equal to 200 mg/dL meet the criteria for diagnosis of diabetes. Reference: Standards of Medical Care in Diabetes 2016, [place] [employer] Diabetes Association. Diabetes Care. 2016.39(Suppl 1). Performed By: #### 2 4321-2, 35918-6 #### [facility] CLIA [id number] [address] [place] [address] [place] Potassium [Moles/Vol] 3.6 mmol/L Low 3.7-5.1 [facility] Comment on above: Order Comment: Edwin caro Type: BLOOD SPECIMEN Ordering Facility: [facility] Address: [address] [place] [address] Performed By: #### 2 4321-2, 57801-0 #### [facility] CLIA [id number] [address] [place] [address] [place] [facility] Sodium [Moles/Vol] 140 mmol/L Normal 136-144 [facility] Comment on above: Order Comment: Speci men Type: BLOOD SPECIMEN Ordering Facility: [facility] Address: [address] [place] [address] Performed By: #### 2 4321-2, 40822-8 #### [facility] CLIA [id number] [address] [place] [address] [place] Urea nitrogen [Mass/Vol] 7 mg/dL Normal 7-21 [facility] Comment on above: Order Comment: Speci men Type: BLOOD SPECIMEN Ordering Facility: [facility] Address: [address] [place] [address] Performed By: #### 2 4321-2, 18097-3 #### [facility] CLIA [id number] [address] [place] [id number] [place] CBC panel Auto (Bld)on 04-23 Erythrocyte distribution width (RBC) [Ratio] 12.4 % Normal 11.5-15.0 [facility] Comment on above: Order Comment: Speci men Type: BLOOD SPECIMEN Ordering Facility: [facility] Address: [address] [place] [address] Performed By: #### 5 8410-2 #### [facility] CLIA [id number] [address] [place] [address] [place] Hematocrit (Bld) [Volume fraction] 44.2 % Normal 36.0-46.0 [facility] Comment on above: Order Comment: Speci men Type: BLOOD SPECIMEN Ordering Facility: [facility] Address: [address] [place] [address] Performed By: #### 5 8410-2 #### [facility] CLIA [id number] [address] [place] [address] [place] Hemoglobin (Bld) [Mass/Vol] 14.7 g/dL Normal 11.5-15.5 [facility] Comment on above: Order Comment: Speci men Type: BLOOD SPECIMEN Ordering Facility: [facility] Address: [address] [place] [address] Performed By: #### 5 8410-2 #### [facility] CLIA [id number] [address] [place] [address] [place] [facility] MCH (RBC) [Entitic mass] 31.7 pg Normal 26.0-34.0 [facility] Comment on above: Order Comment: Speci men Type: BLOOD SPECIMEN Ordering Facility: [facility] Address: [address] [place] [address] Performed By: #### 5 8410-2 #### [facility] CLIA [id number] [address] [place] [address] [place] MCHC (RBC) [Mass/Vol] 33.3 g/dL Normal 30.5-36.0 [facility] Comment on above: Order Comment: Speci men Type: BLOOD SPECIMEN Ordering Facility: [facility] Address: [address] [place] [address] Performed By: #### 5 8410-2 #### [facility] CLIA [id number] [address] [place] MCV (RBC) [Entitic vol] 95.5 fL Normal 80.0-100.0 [facility] Comment on above: Order Comment: Speci men Type: BLOOD SPECIMEN Ordering Facility: [facility] Address: [address] [place] [address] Performed By: #### 5 8410-2 #### [facility] CLIA [id number] [address] [place] [address] [facility] Platelet mean volume (Bld) [Entitic vol] 10.8 fL Normal 9.0-12.7 [facility] Comment on above: Order Comment: Speci men Type: BLOOD SPECIMEN Ordering Facility: [facility] Address: [address] [place] [address] Performed By: #### 5 8410-2 #### [facility] CLIA [id number] [address] [place] [address] [place] Platelets (Bld) [#/Vol] 207 10*3/uL Normal 150-400 [facility] Comment on above: Order Comment: Speci men Type: BLOOD SPECIMEN Ordering Facility: [facility] Address: [address] [place] [address] Performed By: #### 5 8410-2 #### [facility] CLIA [id number] [address] [place] [address] [place] RBC (Bld) [#/Vol] 4.63 10*6/uL Normal 3.90-5.20 [facility] Comment on above: Order Comment: Speci men Type: BLOOD SPECIMEN Ordering Facility: [facility] Address: [address] [place] [address] Performed By: #### 5 8410-2 #### [facility] CLIA [id number] [address] [place] [address] [facility] WBC (Bld) [#/Vol] 5.51 10*3/uL Normal 3.70-11.00 [facility] Comment on above: Order Comment: Speci men Type: BLOOD SPECIMEN Ordering Facility: [facility] Address: [address] [place] [address] Performed By: #### 5 8410-2 #### [facility] CLIA [id number] [address] [place] [address] [facility] [address] BRAIN WO IVCONon 04-23-[address] BRAIN WO IVCON * * *Final Report* * * DATE OF EXAM: Apr 23 2024 4:18PM [facility] 0504 - CT BRAIN WO IVCON / PROCEDURE REASON: Dizziness, non-specific * * * * Physician Interpretation * * * * EXAMINATION: CT BRAIN WO IVCON CLINICAL HISTORY: The patient presents with dizziness. TECHNIQUE: Serial axial images without IV contrast were obtained from the vertex to the foramen magnum. MQ: CTBWO_3 CT Radiation dose: Integrated Dose-Length Product (DLP) for this visit = 706.22 mGy*cm CT Dose Reduction Employed: No dose reduction techniques were required COMPARISON: 09/18/2016 RESULT: Localizer images: No additional significant findings Post-operative change: None. Acute change: No evidence of an acute infarct or other acute parenchymal process. Hemorrhage: No evidence of acute intracranial hemorrhage. ECASS hemorrhagic transformation score: Not Applicable Mass Lesion / Mass Effect: There is no evidence of an intracranial mass or extraaxial fluid collection. No significant mass effect. Chronic change: Patchy foci of low attenuation coefficient are present within the supratentorial white matter which is a nonspecific finding but likely represents moderate microvascular ischemia. Parenchyma: There is no significant volume loss. The brain parenchyma is otherwise within normal limits for age. Ventricles: The ventricles are within normal limits of size and configuration for age. Paranasal sinuses and skull base: The visualized paranasal sinuses are grossly clear. The skull base and imaged soft tissues are unremarkable. IMPRESSION: No CT evidence of acute intracranial process. Moderate chronic microvascular ischemic change throughout the supratentorial white matter. Record Changer Assembler: VENUS Transcribe Date/Time: Apr 23 2024 5:02P Dictated by : CARLOS HESS MD This examination was interpreted and the report reviewed and electronically signed by: CARLOS HESS MD on Apr 23 2024 5:10PM EST [id number] Normal [facility] ECG COMPLETEon 04-23-2024 ECG COMPLETE Ventricular Rate : 1 00 BPM Atrial Rate : 100 BPM P-R Interval : 162 ms QRS Duration : 72 ms Q-T Interval : 372 ms QTC Calculation(Bazett) : 479 ms Calculated P [place] : 20 degrees Calculated R [place] : -5 degrees Calculated T [place] : 46 degrees NORMAL SINUS RHYTHM CANNOT RULE OUT ANTERIOR INFARCT , AGE UNDETERMINED ABNORMAL ECG NO PREVIOUS ECGS AVAILABLE Confirmed by MD LOPEZ VINAY ([id number]) on 04/23/2024 5:57:32 PM NAME : MI REEDER PID : [id number] : 1935 Gender : Female Race : ORD : [id number] Procedure Date : Apr 23 2024 14:54:58 Edit Date : Apr 23 2024 17:57:32 Diagnosis: NORMAL SINUS RHYTHM CANNOT RULE OUT ANTERIOR INFARCT , AGE UNDETERMINED ABNORMAL ECG NO PREVIOUS ECGS AVAILABLE Confirmed by MD LOPEZ VINAY ([id number]) on 04/23/2024 5:57:32 PM Test Reason : Chest Pain Location : 191 : [facility] ED Overread By : MD LOPEZ VINAY Edited By : MD LOPEZ VINAY Referred By : , Acquired by : SHEILA SHAW [facility] ED NOTEon 04-23-2024 ED NOTE HNO ID: [id number] Author: GEMMA MANUEL RN Service: Emergency Medicine Author Type: Registered Nurse Type: ED Notes Filed: 04/24/2024 08:27 Note Text: Patient Call Back Information How are you doing ? better Did we appropriately manage your pain? Yes Did you understand your discharge instructions? Yes Did you get your prescriptions filled? Yes Were you able to make a follow-up appointment with your physician? Yes Were you comfortable during your stay here? Yes Did a member of the ER nursing team round on you during your visit? Yes You will receive a patient satisfaction survey in the mail in the nest 2 weeks, please take the time to fill out the survey as your input from your ER visit is very important to us. Yes Can we do anything else to help you? No [facility] ED NOTE HNO ID: [id number] Author: LEN ESTRADA RN Service: ? Author Type: Registered Nurse Type: ED Notes Filed: 04/23/2024 18:03 Note Text: D/c instructions reviewed with pt who verbalized understanding. Pt's vss and left ER ual and in stable condition with family [facility] ED NOTE HNO ID: [id number] Author: LNE ESTRADA RN Service: ? Author Type: Registered Nurse Type: ED Notes Filed: 04/23/2024 14:54 Note Text: Pt comes to ER with son c/o dizziness, shakiness and high blood pressure that started today. Pt ambulates independently with cane. She does not report falls. She states that she was prescribed amlodipine but it made her dizzy so she stopped taking it 1 week ago. She is AANDOx3, vss. Will continue to monitor. [facility] ED PROV NOTEon 04-23-2024 ED PROV NOTE HNO ID: [id number] Author: KRISTEN FALCON MD Service: Emergency Medicine Author Type: Physician Type: ED Provider Notes Filed: 04/23/2024 19:16 Note Text: ED Provider Note Patient Name: Mi Reeder : 1935 SERVICE DATE: 04/23/24 History Patient presents with: Dizziness Patient with past history of high blood pressure, presents to the emergency department with her son, for concerns over high blood pressure, dizziness and weakness. Patient states she went to [facility] with the same symptoms last week and was discharged home and was feeling well until today. Patient was recently started on amlodipine by her PCP, however she only took 1 dose, because she did not like the side effects. Patient denies chest pain palpitations or dyspnea. Patient states she feels unsteady on her feet like her legs are going to give out and are weak on her. Patient denies headache. Patient does admit to significant caffeine intake, she states she drinks 1 pot of coffee today, and she occasionally has a V8 energy drink with caffeine which she had today. Patient admits to significant stress with neighbors at her house. Weakness Severity: Mild Onset quality: Gradual Timing: Intermittent Progression: Waxing and waning Chronicity: New Associated symptoms: abdominal pain Associated symptoms: no cough, no diarrhea, no fatigue, no headaches, no myalgias, no nausea, no shortness of breath and no vomiting PAST MEDICAL HISTORY Diagnosis Date Palmer's palsy Compression fracture of T6 vertebra ([facility]) 09/22/2019 Compression fracture of T7 vertebra ([facility]) 09/22/2019 Compression fracture of T8 vertebra ([facility]) 09/22/2019 DDD (degenerative disc disease), lumbar 09/22/2019 Hyperlipidemia Hypertension Lumbar radiculopathy 09/22/2019 Osteoporosis Vertigo PAST SURGICAL HISTORY Procedure Laterality Date ARTHRP ACETBLR/PROX FEM PROSTC AGRFT/ALGRFT Left Hip replacement, total CHOLECYSTECTOMY HX HYSTERECTOMY due to bleeding, fibroids; no cancer HYSTERECTOMY HX OVARIAN CYSTECTOMY TONSILLECTOMY HX age 18 FAMILY HISTORY Problem Relation Age of Onset other (Stomach cancer) Mother other (Lung Cancer) Brother lung Cancer Sister Unknown type other (Liver cirrhosis) Father Alcohol abuse Asthma Paternal Grandmother Asthma Paternal Grandfather Social History Tobacco Use Smoking status: Former Packs/day: 1.00 Years: 53.00 Additional pack years: 0.00 Total pack years: 53.00 Types: Cigarettes Start date: 03/12/1953 Quit date: 05/12/2006 Years since quittin.9 Smokeless tobacco: Never Vaping Use Vaping Use: Never used Substance and Sexual Activity Alcohol use: No Drug use: No Sexual activity: Not on file ALLERGIES Allergen Reactions Amoxicillin-Pot Cla* Diarrhea Cefdinir Diarrhea Jwaizwj-Kfs-Kmh Red* Other: See Comments Body aches Review of Systems Constitutional: Negative for fatigue. Respiratory: Negative for cough and shortness of breath. Gastrointestinal: Positive for abdominal pain. Negative for diarrhea, nausea and vomiting. Musculoskeletal: Negative for myalgias. Neurological: Positive for weakness. Negative for headaches. Psychiatric/Behavioral: Positive for agitation. The patient is nervous/anxious. All other systems reviewed and are negative. Physical Exam Vitals [04/23/24 1444] BP Pulse Temp Temp src Resp SpO2 Weight Height 172/108 (!) 114 36.8 ?C (98.2 ?F) Temporal 20 98 % 47.2 kg (104 lb) -- Physical Exam Vitals and nursing note reviewed. Constitutional: General: She is not in acute distress. Appearance: Normal appearance. She is not ill-appearing or toxic-appearing. HENT: Head: Normocephalic and atraumatic. Mouth/Throat: Mouth: Mucous membranes are moist. Pharynx: No oropharyngeal exudate or posterior oropharyngeal erythema. Eyes: General: Right eye: No discharge. Left eye: No discharge. Extraocular Movements: Extraocular movements intact. Pupils: Pupils are equal, round, and reactive to light. Cardiovascular: Rate and Rhythm: Normal rate and regular rhythm. Pulses: Normal pulses. Heart sounds: No murmur heard. Pulmonary: Effort: No respiratory distress. Abdominal: General: There is no distension. Tenderness: There is no abdominal tenderness. There is no right CVA tenderness, left CVA tenderness or guarding. Musculoskeletal: Cervical back: Normal range of motion and neck supple. No rigidity or tenderness. Right lower leg: No edema. Left lower leg: No edema. Lymphadenopathy: Cervical: No cervical adenopathy. Skin: General: Skin is warm and dry. Neurological: General: No focal deficit present. Mental Status: She is alert and oriented to person, place, and time. Mental status is at baseline. Psychiatric: Mood and Affect: Mood normal. Behavior: Behavior normal. Diagnostic Testing ED Labs Ordered and Reviewed BASIC METABOLIC PANEL (more content not included)... Normal [facility] HIGH SENSITIVITY TROPONIN To n 04-23-2024 Troponin T.cardiac High sensitivity method [Mass/Vol] 13 ng/L High <12 [facility] Comment on above: Order Comment: Edwin caro Type: BLOOD SPECIMEN Ordering Facility: [facility] Address: [address] [place] [address] Result Comment: When assessing risk for acute coronary syndromes: In patients undergoing blood draw greater than or equal to 2 hours from symptom onset, with history of very low to moderate risk and non-ischemic ECG, an initial hs-Troponin T less than 12 ng/L AND a 1 hour delta hs-Troponin T less than 3 ng/L should be considered very low risk for 30 day MACE. Performed By: #### H STNT #### [facility] CLIA [id number] [address] [place] [address] [place] Troponin T.cardiac High sensitivity method [Mass/Vol] 13 ng/L High <12 [facility] Comment on above: Order Comment: Edwin caro Type: BLOOD SPECIMEN Ordering Facility: [facility] Address: [address] [place] [address] Result Comment: When assessing risk for acute coronary syndromes: In patients undergoing blood draw greater than or equal to 2 hours from symptom onset, with history of very low to moderate risk and non-ischemic ECG, an initial hs-Troponin T less than 12 ng/L AND a 1 hour delta hs-Troponin T less than 3 ng/L should be considered very low risk for 30 day MACE. Performed By: #### H STNT #### [facility] CLIA [id number] [address] [place] [address] [place] NT-proBNP [facility] 04-23 Natriuretic peptide.B prohormone N-Terminal [Mass/Vol] 89 pg/mL Normal <450 [facility] Comment on above: Order Comment: Edwin caro Type: BLOOD SPECIMEN Ordering Facility: [facility] Address: [address] [place] [address] Performed By: #### 2 4321-2, 38857-3 #### [facility] CLIA [id number] [address] [place] [address] [facility] Urinalysis complete panel (U )on 04-23-2024 Bilirubin Ql (U) Negative Normal Negative [facility] Comment on above: Order Comment: Speci men Type: URINE SPECIMEN Ordering Facility: [facility] Address: [address] [place] [address] Performed By: #### 2 4356-8 #### [facility] CLIA [id number] [address] [place] [address] [facility] Clarity (Unsp spec) Clear Normal Clear [facility] Comment on above: Order Comment: Speci men Type: URINE SPECIMEN Ordering Facility: [facility] Address: [address] [place] [address] Performed By: #### 2 4356-8 #### [facility] CLIA [id number] [address] [place] [address] [facility] Color (U) Yellow Normal Yellow [facility] Comment on above: Order Comment: Speci men Type: URINE SPECIMEN Ordering Facility: [facility] Address: [address] [place] [address] Performed By: #### 2 4356-8 #### [facility] CLIA [id number] [address] [place] [address] [facility] Glucose Test strip (U) [Mass/Vol] Negative Normal Negative [facility] Comment on above: Order Comment: Speci men Type: URINE SPECIMEN Ordering Facility: [facility] Address: [address] [place] [address] Performed By: #### 2 4356-8 #### [facility] CLIA [id number] [address] [place] [address] [facility] Hemoglobin Ql (U) Trace Abnormal Negative [facility] Comment on above: Order Comment: Speci men Type: URINE SPECIMEN Ordering Facility: [facility] Address: [address] [place] [address] Performed By: #### 2 4356-8 #### [facility] CLIA [id number] [address] [place] [address] [place] Ketones Ql (U) Negative Normal Negative [facility] Comment on above: Order Comment: Speci men Type: URINE SPECIMEN Ordering Facility: [facility] Address: [address] [place] [address] Performed By: #### 2 4356-8 #### [facility] CLIA [id number] [address] [place] [address] [place] Leukocyte esterase Test strip Ql (U) Negative Normal Negative [facility] Comment on above: Order Comment: Speci men Type: URINE SPECIMEN Ordering Facility: [facility] Address: [address] [place] [address] Performed By: #### 2 4356-8 #### [facility] CLIA [id number] [address] [place] [address] [place] Nitrite Ql (U) Negative Normal Negative [facility] Comment on above: Order Comment: Speci men Type: URINE SPECIMEN Ordering Facility: [facility] Address: [address] [place] [address] Performed By: #### 2 4356-8 #### [facility] CLIA [id number] [address] [place] [address] [place] pH (U) 7.0 [pH] Normal 5.0-8.0 [facility] Comment on above: Order Comment: Speci men Type: URINE SPECIMEN Ordering Facility: [facility] Address: [address] [place] [address] Performed By: #### 2 4356-8 #### [facility] CLIA [id number] [address] [place] [address] [place] Protein (U) [Mass/Vol] Negative Normal Negative [facility] Comment on above: Order Comment: Speci men Type: URINE SPECIMEN Ordering Facility: [facility] Address: [address] [place] [address] Performed By: #### 2 4356-8 #### [facility] CLIA [id number] [address] RBC LM.HPF (Urine sed) [#/Area] 0-3 /HPF Normal 0-3 /HPF [facility] Comment on above: Order Comment: Speci men Type: URINE SPECIMEN Ordering Facility: [facility] Address: [address] [place] [address] Performed By: #### 2 4356-8 #### [facility] CLIA [id number] [address] Specific gravity (U) [Rel density] 1.010 Normal 1.005-1.030 [facility] Comment on above: Order Comment: Speci men Type: URINE SPECIMEN Ordering Facility: [facility] Address: [address] [place] [address] Performed By: #### 2 4356-8 #### [facility] CLIA [id number] [address] [place] [address] Urobilinogen Ql (U) 0.2 EU/dL Normal 0.2-1.0 EU/dL [facility] Comment on above: Order Comment: Speci men Type: URINE SPECIMEN Ordering Facility: [facility] Address: [address] [place] [address] Performed By: #### 2 4356-8 #### [facility] CLIA [id number] [address] [place] [address] WBC LM.HPF (Urine sed) [#/Area] 0-5 /HPF Normal 0-5 /HPF [facility] Comment on above: Order Comment: Speci men Type: URINE SPECIMEN Ordering Facility: [facility] Address: [address] [place] [address] Performed By: #### 2 4356-8 #### [facility] CLIA [id number] [address] [place] [address] CNOVon 03-24-2022 CNOV Office Visit (ORMDNA ) -------- MI REEDER ([id number]) 1935 F Date Time Provider Department 03/24/22 1:00 PM CHARITO HUBBARD During your visit today, we recorded the following information about you: Charito Hubbard MD 04/03/2022 9:48 PM Signed POST OP Ms. Reeder presents today for [...] Impression: IMPRESSION: Stable LEFT total hip arthroplasty Record Changer Assembler: VENUS Transcribe Date/Time: Mar 24 2022 2:13P [...] Follow-up 3 years for repeat clinical/radiographic evaluation Charito Hubbard MD Referring Provider: CHARITO HUBBARD [[id number]] Allergies As of Date: 03/24/2022 Noted Allergy Reaction AMOXICILLIN-POT CLAVULANATE 07/26/2015 6 - Diarrhea CEFDINIR 01/19/2017 6 - Diarrhea BCHIYGX-IRL-BAE REDUCTASE INHIBIT*07/26/2015 14 - Other: See Comments Comments: Body aches Date Reviewed: 03/24/2022 Reviewed by: Kaley Thomas Ct - Fully Assessed Reason for Visit: Follow Up [171] Hip Replacement [324] Primary Visit Diagnosis:Aftercare following left hip joint replacement surgery [Z47.1, Z96.642] Prescriptions as of 04/03/2022 - ALPRAZolam (XANAX) 0.25 mg tablet TAKE 1 TABLET BY MOUTH AT BEDTIME NEEDED FOR ANXIETY - losartan (COZAAR) 100 mg tablet Take [...] once daily. Problem List As Of Date 03/24/2022 Noted Resolved Hyperlipidemia [E78.5] 04/28/2013 HTN (hypertension) [...] Nocturnal hypoxia [G47.34] 03/27/2018 Aftercare [Z51.89] 03/27/2018 Disposition: Return in about 3 years (around 03/24/2025). Follow-up and Disposition History for Encounter Date Provider Department Center 03/24/2022 [id number], PATR (more content not included)... Normal [facility] XR HIP 2V AP/LAT LEFT ([place] ,[place])on 03-24-2022 [facility] Encounters Encounter Date Encounter Type Care Provider Facility Start: 04-30-2024 End: 05-01-2024 ambulatory JJ JAMISON Facility:[facility] Start: 04-28-2024 End: 04-28-2024 Emergency department patient visit JJ JAMISON Facility:[facility] Start: 04-23-2024 End: 04-23-2024 Emergency department patient visit JJ JAMISON Facility:[facility] Start: 03-24-2022 End: 03-24-2022 Subsequent hospital visit by physician [facility] Mabel Wharton Work Phone: Radiology Comment on above: Pain in left hip [M2 5.552] Procedures Date Procedure Procedure Detail Performing Clinician Start: 03-24-2022 Radex hip unilateral with pelvis 2-3 views Carlos Torres PA-C Work Phone: Plan of Treatment Date Care Activity Detail Author Start: 12-24-2022 Urine microalbumin profile DTAP,TDAP ,TD (2 - Tdap) [facility] Start: 07-27-2022 Influenza vaccination INFLUENZA (Sea son Ended) [facility] Start: 04-02-2022 DIABETES SCREEN DIABETES SCREEN [facility] Start: 11-26-2021 ADVANCE DIRECTIVE DISCUSSION ADVANCE DIRECTIVE DISCUSSION [facility] Start: 08-28-2021 COVID-19 VACCINE (3 - Booster for Moderna series) COVID-19 VACCINE (3 - Booster for Moderna series) [facility] Start: 02-12-2014 SHINGRIX VACCINE (2 of 3) FLANNERY GRIX VACCINE (2 of 3) [facility] Immunizations Immunization Date Immunization Notes Care Provider Cain leonardo 09-02-2019 influenza, high dose seasonal, preservative-free [employer] Work Phone: [facility] 08-27-2019 influenza, injectabl e, quadrivalent, contains preservative [employer] Work Phone: [facility] 05-21-2019 zoster vaccine, recombinant, adjuvanted, (SHINGRIX) 50 mcg/0.5 mL injection [employer] Work Phone: [facility] Work Phone: Comment on above: 0.5ml IM at month 0 and then in 2-6 months 08-23-2018 influenza, high dose seasonal, preservative-free [employer] Work Phone: [facility] 08-23-2017 influenza, high dose seasonal, preservative-free [employer] Work Phone: [facility] 09-19-2016 influenza, high dose seasonal, preservative-free [employer] Work Phone: [facility] 09-07-2015 influenza, high dose seasonal, preservative-free [employer] Work Phone: [facility] 09-07-2015 influenza, seasonal, injectable [employer] Work Phone: [facility] 07-27-2015 pneumococcal conjuga te vaccine, 13 valent [employer] Work Phone: [facility] Work Phone: 12-18-2013 zoster vaccine, live [facility] Work Phone: [facility] Work Phone: 12-24-2012 diphtheria, tetanus toxoids and acellular pertussis vaccine [employer] Work Phone: [facility] 12-24-2012 pneumococcal polysaccharide vaccine, 23 valent [employer] Work Phone: [facility] Payers Date Payer Category Payer Medicare [id number] 2015 Unknown [employer]MENT [id number] 2015-Present [phone] [address] [place] [address] Indemnity [id number] 2003 Medicare MEDICARE MEDICAR E A AND B [id number] 2003-Present [phone] [address] [address] [place] [address] Medicare [id number] Social History Date Type Detail Facility Start: 11-01-2012 [facility] Work Phone: Start: [birth year]12-1953 End: 05-12-2006 History of tobacco use Current smoker [facility] Work Phone: Start: 03-12-1953 End: 05-12-2006 History of tobacco use Cigarette Smoker [facility] Work Phone: Start: 11-01-2012 Cigarettes smoked current (pack per day) - Reported 1 [facility] Start: 11-01-2012 Tobacco use and exposure Smokeless tobacco non-user [facility] Work Phone: Start: 10-13-2019 Alcohol intake 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-dr 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 alcohol (finding) [facility] Start: 1935 Sex Assigned At Not on file C [facility] Start: 03-14-2022 End: 03-24-2022 Exposure to SARS-CoV-2 (event) Not sure [facility] Medical Equipment Procedure Code Equipment Code Equipment Origin al Text Equipment Identifier Dates Cement Simplex P Bone Radiopaque Full Dose Sterile - [id number] Start: 03-24-2018 Cement Simplex P Bone Radiopaque Full Dose Sterile - [id number] Start: 03-24-2018 Shell 48mm C Hemispherical Tritanium Acetabular Primary Rim Cluster Hole - [id number] Start: 03-24-2018 Liner Mdm 36mm C Cocr Acetabular 2 Mobility Modular Hip - [id number] Start: 03-24-2018 Stem Accolade 12 7d 6 49mm Offset 158mm 37mm Femoral Cemented Neck Hip - [id number] Start: 03-24-2018 Insert Mobile Be aring Hip X3 Acetabular Anatomic Dual Mobility Modular 22.2 - [id number] Start: 03-24-2018 Head V40 Lfit 22 mm +0mm Offset Taper Cocr Femoral Primary Hip - [id number] Start: 03-24-2018 Spacer Accolade C 14mm Large Femoral Ring Style Cemented 6 7 Stem Hip - [id number] Start: 03-24-2018 Goals Date Patient Goal Desired Activity /State Comment on above: Formatting of this n ote might be different from the original. Continue to do well overall and live with back pain. Clinical Notes 03-24-2018 to 05-01-2024 BOZENA Thurman - 03/24/2022 12:45 PM EDT Note Date & Type Note Facility 05-01-2024 Note HNO ID: [id number] Author: NUVIA PALENCIA RN Service: Care Management Author Type: Registered Nurse Type: Care Mgt Progress Note Filed: 05/01/2024 15:46 Note Text: CARE MANAGEMENT DISCHARGE NOTE SERVICE DATE: May 01, 2024 SERVICE TIME: 3:44 PM Admission Date: 04/30/2024 LOS: 0 days Discharge Arrangement Discharge Arrangement: Home with Self Care Caregiver Assessment Caregiver is ready, willing and able to meet the patient's needs as recommended by the inter-professional team: No Caregiver needed Transportation Arrangements Transportation Arrangements: Car Date of Trip: 05/01/24 Handoff Communication: Handoff to: Primary Care Physician Primary Care Physician Name/Phone: Jj Jamison APRN.ORLIN/[phone] Discharge order is written. RN ZURI met with the patient at bedside and spoke to her daughter Fatoumata via phone regarding discharge plans. Both are agreeable to discharge home today. Daughter to provide transport. SIGNATURE: Nuvia Palencia RN PATIENT NAME: Mi Reeder DATE: May 01, 2024 TIME: 3:43 PM CONTACT #: [phone] [facility] 05-01-2024 Note HNO ID: [id number] Author: NUVIA PALENCIA RN Service: Care Management Author Type: Registered Nurse Type: Care Mgt Initial Assessment Filed: 05/01/2024 10:18 Note Text: CARE MANAGEMENT: ASSESSMENT AND DISCHARGE PLAN SERVICE DATE: May 01, 2024 SERVICE TIME: 10:13 AM PCP: Jj Jamison APRN.CNP Primary Contact: Extended Emergency Contact Information Primary Emergency Contact: Fatoumata Ortega Relation: Child Admission Status: Observation Insurance Provider: UHC AARP MEDICARE HMO Discharge Planning requested by: Per Department Practice Potential Transition Plans Home;Home Care;Home OT/PT;Long-Term Facility/Intermediate Care Facility;To Be Determined Advance Directives Current Advance Directive: Health Care Power of Lunchroom Mother;Living Will In Chart: No Corporate Sales Representative Attempted to Assist with AD Completion: Yes Action: Education Provided Current Living Arrangements and Support Lives with: Alone Type of Residence: Mobile Home Does the patient have to climb stairs at home?: stairs outside the home Support: Children How do you manage to accomplish the following: Independent: Ambulation;Bathe/Shower;Dress;Meals /Meal Prep;Going to the bathroom;Medication Management;Transportation to appointments/community Current Services/Equipment Current Post-Acute Service(s): DME Current DME Type: Cane Discharge Planning Patient Goal(s): Be able to go home, General wellness, Better mobility, Less pain [place] of Choice Explained: [place] of [place] Given: No Reason Not Given: Unable to complete with this assessment - revisit Are you interested in bedside delivery of your medications? No, preferred community Pharmacy is [email or web address]. Discharge Planning Participant(s): Patient Caregiver Assessment: Caregiver is ready, willing and able to meet the patient's needs as recommended by the inter-professional team: Other: See Comment (TBD) Transport at Discharge: Transportation Arrangements: To Be Determined Needs Prior to Discharge: Needs Prior to Discharge: To Be Determined;Accepting Facility;Facility or Agency Choices;Home Care Order;OT/PT Evaluation;Precertification;Other: See Comment (Medical Clearance) Post-Acute Discharge Plan: EMR reviewed and CM assessment complete. 89 year old patient admitted to Observation bed for multiple rib fractures. RN CM met with the patient at bedside to discuss discharge planning needs. 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 The patient stated she still drives and uses a cane to assist with mobility at baseline. Her daughter lives close by and is able to assist as needed. PT and OT evals are pending. CM assigned will continue to follow. SIGNATURE: Nuvia Palencia RN PATIENT NAME: Mi Reeder DATE: May 01, 2024 TIME: 10:13 AM CONTACT #: [phone] [facility] 04-03-2022 Note HNO ID: [id number] Author: Charito Hubbard MD Service: ? Author Type: Physician [...] Impression: IMPRESSION: Stable LEFT total hip arthroplasty Record Changer Assembler: VENUS Transcribe Date/Time: Mar 24 2022 2:13P [...] Follow-up 3 years for repeat clinical/radiographic evaluation Charito Hubbard MD [facility] 03-24-2022 History of Present illness Narrative Radiology [...] 2022 1:06 PM documented in this encounter [facility] 08-03-2021 Note Patient Outreach (FA MPST) MI REEDER ([id number]) 1935 F Date Time Provider Department 08/03/21 [...] santana name is Reema Rome RN your Economics Analyst from Jj Jamison APRN.CNP office at the [facility]. I am reaching out today because I noticed it has been a few weeks since I have seen any responses from you on your questionnaire. I wanted to check on you and make sure you are doing well, and to remind you that your Jj Jamison APRN.CNP recommended this program for you so that you can stay better connected to your health. I will be monitoring your responses on the questionnaire to make sure we are not seeing any changes in your health that your Primary Care Physician needs to know about, or looking for improvements and keeping Jj L Jamison, SECRET SERVICE AGENT.SPD TECH informed about it all. You and I [...] not see Dr. Noble anymore. Reema Rome regional company truck driverGathering Machine Feeder [phone] Allergies As of Date: 08/03/2021 Noted Allergy Reaction AMOXICILLIN-POT CLAVULANATE 07/26/2015 6 - Diarrhea CEFDINIR 01/19/2017 6 - Diarrhea UCPWZIX-GCK-QVC REDUCTASE INHIBIT*07/26/2015 14 - Other: See Comments [...] Encounter Status:Closed by REEMA ROME on 08/03/21 [facility] 08-03-2021 Note HNO ID: [id number] Author: Reema Rome RN Service: ? Author Type: Registered Nurse Type: Progress Notes Filed: 08/03/2021 9:58 AM Note Text: inSight CDM Engagement Provider Action/FYI: Patient does not even see Dr. Noble anymore Updated PCP and removed from Insight program Contact Made with Patient: Yes Patient identified by name and . Discussed care with patient Robbie santana name is Reema Rome RN your Economics Analyst from Jj Jamison APRN.CNP office at the [facility]. I am reaching out today because I noticed it has been a few weeks since I have seen any responses from you on your questionnaire. I wanted to check on you and make sure you are doing well, and to remind you that your Jj Jamison APRN.CNP recommended this program for you so that you can stay better connected to your health. I will be monitoring your responses on the questionnaire to make sure we are not seeing any changes in your health that your Primary Care Physician needs to know about, or looking for improvements and keeping Jj Jamison APRN.CNP informed about it all. You and [...] see Dr. Noble anymore. Reema Rome RN Gathering Machine Feeder [phone] [facility] 07-14-2021 Note HNO ID: [id number] Author: Quinton Maciel RN Service: ? Author Type: Registered Nurse Type: Progress Notes Filed: 07/14/2021 4:02 PM Note Text: INSIGHT CDM TELEPHONIC OUTREACH [...] like to speak with a social work marine steam fitter to help give you support for any [...] you up for automated weekly questionnaires through [employer]. This is an easy way for us [...] the Track Pt Outreach and End outreach. [facility] 07-14-2021 Note Patient Outreach ([facility] RADHAMI SULTANA ([id number]) 1935 F Date Time Provider Department 07/14/21 QUINTON MACIEL During your visit today, we recorded the following information about you: Quinton Maciel RN 07/14/2021 4:02 PM Signed [facility] TELEPHONIC OUTREACH Provider Action/FYI: Denies any [...] like to speak with a social work marine steam fitter to help give you support for any [...] you up for automated weekly questionnaires through [employer]. This is an easy way for us [...] - Diarrhea CEFDINIR 01/19/2017 6 - Diarrhea VMUHOPW-FLB-MLH REDUCTASE INHIBIT*07/26/2015 14 - Other: See Comments [...] 03/27/2018 Aftercare [Z51.89] 03/27/2018 Encounter Status:Closed by QUINTON MACIEL on 07/14/21 [facility] 06-30-2021 Note Patient Outreach ([facility] MI REEDER ([id number]) 1935 F Date Time Provider Department 06/30/21 QUINTON MACIEL [facility] During your visit today, we recorded the following information about you: Quinton Maciel RN 06/30/2021 11:00 AM Signed [facility] TELEPHONIC OUTREACH Provider Action/FYI: Denies any [...] like to speak with a social work marine steam fitter to help give you support for any [...] you up for automated weekly questionnaires through [employer]. This is an easy way for us [...] - Diarrhea CEFDINIR 01/19/2017 6 - Diarrhea YGMKQQU-FHX-SXF REDUCTASE INHIBIT*07/26/2015 14 - Other: See Comments [...] 03/27/2018 Aftercare [Z51.89] 03/27/2018 Encounter Status:Closed by QUINTON MACIEL on 06/30/21 [facility] 06-30-2021 Note HNO ID: [id number] Author: Quinton Maciel RN Service: ? Author Type: Registered [...] like to speak with a social work marine steam fitter to help give you support for any [...] you up for automated weekly questionnaires through [employer]. This is an easy way for us [...] the Track Pt Outreach and End outreach. [facility] 06-15-2021 Note HNO ID: [id number] Author: Quinton Maciel RN Service: ? Author Type: Registered [...] like to speak with a social work marine steam fitter to help give you support for any [...] you up for automated weekly questionnaires through [employer]. This is an easy way for us [...] the Track Pt Outreach and End outreach. [facility] 06-02-2021 Note HNO ID: [id number] Author: Quinton Maciel RN Service: ? Author Type: Registered Nurse Type: Progress Notes Filed: 06/02/2021 12:42 PM Note Text: [facility] TELEPHONIC OUTREACH Provider Action/FYI: Another attempt. Left Vm. Contact made with patient: No - Left message - Robbie my name is Quinton stock Economics Analyst from the [facility] I am calling today for your bi-weekly check in. I am sorry I missed your call. I will reach out to you again tomorrow. (if the third call I will reach out to you again next week) Enter next patient outreach date for the following day using the Track Pt Outreach. End outreach. [facility] 06-01-2021 Note Patient Outreach [place] REED[place] ([id number]) 1935 F Date Time Provider Department 06/01/21 QUINTON MACIEL During your visit today, we recorded the following information about you: Quinton Maciel RN 06/01/2021 11:40 AM Signed [facility] TELEPHONIC OUTREACH Provider Action/FYI: Left VM. Contact made with patient: No - Left message - Robbie my name is Quinton montrell Economics Analyst from the [facility] I am calling today for your bi-weekly check in. I am sorry I missed your call. I will reach out to you again tomorrow. (if the third call I will reach out to you again next week) Enter next patient outreach date for the following business day using the Track Pt Outreach. End outreach. Quinton Maciel RN 06/02/2021 12:42 PM Signed [facility] TELEPHONIC OUTREACH Provider Action/FYI: Another attempt. Left Vm. Contact made with patient: No - Left message - Iglesianathalie my name is Quinton montrell Economics Analyst from the [facility] I am calling today for your bi-weekly check in. I am sorry I missed your call. I will reach out to you again tomorrow. (if the third call I will reach out to you again next week) Enter next patient outreach date for the following business day using the [employer]ium Pt Outreach. End outreach. Quinton Maciel RN 06/15/2021 3:36 PM Signed [facility] TELEPHONIC OUTREACH Provider Action/FYI: Denies any [...] like to speak with a social work marine steam fitter to help give you support for any [...] you up for automated weekly questionnaires through [employer]. This is an easy way for us [...] - Diarrhea CEFDINIR 01/19/2017 6 - Diarrhea [id number]-[id number] REDUCTASE INHIBIT*07/26/2015 14 - Other: See Comments [...] List As O (more content not included)... [facility] 06-01-2021 Note HNO ID: [id number] Author: Quinton Macile RN Service: ? Author Type: Registered Nurse Type: Progress Notes Filed: 06/01/2021 11:40 AM Note Text: [employer] TELEPHONIC OUTREACH Provider Action/FYI: Left VM. Contact made with patient: No - Left message - Robbie my name is Quinton stock Economics Analyst from the [facility] I am calling today for your bi-weekly check in. I am sorry I missed your call. I will reach out to you again tomorrow. (if the third call I will reach out to you again next week) Enter next patient outreach date for the following business day using the Track Pt Outreach. End outreach. [facility] 05-16-2021 Note HNO ID: [id number] Author: Quinton Maciel RN Service: ? Author Type: Registered Nurse Type: Progress Notes Filed: 05/16/2021 11:21 AM Note Text: [employer] TELEPHONIC OUTREACH Provider Action/FYI: Doing well overall. [...] like to speak with a social work marine steam fitter to help give you support for any [...] you up for automated weekly questionnaires through [employer]. This is an easy way for us [...] the Track Pt Outreach and End outreach. [facility] 05-12-2021 Note HNO ID: [id number] Author: Quinton Maciel RN Service: ? Author Type: Registered Nurse Type: Progress Notes Filed: 05/12/2021 2:39 PM Note Text: [facility] TELEPHONIC OUTREACH Provider Action/FYI: Left VM. Contact made with patient: No - Left message - Robbie my name is Quinton stock Economics Analyst from the [facility] I am calling today for your bi-weekly check in. I am sorry I missed your call. I will reach out to you again tomorrow. (if the third call I will reach out to you again next week) Enter next patient outreach date for the following business day using the Track Pt Outreach. End outreach. [facility] 05-12-2021 Note Patient Outreach [place] REED[place] ([id number]) 1935 F Date Time Provider Department 05/12/21 QUINTON MACIEL During your visit today, we recorded the following information about you: Quinton Maciel RN 05/12/2021 2:39 PM Signed [facility] TELEPHONIC OUTREACH Provider Action/FYI: Left VM. Contact made with patient: No - Left message - Hello my name is Quinton your Economics Analyst from the [facility] I am calling today for your bi-weekly check in. I am sorry I missed your call. I will reach out to you again tomorrow. (if the third call I will reach out to you again next week) Enter next patient outreach date for the following using the Track Pt Outreach. End outreach. Quinton Maciel RN 05/16/2021 11:21 AM Signed [facility] TELEPHONIC OUTREACH Provider Action/FYI: Doing well overall. [...] like to speak with a social work marine steam fitter to help give you support for any [...] you up for automated weekly questionnaires through [employer]. This is an easy way for us [...] - Diarrhea CEFDINIR 01/19/2017 6 - Diarrhea [id number] REDUCTASE INHIBIT*07/26/2015 14 - Other: See Comments [...] Aftercare [Z51.89] 03/27/2018 (more content not included)... [facility] 04-28-2021 Note HNO ID: [id number] Author: Quinton Maciel RN Service: ? Author Type: Registered Nurse Type: Progress Notes Filed: 04/28/2021 4:20 PM Note Text: [employer] CD Enrollment Provider Action/FYI: Enrolled in program telephonically. Patient referred by: [facility] [place] Contact made with patient: Yes - Patient identified by name and . Discussed care with patient Robbie this is Quinton Maciel RN and I am calling from Bill Noble MD office at the [facility]. I am a RN Economics Analyst with our [employer] Chronic Disease Management program. [...] few questions once a week through your [employer] account. It will automatically show up for [...] goal align with programs offered at the [facility]? No Patient accepts telephonic outreach Thank [...] stressful. Can we connect you with a [facility] Health Web Press Operator Helper Offset to find a program that could help [...] business day two weeks from today?s date) [facility] 04-28-2021 Note Patient Outreach ([facility]) [place] REED[place] ([id number]) 1935 F Date Time Provider Department 04/28/21 QUINTON MACIEL During your visit today, we recorded the following information about you: Quinton Maciel RN 04/28/2021 4:20 PM Signed [employer] CD Enrollment Provider Action/FYI: Enrolled in program telephonically. Patient referred by: [facility] [place] Contact made with patient: Yes - Patient identified by name and . Discussed care with patient Robbie this is Quinton Maciel RN and I am calling from Bill Noble MD office at the [facility]. I am a RN Economics Analyst with our [employer] Chronic Disease Management program. [...] few questions once a week through your [employer] account. It will automatically show up for [...] goal align with programs offered at the [facility]? No Patient accepts telephonic outreach Thank [...] stressful. Can we connect you with a [facility] Health Web Press Operator Helper Offset to find a program that could help [...] - Diarrhea CEFDINIR 01/19/2017 6 - Diarrhea [id number] REDUCTASE INHIBIT*07/26/2015 14 - Other: See Comments Comments: Body aches Date Reviewed: 05/21/2019 Reviewed by: Layla Gorman MA - Fully Assessed Reason for Visit: community monitoring outreach [Other] Cmt: enrollment Primary Visit Diagnosis:Centrilobular emphysema (HCC) [J43.2] Order(s):CONSULT TO PRIMARY CARE COORDINATION [facility] [[id number]] Order #: [id number]: 1 Prescriptions as of 04/28/2021 Sig: LOSARTAN [...] 03/27/2018 Aftercare [Z51.89] 03/27/2018 Encounter Status:Closed by QUINTON MACIEL on 04/28/21 [facility] 03-24-2018 History of Past i llness Narrative Problem Noted Date Resolved Date Hypokalemia 03/24/2018 03/26/2018 Hip fracture, left 03/23/2018 03/26/2018 UTI (urinary tract infection) 09/19/2016 Overview: This was present on on admission Evaluating with urine culture Treating with Bactrim Pancreatitis 02/27/2015 04/05/2017 documented as of this encounter (statuses as of 03/25/2022) [facility] Pain in left hip Pain in joint, pelvic region and thigh documented in this encounter [facility] for referral (narrative)* Diagnostic Procedure Only (Routine) - Closed Specialty Diagnoses / Procedures Referred By Contac t Referred To Contact XR IMAGING Diagnoses Pain in left hip Procedures XR HIP 2V AP/LAT LEFT ([place]) RADEX HIP UNILATERAL WITH PELVIS 2-3 VIEWS Carlos Torres PA-C [address] [place] [address] Xr Imaging Referral ID Status Reason Start Date Expiration Date V isits Requested Visits Authorized [id number] Closed Auto-Generate d Referral 03/03/2022 04/01/2023 [facility] Diagnostic Procedure Only (Routine) - Closed Specialty Diagnoses / Procedures Referred By Duane t Referred To Contact XR IMAGING Diagnoses Pain in left hip Procedures XR HIP 2V AP/LAT LEFT ([place],ME) RADEX HIP UNILATERAL WITH PELVIS 2-3 VIEWS Carlos Torres PA-C [address] [place] [address] Xr Imaging Referral ID Status Reason Start Date Expiration Date V isits Requested Visits Authorized [id number] Closed Auto-Generate d Referral 03/03/2022 04/01/2023 1 1 [facility] Advance Directives No Advanced Directives Records FoundDocuments on File Type Date 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 Advance Directive(s) 05/19/2019 1:42 PM Advance Directive(s) 03/22/2018 10:11 PM Advance Directive(s) 09/19/2016 2:25 PM Summary Purpose Family History No Family History Records FoundNo Family History Records FoundNo Family History Records Found Additional Source Comments Source Comments (unrecognize d section and content) In the event this informatio n is protected by the Federal Confidentiality of Alcohol and Drug Abuse Patient Records regulations: The Federal rules restrict any use of the information to criminally investigate or prosecute any alcohol or drug abuse patient.[facility] Care Teams (unrecognized sec tion and content) 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 Start Date End Date Jj Jamison, [email or web address] [email or web address] [address] [place] [address] PCP - General Family Practice 08/03/21 Agustin Anguiano [address] [facility] [address] [place] [address] Physician Orthopedics 10/13/19 INFORMATION SOURCE (unrecogn ized section and content) DATE CREATED AUTHOR 04/04/2022 [facility] DATE CREATED AUTHOR AUTHOR'S ORGANIZ ATION 04/30/2024 [facility] DATE CREATED AUTHOR AUTHOR'S ORGANIZ ATION 05/01/2024 [facility] FOR RECORDS PERTAINING TO PATIENTS WHO ARE [...] BE BASED ON THE PRIMARY CLINICAL RECORDS. [facility] [employer] [facility]. provides no warranty or guarantee of the accuracy or completeness of information in this document.
[2024-09-16 21:30] LABS: Absolute Lymphocyte Count 1.74 X10^3/uL (0.83-4.51); Absolute Neutrophil Count 3.7 X10^3/uL (2.0-7.7); Basophil# 0.02 X10^3/uL; Basophil% 0.3 % (0-1); Eosinophil# 0.04 X10^3/uL; Eosinophils% 0.6 % (0-5); Hematocrit 41.9 % (37-47); Hemoglobin 14.2 g/dL (12.0-15.0); Lymphocyte # 1.74 X10^3/ul (0.83-4.51); Lymphocyte % 26.9 % (19-41); Mean Corp Hgb Conc 33.9 g/dL (32-36); Mean Corpuscular Hgb 31.8 pg (27.0-32.0); Mean Corpuscular Volume 93.7 fL (81-99); Mean Platelet Vol. 11.2 fl (6.2-12.0); Monocyte# 0.94 X10^3/uL; Monocyte% 14.6 % (0-10); NRBC Flagged by Analyzer 0 % (0-5); Neutrophil % 57.3 % (47-70); Platelet Count 202 K/mm3 (150-450); RBC Distribution Width CV 12.5 % (11.6-14.6); RBC Distribution Width SD 43.3 fl (35.1-43.9); Red Blood Count 4.47 M/mm3 (4.2-5.4); White Blood Count 6.5 K/mm3 (4.4-11.0)
[2024-09-16 21:41] LABS: ALB/GLOB Ratio 1.3 RATIO (0.9-2.4); AST(SGOT) 18 U/L (15-37); Alanine Aminotransfer ALT/SGPT 20 U/L (13-56); Alkaline Phosphatase 80 U/L (45-117); Anion Gap 4 (5-15); BUN 14 mg/dL (7-18); BUN/Creat Ratio 18.9 RATIO (10-20); Calcium,Total 10.2 mg/dL (8.5-10.1); Chloride 105 mmol/L (98-107); Creatinine, Serum 0.74 mg/dL (0.55-1.02); EST Glomerular Filtration Rate 78 mL/min (>60); Est Glom Filt Rate - Afr Amer 95 mL/min (>60); Globulin 3.1 g/dL (2.2-4.2); Glucose 94 mg/dL (74-106); Potassium 4.6 mmol/L (3.5-5.1); Protein, Total 7.1 g/dL (6.4-8.2); Sodium Level 139 mmol/L (136-145)
== END | disposition home or self-care (01) ==
PROVIDERS: PCP Nurse Practitioner; Referring Provider Nurse Practitioner; Visit Provider Nurse Practitioner
DX: I10 Essential (primary) hypertension (principal); F41.9 Anxiety disorder, unspecified; E78.5 Hyperlipidemia, unspecified; R53.82 Chronic fatigue, unspecified; R63.0 Anorexia
CPT/HCPCS: 80053; 85025